=== PATIENT | male | born 1945 | race Caucasian/White ===

== ENCOUNTER 2016-08-12 01:18 | Emergency (ER) | payer OTHER, BC ==
[~2016-08-12] VITALS: Ht 170.2 cm; Wt 101.6 kg
[~2016-08-12 01:18] MED LIST: ALBU18002 INH; AMLO-110 PO; ATOR-22 PO; CALC-20 PO; CHOL1000 PO; CYCL0.052 OP; DOCU100C PO; IBUP-1050 PO; METO25TA56 PO; MULTCAP33 PO; PANT40TA PO; POLYSOL4 OP; PRD/1 PO; SILD100T PO; SYMIN160 INH; TRIATAB3 PO; USTE45IN INJ
[2016-08-12 01:25] VITALS: TEMP 36.6; Ht 170.2 cm; Wt 101.6 kg
[2016-08-12] MEDS ORDERED: SODIUM CHLORIDE 0.9% 500ML 500 ML IV STA (02:05)
[2016-08-12] MEDS ORDERED: MULT-190 PO (02:12)
[2016-08-12] MEDS ORDERED: CYCL0.052 OP (02:15)
[2016-08-12 02:24] LABS: BASO % 0.2 %; BASO ABS # 0.01 K/uL (0-0.2); COMPLETE YES; EOS % 1.6 %; IG% 0.2 %; LYMPH % 16.8 %; LYMPH ABS # 0.94 K/uL (1.2-3.4); MEAN CELL VOLUME 86.8 fL (80-100); MEAN CORPUSCULAR HEMOGLOBIN 28.5 pg (25-34); MEAN CORPUSCULAR HGB CONC 32.9 g/dl (32-36); MEAN PLATELET VOLUME 9.6 fL (7.4-10.4); MONO % 7.3 %; NEUT % 73.9 %; PLATELET COUNT 142 K/uL (130-400); RED BLOOD COUNT 4.84 M/uL (4.7-6.1)
[2016-08-12 02:42] LABS: ALT/SGPT 89 U/L (12-78); AST/SGOT 92 U/L (15-37); BLOOD UREA NITROGEN 17 mg/dl (7-18); BUN/CREATININE RATIO 21.3 (10-20); CARBON DIOXIDE 23 mmol/L (21-32); CHLORIDE 108 mmol/L (98-107); CREATININE 0.81 mg/dl (0.60-1.40); GLUCOSE 112 mg/dl (70-99); SODIUM 143 mmol/L (136-145)
[2016-08-12 02:47] LABS: ALKALINE PHOSPHATASE 99 U/L (45-117); CKMB/CK RATIO 1.8 (0-3.0)
--- NOTE | 2016-08-12 04:14 | EMERGENCY ROOM VISIT NOTE ---
ED Visit Note First contact with patient: 02:04 I have seen and examined this patient with Jo Ann Méndez and generally agree with the treatment plan as discussed.
[2016-08-12 04:18] VITALS: O2SAT 94
[2016-08-12 04:27] VITALS: BP 135/75; PULSE 57; O2SAT 94
--- NOTE | 2016-08-12 05:28 | EMERGENCY ROOM VISIT NOTE ---
History First contact with patient: 02:04 Chief Complaint: FALL Stated Complaint: ALCOHOL OVERDOSE/FALL History of Present Illness The patient is a 70 year old male who presents to the Emergency Room with complaints of fall. Patient does not remember falling. Patient states he got up out of bed to go the bathroom and next thing he remembers he was on the ground. Patient did have some alcoholic beverages last night. Patient denies headache, neck pain, chest pain, dyspnea, abdominal pain, back pain or any other medical complaints. No drug use. Review of Systems See HPI for pertinent positives & negatives. A total of 10 systems reviewed and were otherwise negative. Past Medical/Surgical History Medical Problems: (1) COPD (chronic obstructive pulmonary disease) (2) Dyslipidemia (3) HTN (hypertension) (4) Lupus Surgical Problems: (1) H/O bilateral hip replacements (2) History of carpal tunnel surgery of left wrist (3) History of repair of anterior cruciate ligament of left knee (4) History of repair of anterior cruciate ligament of right knee (5) SLAP (superior labrum from anterior to posterior) tear Social History Smoking Status: Never Smoker Alcohol Use: occasionally Drug Use: none Marital Status: Housing Status: lives with family Current/Historical Medications Scheduled Amlodipine (Norvasc), 5 MG PO QAM Atorvastatin (Lipitor), 1 TAB PO HS Budesonide/Formoterol Fumarate (Symbicort 160/4.5 Inhaler ), 2 PUFFS INH BID Calcium Carbonate-Vitamin D (Calcium 600 + D), 1 TAB PO QAM Cholecalciferol (Vitamin D3), 1 TAB PO QAM Cyclosporine (Ophth) (Restasis), 1 DROP OP BID Metoprolol Tartrate (Lopressor) (Lopressor), 25 MG PO BID Ocuvite Preservision (Ocuvite Preservision), 2 TAB PO DAILY Pantoprazole (Protonix), 40 MG PO BID Prednisone (Prednisone), 2 MG PO QAM Sildenafil Citrate (Viagra), 50 MG PO PRN Triamterene/Hctz (Triamterene/Hctz 37.5-25MG), 1 TAB PO QAM Ustekinumab (Stelara), 1 DOSE INJ [id number] Scheduled PRN Albuterol Sulfate (Proair Respiclick), 1-2 PUFFS INH Q4-6H PRN for SOB/Wheezing Polyethylene Glycol-Propylene (Systane), 1 DROPS OP QID PRN for PRN Allergies Coded Allergies: Penicillins (Verified Allergy, Severe, THROAT SWELLING, 08/12/16) Physical Exam Vital Signs Date Time Temp Pulse Resp B/P Pulse Ox O2 Delivery O2 Flow Rate FiO2 08/12/16 04:27 57 20 135/75 94 08/12/16 04:18 94 Room Air 08/12/16 03:07 59 20 127/73 93 Room Air 08/12/16 01:25 36.6 58 18 134/77 98 Room Air Pain Rating (0-10): 0 Physical Exam PHYSICAL EXAM: VITALS: Vitals are noted on the nurse's note and reviewed by myself. Vital signs stable. GENERAL: Pleasant male, in no acute distress, nondiaphoretic, well-developed well-nourished. SKIN: The skin was without obvious lacerations or abrasions. Capillary reflex less than 2 seconds. HEAD: Normocephalic atraumatic. EARS: External auditory canals clear, tympanic membranes pearly ortiz without erythema or effusion bilaterally. No hemotympanums. No patel sign. No mastoid tenderness. EYES: Pupils equal round and reactive to light and accommodation. Conjunctivae with injection, sclerae without icterus. Extraocular movements intact. NOSE: Patent, turbinates without inflammation or discharge. No sinus tenderness. No septal hematoma or bleeding. FACE: No facial bone tenderness. Full range of motion of the jaw without tenderness. MOUTH: Mucous membranes moist. Pharynx without erythema or exudate. Uvula midline. Airway patent. Tongue does not deviate. NECK: Supple without nuchal rigidity. Cervical spine is nontender. Full range of motion of the neck without tenderness. No JVD. HEART: Regular rate and rhythm LUNGS: Clear to auscultation bilaterally without wheezes, rales or rhonchi. No dullness to percussion. No retractions or accessory muscle use. No chest wall tenderness. ABDOMEN: Positive bowel sounds x 4. Normal tympanic percussion. Soft, nontender, without masses or organomegaly. No guarding or rebound tenderness. MUSCULOSKELETAL: No tenderness of the thoracic or lumbar spine. No tenderness with pelvic rocking. Full range of motion without tenderness to palpation in all extremities. Normal gait. Strength 5/5 throughout. Peripheral pulses 2+. NEURO: Patient was alert and oriented to person place and time. Normal Mini- Mental status exam. Normal sensation to light and sharp touch. No focal neurological deficits. Medical Decision & Procedures Laboratory Results 08/12/16 01:40 Red Blood Count 4.84, Mean Corpuscular Volume 86.8, Mean Corpuscular Hemoglobin 28.5, Mean Corpuscular Hemoglobin Concent 32.9, Mean Platelet Volume 9.6, Neutrophils (%) (Auto) 73.9, Lymphocytes (%) (Auto) 16.8, Monocytes (%) (Auto) 7.3, Eosinophils (%) (Auto) 1.6, Basophils (%) (Auto) 0.2, Neutrophils # (Auto) 4.14, Lymphocytes # (Auto) 0.94, Monocytes # (Auto) 0.41, Eosinophils # (Auto) 0.09, Basophils # (Auto) 0.01 08/12/16 01:40 Test 08/12/16 01:40 08/12/16 02:25 White Blood Count 5.60 K/uL (4.8-10.8) Red Blood Count 4.84 M/uL (4.7-6.1) Hemoglobin 13.8 g/dL (14.0-18.0) Hematocrit 42.0 % (42-52) Mean Corpuscular Volume 86.8 fL (80-100) Mean Corpuscular Hemoglobin 28.5 pg (25-34) Mean Corpuscular Hemoglobin Concent 32.9 g/dl (32-36) Platelet Count 142 K/uL (130-400) Mean Platelet Volume 9.6 fL (7.4-10.4) Neutrophils (%) (Auto) 73.9 % Lymphocytes (%) (Auto) 16.8 % Monocytes (%) (Auto) 7.3 % Eosinophils (%) (Auto) 1.6 % Basophils (%) (Auto) 0.2 % Neutrophils # (Auto) 4.14 K/uL (1.4-6.5) Lymphocytes # (Auto) 0.94 K/uL (1.2-3.4) Monocytes # (Auto) 0.41 K/uL (0.11-0.59) Eosinophils # (Auto) 0.09 K/uL (0-0.5) Basophils # (Auto) 0.01 K/uL (0-0.2) RDW Standard Deviation 50.3 fL (36.4-46.3) RDW Coefficient of Variation 15.7 % (11.5-14.5) Immature Granulocyte % (Auto) 0.2 % Immature Granulocyte # (Auto) 0.01 K/uL (0.00-0.02) Anion Gap 12.0 mmol/L (3-11) Est Creatinine Clear Calc Drug Dose 99.1 ml/min Estimated GFR () 105.8 Estimated GFR (Non- 91.3 BUN/Creatinine Ratio 21.3 (10-20) Calcium Level 9.0 mg/dl (8.5-10.1) Total Bilirubin 0.3 mg/dl (0.2-1) Direct Bilirubin 0.1 mg/dl (0-0.2) Aspartate Amino Transf (AST/SGOT) 92 U/L (15-37) Alanine Aminotransferase (ALT/SGPT) 89 U/L (12-78) Alkaline Phosphatase 99 U/L (45-117) Total Creatine Kinase 174 U/L (39-308) Creatine Kinase MB 3.2 ng/ml (0.5-3.6) Creatine Kinase MB Ratio 1.8 (0-3.0) Troponin I < 0.015 ng/ml (0-0.045) Total Protein 7.9 gm/dl (6.4-8.2) Albumin 3.5 gm/dl (3.4-5.0) Ethyl Alcohol mg/dL 272.0 mg/dl (0-3) Medications Administered Medications (Trade) Dose Ordered Sig/Dyan Route Start Time Stop Time Status Last Admin Dose Admin Sodium Chloride (Nss 500ml) 500 ml @ 999 mls/hr Q31M STAT IV 08/12/16 02:05 08/12/16 02:35 DC 08/12/16 03:10 999 MLS/HR ED Course Prior records/ancillary studies reviewed and summarized above. Nursing notes reviewed. Additional history obtained from family The patient's history was concerning for fall Differential diagnosis: Etiologies such as metabolic, infection, hypo/hyperglycemia, electrolyte abnormalities, cardiac sources, intracerebral event, toxicologic, neurologic, as well as others were entertained. Physical examination: As above. ER treatment provided: IV Lock IV fluids On reassessment the patient felt better. Diagnostics interpretation by me: ECG: Normal sinus, normal intervals, no acute ST-T wave changes, rate of 56. Impression sinus spray cardiac myself The labs revealed alcohol at 272. Negative troponin. Mildly elevated LFTs most likely from the alcohol Imaging studies: Head and cervical CTs are read by stat radiology and negative for fracture or bleed. Chest x-ray with no acute consolidation or pneumothorax per my interpretation Exam and history seem consistent with fall most likely from his alcohol intoxication. His alcohol is quite high. His was highly encouraged to quit drinking as this is unhealthy. Patient had unremarkable workup besides that. He no other complaints. He was tolerating fluids. He was advised to follow-up family medicine in a day or 2 or here in the ER sooner for headache, chest pain , dyspnea, worsening signs or symptoms or as needed. Patient did not have an acute abdomen on exam. He was well-appearing. He was discharged home in the care of his family.By the evaluation outlined above emergent etiologies such as infection, electrolyte abnormalities, cardiac sources, intracerebral event, neurologic, abnormalities blood glucose, metabolic, as well as others were deemed relatively unlikely. The pt informed about the findings as listed above. All questions were answered and pleased with the treatment. Return instructions were outlined and the patient was discharged in stable condition. Referral: The patient was referred back to primary care physician for follow-up in 2 to 3 days for a recheck of the current condition. Case reviewed with my attending. Medical Decision As above Impression Primary Impression: Alcohol intoxication Additional Impression: Fall Departure Information Dispostion Home / Self-Care Condition GOOD Forms HOME CARE DOCUMENTATION FORM, IMPORTANT VISIT INFORMATION Patient Instructions My [facility], ED Intoxication Alcohol Additional Instructions Keep well-hydrated. Tylenol every 6 hours as needed for pain (Maximum 3000 mg Tylenol in 24 hr period). Read head injury handout and return for any symptoms. Avoid alcohol and contact sports/activities for one week and follow up with family doctor prior to returning to these activities if still symptomatic. Ice and elevate head. Follow up with family doctor in 2-3 days. No driving for the next 24 hours. Recommend no alcohol for the next 48 hours and avoid binge drinking in the future. Return to ER sooner for chest pain, abdominal pain, worsening signs or symptoms or as needed. Problem Qualifiers
--- NOTE | 2016-08-12 07:05 | DIAGNOSTIC IMAGING REPORT ---
CT SCAN OF THE BRAIN WITHOUT IV CONTRAST CLINICAL HISTORY: Fall. Intoxication. COMPARISON STUDY: No priors. TECHNIQUE: Unenhanced axial CT scan of the brain is performed from the vertex to the skull base. FINDINGS: Brain parenchyma: There are age-related involutional changes noting mild subcortical and periventricular microangiopathic change. There is no hemorrhage, mass effect, or evidence of acute territorial ischemia by CT criteria. Ray-white matter is preserved. No extra-axial fluid collection is seen. Ventricles, sulci, cisterns: Prominent secondary to involutional change. Intracranial vasculature: There is atherosclerotic calcification of the cavernous carotid and vertebral arteries. Calvarium: There is no depressed calvarial fracture. Sinuses and mastoids: The visualized paranasal sinuses are clear. The mastoid air cells are well pneumatized. Orbits: The bony orbits are grossly intact. IMPRESSION: There is no hemorrhage, mass effect, or evidence of acute territorial ischemia by CT criteria. Electronically signed by: Wily Melendez M.D. 08/12/2016 7:03 AM Dictated Date/Time: 08/12/2016 7:01 AM
--- NOTE | 2016-08-12 09:27 | DIAGNOSTIC IMAGING REPORT ---
CT SCAN OF THE CERVICAL SPINE CLINICAL HISTORY: Fall. Intoxication. COMPARISON STUDY: No priors. TECHNIQUE: CT scan of the cervical spine is performed from the skull base to the upper thoracic spine. Images are reviewed in the axial, sagittal, and coronal planes. IV contrast was not administered for this examination. CT DOSE: 1137.59 mGy.cm FINDINGS: Skeletal structures: The skeletal structures are osteopenic. There is no evidence of fracture or subluxation involving the cervical spine. Vertebral body height is maintained. There is minimal retrolisthesis of C4-C5 and C5-C6. Alignment is otherwise maintained. There is straightening of cervical lordosis with reversal centered at C4. The odontoid process and lateral masses are intact. The atlantoaxial articulation is preserved noting productive degenerative change. The spinous processes appear intact. Anterior osteophytes are seen throughout. There is moderate to advanced multilevel cervical spondylosis. Uncovertebral and facet arthropathy contribute to neural foraminal narrowing at most levels. Intervertebral discs: There is moderate degenerative disc space narrowing seen at C4-C5 and C5-C6. The remaining disc spaces appear preserved. Central canal: Posterior disc osteophyte complexes at C3-C4, C4-C5, and C5-C6 likely contribute to acquired compromise of the central canal. Soft tissues: The prevertebral and paraspinous soft tissues are within normal limits. There is advanced after carotid calcification of the carotid bulbs. There is a 2.6 cm sebaceous cyst identified in the posterior left lower neck on image #412. Calvarium: The visualized calvarium at the skull base appears intact. Brain parenchyma: Partially visualized brain parenchyma the skull base is within normal limits. Sinuses and mastoids: The visualized paranasal sinuses are clear. The mastoid air cells are well pneumatized. Lung apices: Clear as visualized. IMPRESSION: 1. There is no evidence of fracture or subluxation involving the cervical spine. 2. Osteopenia and spondylotic change as above. Electronically signed by: Wily Melendez M.D. 08/12/2016 9:26 AM Dictated Date/Time: 08/12/2016 9:22 AM
--- NOTE | 2016-08-12 09:59 | DIAGNOSTIC IMAGING REPORT ---
SINGLE VIEW CHEST CLINICAL HISTORY: Atypical chest pain. Intoxication. FINDINGS: An AP, portable, upright chest radiograph is compared to study dated 09/11/2012 and correlated with chest CT dated 10/11/2012. The examination is degraded by portable technique, large body habitus, and apical and out of positioning. The heart is enlarged. The pulmonary vasculature is noncongested. Mild elevation of the right hemidiaphragm and chronic interstitial thickening is similar to previous. No airspace consolidation, large pleural effusion, or pneumothorax is seen. The bony thorax is grossly intact. IMPRESSION: Cardiomegaly with no active disease in the chest. Electronically signed by: Wily Melendez M.D. 08/12/2016 9:57 AM Dictated Date/Time: 08/12/2016 9:56 AM
[2016-09-04] MEDS ORDERED: ASPI81TA28 PO (14:38)
[2016-09-04] MEDS ORDERED: OMEG10002 PO (14:38)
== END 2016-08-12 04:29 | disposition home or self-care (01) ==
LOC: EDBD 01:18 → C.EDB 01:19
DX: F10.129 Alcohol abuse with intoxication, unspecified (principal); Y90.8 Blood alcohol level of 240 mg/100 ml or more; W19.XXXA Unspecified fall, initial encounter; I10 Essential (primary) hypertension; E78.5 Hyperlipidemia, unspecified; J44.9 Chronic obstructive pulmonary disease, unspecified; M32.9 Systemic lupus erythematosus, unspecified; Z96.642 Presence of left artificial hip joint; Z96.643 Presence of artificial hip joint, bilateral; Z87.828 Personal history of other (healed) physical injury and trauma; Z79.899 Other long term (current) drug therapy; Z88.0 Allergy status to penicillin

== ENCOUNTER → 2016-12-04 | Outpatient (CLI) | payer OTHER, BC ==
[~2016-12-04] MED LIST changes: +ASPI81TA28 PO; -DOCU100C PO; -IBUP-1050 PO; +MULT-190 PO; -MULTCAP33 PO; +OMEG10002 PO
== END | disposition home or self-care (01) ==
LOC: C.MAMM 15:07
PROVIDERS: ATTEND Internal Medicine
DX: Z79.52 Long term (current) use of systemic steroids (principal)

== ENCOUNTER → 2017-11-14 | Outpatient (CLI) | payer OTHER, BC ==
--- NOTE | 2017-11-14 14:50 | DIAGNOSTIC IMAGING REPORT ---
CHEST 2 VIEWS ROUTINE CLINICAL HISTORY: J45.909 [id number] dyspnea COMPARISON STUDY: 08/12/2016 FINDINGS: Mild stable cardia megaly. Diaphragms smooth. Trace pleural fluid right base. Mild increase in basilar interstitial markings compared to the prior study. IMPRESSION: Mild basilar bronchitis. Trace pleural fluid right base. The above report was generated using voice recognition software. It may contain grammatical, syntax or spelling errors. Electronically signed by: Wood Skaggs M.D. 11/14/2017 2:49 PM Dictated Date/Time: 11/14/2017 2:48 PM
== END | disposition home or self-care (01) ==
LOC: C.RAD1850 14:18
PROVIDERS: ATTEND Internal Medicine
DX: J45.909 Unspecified asthma, uncomplicated (principal); J40 Bronchitis, not specified as acute or chronic

== ENCOUNTER 2018-03-01 09:36 | Emergency (ER) | payer OTHER, BC ==
[~2018-03-01] VITALS: Ht 170.2 cm; Wt 95.8 kg
[~2018-03-01 09:36] MED LIST changes: -AMLO-110 PO; +AMLO5TAB3 PO; +APIX1TAB PO; -ASPI81TA28 PO; +CLOP1TAB54 PO; +METO-551 PO; -METO25TA56 PO; -MULT-190 PO; +MULTCAP33 PO
[2018-03-01 09:41] VITALS: Ht 170.2 cm; Wt 95.8 kg
[2018-03-01] MEDS ORDERED: OXYMETAZOLINE HCL 0.05% NA SPR 15 ML BTL ONE (09:46)
--- NOTE | 2018-03-01 09:57 | EMERGENCY ROOM VISIT NOTE ---
History Report prepared by Papo: Sandra Alvarado Under the Supervision of: Dr. Gabriel Billy M.D. First contact with patient: 09:50 Chief Complaint: NOSE BLEED (MINOR) Stated Complaint: NOSE BLEED History of Present Illness The patient is a 72 year old male who presents to the Emergency Room with complaints of a mild nosebleed beginning around 0815 this morning. EMR reviewed Pt is on Eliquis and Plavix. He was seen by Dr. Heredia ENT and had endoscopy cautery and posterior packing in the OR on . 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 He describes his bleeding as a "trickling." He denies any SOB. Patient used Afrin at home but bleed continue to trickle. Source of History: patient Onset: 0815 this morning Position: nose (right nare) Symptom Intensity: mild Quality: other (trickling) Associated Symptoms: No SOB Review of Systems See HPI for pertinent positives and negatives. A total of ten systems were reviewed and were otherwise negative. Past Medical & Surgical Medical Problems: (1) Asthma (2) Atrial flutter (3) COPD (chronic obstructive pulmonary disease) (4) Dyslipidemia (5) HTN (hypertension) (6) Lupus Surgical Problems: (1) H/O bilateral hip replacements (2) History of carpal tunnel surgery of left wrist (3) History of coronary artery stent placement (4) History of repair of anterior cruciate ligament of left knee (5) History of repair of anterior cruciate ligament of right knee (6) Hx of cardiac catheterization (7) S/P cholecystectomy (8) SLAP (superior labrum from anterior to posterior) tear Family History Cancer Gallbladder disease Heart disease Hypertension Social History Smoking Status: Never Smoker Alcohol Use: heavy Drug Use: none Marital Status: Housing Status: lives with family Current/Historical Medications Scheduled Amlodipine (Norvasc), 5 MG PO DAILY Apixaban (Eliquis), 5 MG PO BID Atorvastatin (Lipitor), 80 MG PO HS Budesonide/Formoterol Fumarate (Symbicort 160-4.5 Mcg/Act), 2 PUFFS INH BID Calcium Carbonate-Cholecalcife (Calcium 600+D 600-800 mg-Unit), 1 TAB PO DAILY Clopidogrel (Plavix), 75 MG PO DAILY Cyclosporine (Ophth) (Restasis), 1 DROP OP BID Metoprolol Tartrate (Lopressor) (Lopressor), 50 MG PO BID Multiple Vitamins W/ Minerals (Preservision Areds 2), 2 CAP PO QPM Pantoprazole (Protonix), 40 MG PO BID Polyethylene Glycol-Propylene (Systane), 1 DROPS OP UD Prednisone (Prednisone), 2 MG PO DAILY Triamterene/Hctz (Dyazide 37.5MG/25MG), 1 CAP PO DAILY Ustekinumab (Stelara), 45 MG INJ UD Scheduled PRN Albuterol Sulfate (Proair Respiclick), 2 PUFFS INH DAILY PRN for SOB/Wheezing Allergies Coded Allergies: Penicillins (Verified Allergy, Severe, THROAT SWELLING, 03/01/18) Physical Exam Vital Signs Date Time Temp Pulse Resp B/P (MAP) Pulse Ox O2 Delivery O2 Flow Rate FiO2 03/01/18 10:52 47 14 145/62 97 03/01/18 09:41 82 18 136/81 97 Room Air Physical Exam Physical Exam GENERAL: He is oriented to person, place, and time. He appears well-developed and well-nourished. He does not appear distressed. HENT: Exam performed. Head: Normocephalic and atraumatic. Right Ear: External ear normal. No mastoid tenderness. Left Ear: External ear normal. No mastoid tenderness. Nose: Epistaxis from the right nare Mouth/Throat: The oropharynx is clear and moist. No trismus in the jaw. No dental abscesses or uvula swelling. No oropharyngeal exudate or tonsillar abscesses. EYES: Conjunctivae and EOM are normal. Pupils are equal, round, and reactive to light. Right eye exhibits no discharge. Left eye exhibits no discharge. No scleral icterus. NECK: Normal range of motion. Neck supple. No JVD present. No spinous process tenderness present. No carotid bruit present. No rigidity. No tracheal deviation and normal range of motion present. No Brudzinski's sign and no Kernig 's sign noted. CV: Normal rate, regular rhythm, normal heart sounds and intact distal pulses. There is no peripheral edema. Palpable radial pulses bue. PULM/CHEST: Effort normal and breath sounds normal. No respiratory distress. No stridor. He has no wheezes. He has no rales. Chest Wall: He exhibits no tenderness. ABD: The abdomen is soft. Bowel sounds are normal. He has no distension. No mass is present. There is no tenderness. There is no rebound, no guarding, no Perez's sign and no tenderness at McBurney's point. Rovsig negative. MUSC/SKEL: Normal range of motion. There is no peripheral edema, tenderness or deformity. LYMPH: No cervical adenopathy. NEURO: He is alert and oriented to person, place, and time. He has normal strength. No cranial nerve deficit or sensory deficit. Coordination and gait normal. GCS eye subscore is 4. GCS verbal subscore is 5. GCS motor subscore is 6. Cerebellar tests wnl. SKIN: Skin is warm and dry. He is not diaphoretic. PSYCH: He has a normal mood and affect. Behavior is normal. Judgment and thought content normal. Medical Decision & Procedures ED Course 0950: EMR reviewed Pt is on Eliquis and Plavix. He was seen by Dr. Yan JIMÉNEZ and had endoscopy cautery and posterior packing in the OR on . 0951: The patient was evaluated in room A12. A complete history and physical exam was performed. Manual pressure was applied to his external nares. Will recheck on the patient. 1023: I checked on the patient at this time. His nosebleed has stopped. He will be observed in the ED to ensure his nosebleed does not begin again. If it does not, he is in agreement that he can be discharged home. 1039: Epistaxis resolved. DISCHARGE - Plan of care discussed with patient and questions answered. The patient was given both verbal and printed discharge instructions. The patient verbalized understanding and ability to comply. The patient is to seek outpatient follow up as noted in the discharge instructions. The patient verbalized understanding and ability to comply. The patient is discharged in stable condition. The patient was instructed to return for worsening symptoms. Medical Decision 0950: EMR reviewed Pt is on Eliquis and Plavix. He was seen by Dr. Yan JIMÉNEZ and had endoscopy cautery and posterior packing in the OR on . 0951: The patient was evaluated in room A12. A complete history and physical exam was performed. Manual pressure was applied to his external nares. Will recheck on the patient. 1023: I checked on the patient at this time. His nosebleed has stopped. He will be observed in the ED to ensure his nosebleed does not begin again. If it does not, he is in agreement that he can be discharged home. 1039: Epistaxis resolved. DISCHARGE - Plan of care discussed with patient and questions answered. The patient was given both verbal and printed discharge instructions. The patient verbalized understanding and ability to comply. The patient is to seek outpatient follow up as noted in the discharge instructions. The patient verbalized understanding and ability to comply. The patient is discharged in stable condition. The patient was instructed to return for worsening symptoms. Medication Reconcilliation Current Medication List: was personally reviewed by me Blood Pressure Screening Patient's blood pressure: Normal blood pressure Blood pressure disposition: Did not require urgent referral Impression Primary Impression: Epistaxis Scribe Attestation The scribe's documentation has been prepared under my direction and personally reviewed by me in its entirety. I confirm that the note above accurately reflects all work, treatment, procedures, and medical decision making performed by me. The chart was completed utilizing [employer] Speech voice recognition software. Grammatical errors, random word insertions, pronoun errors, and incomplete sentences are an occasional consequence of this system due to software limitations, ambient noise, and hardware issues. Any formal questions or concerns about the content, text, or information contained within the body of this dictation should be directly addressed to the physician for clarification. Departure Information Dispostion Home / Self-Care Referrals Walt Caro M.D. (PCP) Forms HOME CARE DOCUMENTATION FORM, IMPORTANT VISIT INFORMATION, WORK / SCHOOL INSTRUCTIONS Patient Instructions My [facility]
[2018-03-01] MEDS ORDERED: CYCL0.052 OP (10:23)
[2018-03-01] MEDS ORDERED: PANT40TA PO (10:23)
[2018-03-01] MEDS ORDERED: PRD/1 PO (10:23)
[2018-03-01] MEDS ORDERED: MULT60CA PO (10:23)
[2018-03-01] MEDS ORDERED: ALBU18002 INH (10:23)
[2018-03-01] MEDS ORDERED: SYMIN INH (10:23)
[2018-03-01] MEDS ORDERED: CLOP1TAB15 PO (10:23)
[2018-03-01] MEDS ORDERED: AMLO5TAB3 PO (10:23)
[2018-03-01] MEDS ORDERED: METO50TA16 PO (10:23)
[2018-03-01] MEDS ORDERED: APIX1TAB3 PO (10:23)
[2018-03-01] MEDS ORDERED: ATOR80TA PO (10:23)
[2018-03-01] MEDS ORDERED: POLYSOL4 OP (10:23)
[2018-03-01] MEDS ORDERED: CALC-459 PO (10:23)
[2018-03-01] MEDS ORDERED: TRIA37.5 PO (10:23)
[2018-03-01] MEDS ORDERED: USTE45IN2 INJ (10:23)
[2018-03-01 10:52] VITALS: BP 145/62; PULSE 47; O2SAT 97
== END 2018-03-01 10:53 | disposition home or self-care (01) ==
LOC: C.EDB 09:37 → C.EDA 10:53
DX: R04.0 Epistaxis (principal); Z79.01 Long term (current) use of anticoagulants; Z79.02 Long term (current) use of antithrombotics/antiplatelets; I10 Essential (primary) hypertension; I48.92 Unspecified atrial flutter; E78.5 Hyperlipidemia, unspecified; J44.9 Chronic obstructive pulmonary disease, unspecified; Z88.0 Allergy status to penicillin

== ENCOUNTER 2018-03-03 10:13 | Emergency (ER) | payer OTHER, BC ==
[~2018-03-03] VITALS: Ht 170.2 cm; Wt 95.1 kg
[~2018-03-03 10:13] MED LIST changes: -APIX1TAB PO; +APIX1TAB3 PO; -ATOR-22 PO; +ATOR80TA PO; -CALC-20 PO; +CALC-459 PO; -CHOL1000 PO; +CLOP1TAB15 PO; -CLOP1TAB54 PO; -METO-551 PO; +METO50TA16 PO; +MULT60CA PO; -MULTCAP33 PO; -OMEG10002 PO; -SILD100T PO; +SYMIN INH; -SYMIN160 INH; +TRIA37.5 PO; -TRIATAB3 PO; -USTE45IN INJ; +USTE45IN2 INJ
[2018-03-03 10:27] VITALS: Ht 170.2 cm; Wt 95.1 kg
[2018-03-03] MEDS ORDERED: OXYMETAZOLINE HCL 0.05% NA SPR 15 ML BTL ONE (10:45)
[2018-03-03 12:05] VITALS: BP 140/77; PULSE 50; O2SAT 94
[2018-03-03] MEDS ORDERED: SILVER NITR/POTASSIUM NITRATE APPLICATOR ONE (12:11)
--- NOTE | 2018-03-03 12:29 | EMERGENCY ROOM VISIT NOTE ---
History First contact with patient: 10:31 Chief Complaint: NOSE BLEED (MINOR) Stated Complaint: NOSE BLEED History of Present Illness The patient is a 72 year old male who presents to the Emergency Room with complaints of right-sided nosebleed. The patient's symptoms started overnight. It is intermittently bled since then. He has had several nosebleeds in the past month. He has seen Dr. Heredia at least twice. He is on Eliquis and Plavix. The patient denies any other bleeding issues. He denies any lightheadedness or dizziness. He denies any specific trauma that resulted in his nosebleed. Review of Systems As above otherwise negative for 10 systems Past Medical/Surgical History Medical Problems: (1) Asthma (2) Atrial flutter (3) COPD (chronic obstructive pulmonary disease) (4) Dyslipidemia (5) HTN (hypertension) (6) Lupus Surgical Problems: (1) H/O bilateral hip replacements (2) History of carpal tunnel surgery of left wrist (3) History of coronary artery stent placement (4) History of repair of anterior cruciate ligament of left knee (5) History of repair of anterior cruciate ligament of right knee (6) Hx of cardiac catheterization (7) S/P cholecystectomy (8) SLAP (superior labrum from anterior to posterior) tear Family History Cancer Gallbladder disease Heart disease Hypertension Social History Smoking Status: Former Smoker Alcohol Use: heavy Drug Use: none Marital Status: Housing Status: lives with family Current/Historical Medications Scheduled Amlodipine (Norvasc), 5 MG PO DAILY Apixaban (Eliquis), 5 MG PO BID Atorvastatin (Lipitor), 80 MG PO HS Budesonide/Formoterol Fumarate (Symbicort 160-4.5 Mcg/Act), 2 PUFFS INH BID Calcium Carbonate-Cholecalcife (Calcium 600+D 600-800 mg-Unit), 1 TAB PO DAILY Clopidogrel (Plavix), 75 MG PO DAILY Cyclosporine (Ophth) (Restasis), 1 DROP OP BID Metoprolol Tartrate (Lopressor) (Lopressor), 50 MG PO BID Multiple Vitamins W/ Minerals (Preservision Areds 2), 2 CAP PO QPM Pantoprazole (Protonix), 40 MG PO BID Polyethylene Glycol-Propylene (Systane), 1 DROPS OP UD Prednisone (Prednisone), 2 MG PO DAILY Triamterene/Hctz (Dyazide 37.5MG/25MG), 1 CAP PO DAILY Ustekinumab (Stelara), 45 MG INJ UD Scheduled PRN Albuterol Sulfate (Proair Respiclick), 2 PUFFS INH DAILY PRN for SOB/Wheezing Physical Exam Vital Signs Date Time Temp Pulse Resp B/P (MAP) Pulse Ox O2 Delivery O2 Flow Rate FiO2 03/03/18 12:05 50 20 140/77 94 Room Air 03/03/18 10:27 69 20 137/81 97 Room Air Physical Exam CONSTITUTIONAL/VITAL SIGNS: Reviewed / noted above. GENERAL: Non-toxic in appearance. INTEGUMENTARY: Warm, dry, and [place]. HEAD: Normocephalic. EYES: without scleral icterus or trauma. ENT/OROPHARYNX: clear and moist. There is no active bleeding at this time. There appears to have been bleeding from the right nares recently. There is no posterior oropharyngeal bleeding. LYMPHADENOPATHY/NECK: Is supple without lymphadenopathy or meningismus. RESPIRATORY: Lungs clear and equal. CARDIOVASCULAR: Regular rate and rhythm. GI/ABDOMEN: Soft and nontender. No organomegaly or pulsatile mass. No rebound or guarding. Normal bowel sounds. EXTREMITIES: Warm and well perfused. BACK: No CVA tenderness. NEUROLOGICAL: Intact without focal deficits. PSYCHIATRIC: normal affect. MUSCULOSKELETAL: Normally developed with good muscle tone. TRIAGE NURSING DOCUMENTATION REVIEWED. Medical Decision & Procedures ED Course The patient was evaluated. A Afrin-soaked cotton ball was placed in the nose. There appeared to be a small amount of bleeding from the middle of the septum. After this was in place for a time, the nose was reevaluated. There is no continued bleeding but a small area in the middle of the septum appeared to be bleeding and therefore this was cauterized with a small amount of silver nitrate. The patient is felt to be stable for discharge. He will call Dr. Heredia in the morning. Medical Decision There is no indication of anemia. He is on anticoagulations and antiplatelet medication. This is likely contributing to his symptoms. The patient presents with a nosebleed. It was mostly controlled by the time I saw the patient. Afrin-soaked pledget was placed in the nares. A small amount of silver nitrate cautery was used to cauterize the mid medial septum area. The patient is felt to be stable for discharge. Medication Reconcilliation Current Medication List: was personally reviewed by me Blood Pressure Screening Patient's blood pressure: Normal blood pressure Impression Primary Impression: Epistaxis Departure Information Referrals Pro,Walt Mccarthy M.D. (PCP) Patient Instructions My [facility] Additional Instructions Follow-up with Dr. Heredia. Call tomorrow for appointment.
== END 2018-03-03 12:37 | disposition home or self-care (01) ==
LOC: C.EDB 10:14 → C.EDC 12:37
DX: R04.0 Epistaxis (principal); J45.909 Unspecified asthma, uncomplicated; I48.91 Unspecified atrial fibrillation; J44.9 Chronic obstructive pulmonary disease, unspecified; E78.5 Hyperlipidemia, unspecified; I10 Essential (primary) hypertension; Z87.891 Personal history of nicotine dependence

== ENCOUNTER 2018-03-03 13:56 | Emergency (ER) | payer OTHER, BC ==
[~2018-03-03] VITALS: Ht 170.2 cm; Wt 95.3 kg
[2018-03-03 14:01] VITALS: TEMP 36.7; Ht 170.2 cm; Wt 95.3 kg
[2018-03-03] MEDS ORDERED: LIDOCAINE/EPINEPHRINE 1% 20 ML VIAL INFIL ONE (14:15)
--- NOTE | 2018-03-03 14:17 | EMERGENCY ROOM VISIT NOTE ---
History Report prepared by Papo: Sandra Alvarado Under the Supervision of: Dr. Eric Walsh M.D. First contact with patient: 14:05 Chief Complaint: NOSE BLEED (MINOR) Stated Complaint: NOSE BLEED History of Present Illness The patient is a 72 year old white male with a past medical history of Atrial flutter, COPD, Dyslipidemia, HTN who presents to the ED with a cc of a constant nose bleed beginning this morning. Negative weakness, dizziness, or lightheadedness. He notes he was at the ED this morning and after receiving some Afrin, the patient's right nare stopped bleeding. He was discharged and while reading the newspaper at home today, his right nare began bleeding again. He reports he tried applying pressure for about 20-25 minutes but the bleeding did not ac. Pt takes Plavix and Eliquis for a cardiac stent and Afib. Source of History: patient Onset: this morning Position: nose (right nare) Quality: other (nose bleed) Timing: constant Associated Symptoms: No weakness Note: Negative dizziness or lightheadedness Review of Systems See HPI for pertinent positives and negatives. A total of ten systems were reviewed and were otherwise negative. Past Medical & Surgical Medical Problems: (1) Asthma (2) Atrial flutter (3) COPD (chronic obstructive pulmonary disease) (4) Dyslipidemia (5) HTN (hypertension) (6) Lupus Surgical Problems: (1) H/O bilateral hip replacements (2) History of carpal tunnel surgery of left wrist (3) History of coronary artery stent placement (4) History of repair of anterior cruciate ligament of left knee (5) History of repair of anterior cruciate ligament of right knee (6) Hx of cardiac catheterization (7) S/P cholecystectomy (8) SLAP (superior labrum from anterior to posterior) tear Family History Cancer Gallbladder disease Heart disease Hypertension Social History Smoking Status: Former Smoker Alcohol Use: heavy Drug Use: none Marital Status: Housing Status: lives with family Current/Historical Medications Scheduled Amlodipine (Norvasc), 5 MG PO DAILY Apixaban (Eliquis), 5 MG PO BID Atorvastatin (Lipitor), 80 MG PO HS Budesonide/Formoterol Fumarate (Symbicort 160-4.5 Mcg/Act), 2 PUFFS INH BID Calcium Carbonate-Cholecalcife (Calcium 600+D 600-800 mg-Unit), 1 TAB PO DAILY Clopidogrel (Plavix), 75 MG PO DAILY Cyclosporine (Ophth) (Restasis), 1 DROP OP BID Metoprolol Tartrate (Lopressor) (Lopressor), 50 MG PO BID Multiple Vitamins W/ Minerals (Preservision Areds 2), 2 CAP PO QPM Pantoprazole (Protonix), 40 MG PO BID Polyethylene Glycol-Propylene (Systane), 1 DROPS OP UD Prednisone (Prednisone), 2 MG PO DAILY Triamterene/Hctz (Dyazide 37.5MG/25MG), 1 CAP PO DAILY Ustekinumab (Stelara), 45 MG INJ UD Scheduled PRN Albuterol Sulfate (Proair Respiclick), 2 PUFFS INH DAILY PRN for SOB/Wheezing Allergies Coded Allergies: Penicillins (Verified Allergy, Severe, THROAT SWELLING, 03/03/18) Physical Exam Vital Signs Date Time Temp Pulse Resp B/P (MAP) Pulse Ox O2 Delivery O2 Flow Rate FiO2 03/03/18 16:05 18 03/03/18 15:41 53 16 147/77 98 Room Air 03/03/18 14:01 36.7 46 18 140/83 98 Room Air Physical Exam GENERAL: Awake, alert, well-appearing, NAD HENT: Hemostatic from the bilateral nares. Evidence of prior catheterization of right nares. No septal hematoma. EYES: Normal conjunctiva. Sclera non-icteric. PERRL. No anisocoria. NECK: Supple. No nuchal rigidity. FROM. RESPIRATORY: CTAB, no rhonchi, wheezing, crackles CARDIAC: Bradycardic rhythm and R rate, no MRG ABDOMEN: Soft, NTND, BS+ MSK: No chest wall TTP, no LE edema NEURO: GCS 15, CN 2-12 intact, moves all 4s on command SKIN: No rash or jaundice noted. Medical Decision & Procedures Procedure Anterior Nasal Packing Indication: Nosebleed Verbal consent obtained. Risks and benefits were explained with the usual customary discussion. A 5.5-cm nasal balloon was placed in the R naris in a standard fashion that had been wetted w/ lidocaine w/ 1% epinephrine. The patient tolerated this well. Hemostasis was achieved. No complications. ED Course 1408: The patient was evaluated in room C6. A complete history and physical exam was performed. 1440: I performed an anterior nasal packing in the patient's right nares at this time. 1510: I reevaluated the patient at this time. He was having some scant bleeding. I adjusted his rapid rhino. 1540: I reevaluated the patient. Discussed results and discharge instructions: He verbalized understanding and agreement. The patient is ready for discharge. Medical Decision The patient is a 72 year old white male with a past medical history of Atrial flutter, COPD, Dyslipidemia, HTN who presents to the ED with a cc of a nose bleed beginning this morning. Negative dizziness or lightheadedness. Nursing notes reviewed. Ancillary studies and prior records reviewed. Differential Diagnosis Etiologies such as medication side effect, coagulopathy, septal hematoma, nasal polyp nasal, cancer, as well as others were entertained. Patient was seen and evaluated the bedside. Patient has had 3 nosebleeds within the last several days. The patient was recently seen this morning today Afrin placed patient went home and did have recurrence of nose bleeding. The patient did apply manual as well as pressure with a clamp. The patient does take Eliquis for history of a flutter and does take Plavix. Patient is otherwise asymptomatic and denies any lightheadedness or dizziness. Patient denies any recent trauma or falls. I did discuss obtaining blood work but he declined at this time. I believe this is reasonable given that the patient is asymptomatic. Bilateral nares were observed and the patient did have what appeared to be prior cauterization of the right naris. I did place a 5-1/2 cm balloon Rhino Rocket in the right nares without complication. He did have some scant bleeding and additional manual pressure was applied. The patient still had some scant bleeding from the right naris so I did deflate the balloon of the pyloric cuff in the rapid Rhino was slightly congested to be more anterior. Patient then did have a nasal clamp held in place manually. Upon reassessment 20 minutes later the patient achieved hemostasis. I did speak with high risk case manager in order to ensure the patient follow-up with Dr. Heredia in 2 days time. Patient was given strict follow-up, discharge, and return precautions. All questions were answered. Patient was deemed suitable for outpatient follow-up at this time. Patient agreed with the plan of care and was safely discharged home. Medication Reconcilliation Current Medication List: was personally reviewed by me Blood Pressure Screening Patient's blood pressure: Normal blood pressure Blood pressure disposition: Did not require urgent referral Impression Primary Impression: Epistaxis Scribe Attestation The scribe's documentation has been prepared under my direction and personally reviewed by me in its entirety. I confirm that the note above accurately reflects all work, treatment, procedures, and medical decision making performed by me. Departure Information Dispostion Home / Self-Care Referrals Walt Caro M.D. (PCP) Therese Heredia M.D. Forms HOME CARE DOCUMENTATION FORM, IMPORTANT VISIT INFORMATION, WORK / SCHOOL INSTRUCTIONS Patient Instructions ED Nosebleed, My [facility] Additional Instructions Please return to the emergency department if you have worsening or recurrent symptoms not amenable to at-home treatment. Please call for a follow-up appointment with her primary care physician. Please take your medications as prescribed. If you have other concerns and/or complaints please feel free to also call your primary care physician's office or return the ED for further evaluation, management, and treatment. Take your medications as prescribed. You have been examined and treated today on an emergency basis only. This is not a substitute for, or an effort to provide, complete comprehensive medical care. It is impossible to recognize and treat all injuries or illnesses in a single emergency department visit. It is therefore important that you follow up closely with [facility], your PCP, and/or your specialist(s). Call as soon as possible for an appointment. Thank you for your time and consideration. I look forward to speaking with you again soon. Please don't hesitate to call us if you have any questions.
[2018-03-03 15:41] VITALS: BP 147/77; PULSE 53; O2SAT 98
== END 2018-03-03 16:05 | disposition home or self-care (01) ==
LOC: C.EDB 13:56 → C.EDC 16:05
DX: R04.0 Epistaxis (principal); I48.92 Unspecified atrial flutter; J44.9 Chronic obstructive pulmonary disease, unspecified; E78.5 Hyperlipidemia, unspecified; I10 Essential (primary) hypertension; M32.9 Systemic lupus erythematosus, unspecified; Z96.643 Presence of artificial hip joint, bilateral; Z95.5 Presence of coronary angioplasty implant and graft; Z90.49 Acquired absence of other specified parts of digestive tract; Z87.891 Personal history of nicotine dependence; Z80.9 Family history of malignant neoplasm, unspecified; Z83.79 Family history of other diseases of the digestive system; Z82.49 Family history of ischemic heart disease and other diseases of the circulatory system; Z79.899 Other long term (current) drug therapy; Z79.01 Long term (current) use of anticoagulants; Z88.0 Allergy status to penicillin

== ENCOUNTER 2024-05-06 08:57 | Observation (INO) ==
[2024-05-06] MEDS: ONDANSETRON INJ 2 MG/ML 2 ML VIAL IV STA (09:35)
[2024-05-06] MEDS: SODIUM CHLORIDE 0.9% 500 ML IV ONE (09:36)
[2024-05-06] MEDS: FAMOTIDINE 20MG IV PUSH 20 MG/5 ML SYR IV STA (09:36)
--- NOTE | 2024-05-06 09:40 | Emergency Department Note ---
ED Provider Note History of Present Illness Chief Complaint: Nose Bleed (Major) Stated Complaint: NOSE BLEEDING Time Seen by Provider: 05/06/24 09:12 78-year-old male who returns to the emergency department with his with complaint of recurrent bleeding, nausea and vomiting this morning. The patient was any department yesterday for right epistaxis. It is noted that the patient has had 3 previous ED visits, as well as an ENT cauterization procedure for his nosebleed. I did see the patient yesterday in the emergency department, and placed a 7.5 cm rapid Rhino with approximately 12 mL of air in the balloon. The cuff was firm when the patient left the emergency department. The patient reports that he only had mild bleeding yesterday when he got home. Early this morning, the patient reports that he had to get up to the bathroom because he was nauseated. The patient did have vomiting, however did not have the bathroom laying on, therefore could not see if there was any blood in the vomitus. He now reports mild bleeding from the left nostril as well. Patient reports feeling weak as well. The reports that he has had a downtrending hemoglobin from a month ago, and is concerned that his blood level has dropped even more. The patient does have an appointment scheduled tomorrow at 10:[address] Grigsby. Patient denies any significant headache, chest pain or abdominal pain. It is noted that the patient is currently holding his Eliquis dosing as recommended on yesterday's visit. Home Medications Medication Instructions Recorded Confirmed Type cyclosporine 0.05 % eye drops 1 drops ophthalmic (eye) BID 06/24/18 05/06/24 History (Restasis MultiDose) propylene glycol 0.6 % eye drops 1 drp ophthalmic (eye) QAM PRN Dry 06/24/18 05/06/24 History (Systane Balance) Eye(S) ustekinumab 45 mg/0.5 mL 90 mg subcut UD 06/10/19 05/06/24 History subcutaneous solution (Stelara) vitamins A,C,J-hmxp-qxebxg 4,296 2 cap PO QAM 07/24/19 05/06/24 History mcg-226 mg-90 mg capsule (PreserVision AREDS) calcium 600 mg (as 1 tab PO HS 09/23/21 05/06/24 History carbonate)-vitamin D3 5 mcg (200 unit) tablet loratadine 10 mg tablet (Claritin) 10 mg PO DAILY 09/11/22 05/06/24 History multivitamin (Daily Multi-Vitamin 1 tab PO DAILY 01/18/23 05/06/24 History tablet) prednisone 1 mg tablet 2 mg (2 x 1 mg) PO QAM #180 tabs 07/04/23 05/06/24 Rx amlodipine 5 mg tablet 5 mg PO QAM #90 tabs 10/11/23 05/06/24 Rx pantoprazole 40 mg tablet,delayed 40 mg PO QAM #90 tabs 10/11/23 05/06/24 Rx release (Protonix) apixaban 5 mg tablet (Eliquis) 5 mg PO BID #180 tabs 11/17/23 05/06/24 Rx albuterol sulfate 90 mcg/actuation 2 puff inhalation UD PRN shortness 02/04/24 05/06/24 Rx aerosol inhaler of breath or wheezing #6.7 grams triamterene 37.5 See Rx Instructions .Route 02/22/24 05/06/24 Rx mg-hydrochlorothiazide 25 mg .COMPLEX #90 caps capsule fluticasone 500 mcg-salmeterol 50 1 inh inhalation BID #60 ea 03/17/24 05/06/24 Rx mcg/dose blistr powdr for inhalation (Wixela Inhub) gabapentin 100 mg capsule 100 mg PO HS #30 caps 04/07/24 05/06/24 Rx atorvastatin 80 mg tablet (Lipitor) 80 mg PO HS #90 tabs 04/09/24 05/06/24 Rx verapamil 80 mg tablet 80 mg PO BID #180 tabs 04/09/24 05/06/24 Rx neomycin-bacitracn Zn-polymyx 3.5 1 applic topical BID #15 grams 05/02/24 05/06/24 Rx mg-400 unit-5,000 unit/gram top oint (Triple Antibiotic) cephalexin 500 mg capsule 500 mg PO TID 7 days #21 caps 05/05/24 05/06/24 Rx fluorouracil 5 % topical cream 1 applic topical BID 05/06/24 05/06/24 History Allergies Allergy/AdvReac Type Severity Reaction Status Date / Time Penicillins Allergy Severe THROAT Verified 05/06/24 16:51 SWELLING Past Med/Surg History Problem List (Updated 05/08/24 @ 00:06 by Background [place]) Right-sided epistaxis (Acute) Right-sided epistaxis (Acute) Anemia (Acute) Epistaxis (Acute) Epistaxis (Acute) Vestibular migraine H/O tooth extraction COPD (chronic obstructive pulmonary disease) (Chronic) HTN (hypertension) (Chronic) Dyslipidemia (Chronic) Asthma (Chronic) Atrial flutter (Chronic) CAD (coronary artery disease) (Chronic) Lumbago (Chronic) Vitamin D deficiency (Chronic) Systemic lupus erythematosus (Chronic) Solitary pulmonary nodule (Chronic) Restrictive lung disease (Chronic) Psoriasis (Chronic) Osteopenia (Chronic) skilled nursing current use of systemic steroids (Chronic) Generalized osteoarthritis of multiple sites (Chronic) Fatty liver, alcoholic (Chronic) stopped alcohol use 01/2018 Aortic stenosis (Chronic) On anticoagulant therapy plavix and eliquis daily GERD (gastroesophageal reflux disease) Degenerative cervical disc Rotator cuff impingement syndrome Allergic rhinitis Elevated PSA Psoriatic arthritis Vision changes Encounter for pre-operative examination History of colon polyps Bilateral carpal tunnel syndrome Current use of proton pump inhibitor Neuropathy Carpal tunnel syndrome, left upper limb Sensory polyneuropathy Left wrist pain Medical History History of macular degeneration no injections, just OTC meds Peripheral arterial disease Paroxysmal atrial flutter follows with [facility], on Eliquis and clopidogrel CAD (coronary artery disease) s/p 1 TATUM to mid LAD 12/2017, "moderate residual OM1 disease, SEVERE distal RCA/PDA"; follows with [facility]-Dr. Silva Nausea and vomiting after administration of anesthetic agent Spinal stenosis Degenerative disc disease Chronic back pain Chronic hoarseness Systemic lupus erythematosus on chronic steroids, follows with rheumatology Chronic steroid use since age 14--d/t lupus Hearing deficit bilat. hearing aids "for TV only" Ocular migraine hx Hypertension Hyperlipidemia Tachycardia hx of Chronic obstructive pulmonary disease inhaler Asthma inhaler daily/prn Nephrolithiasis Tubular adenoma of colon Myocardial infarct 02/2018 during heart cath @ [facility] Dr. Silva Surgical History H/O removal of neck cyst Hx of decompression of ulnar nerve lt elbow History of carpal tunnel release rt. History of esophagogastroduodenoscopy (EGD) History of transcatheter aortic valve replacement (TAVR) (~04/2021) @ [facility] [place]--follows with Dr. Silva History of surgery on right wrist fx repair--no hardware History of elbow surgery right I&D History of total left hip replacement History of total right hip replacement History of colonoscopy with polypectomy History of wisdom tooth extraction History of tonsillectomy Hx of cholecystectomy History of repair of anterior cruciate ligament of right knee History of repair of anterior cruciate ligament of left knee x2 Hx of cardiac catheterization 02/14/21 @ [facility] (no stents--recommended for TAVR) 02/2018 with 1 stent placed SLAP (superior labrum from anterior to posterior) tear right shoulder Family History Father Skin cancer of face Cancer Other No family history of adverse response to anesthesia Right-sided epistaxis Denies family history of Colon cancer Ovarian cancer Prostate cancer Myocardial infarction Breast cancer Social History Smoking Status: Former smoker Tobacco Type: Cigarettes Second Hand Exposure: Yes; Do You Dip or Chew Tobacco: No; Hx Alcohol Use: No Hx Substance Use: No Preferred Language: Cameroonian Communication Ability: Effective Visual Impairment: No Limitations Hearing Ability: Use of Hearing Aid Mud Jack Operator Required: No Beliefs That Will Affect Care: None marital status: Current Living Situation: Spouse current occupational status: retired current occupation: retired teacher Feels Safe at Home: Yes Childhood Exposure to Second-Hand Smoke: Yes Dental Care, Regularly: Yes Physical Activity Frequency: 5-6 Times per Week Seatbelt Use: always Sunscreen Use: Yes Assistive Devices: None Physical Exam Vital Signs Vital Signs - 24 hr 05/06/24 09:09 05/06/24 11:00 05/06/24 12:44 Temperature 36.8 C 36.6 C Temperature Source Temporal Artery Scan Oral Pulse Rate 73 Pulse Rate [Finger] 63 86 Pulse Rhythm [Finger] Pulse Strength [Finger] Respiratory Rate 20 16 18 Respiratory Effort / Characteristics Non-Labored Spontaneous Non-Labored Spontaneous Non-Labored Spontaneous Respiratory Depth Normal Normal Normal Respiratory Pattern Regular Regular Blood Pressure 149/86 H Blood Pressure [Right Arm] 148/73 H 157/73 H Blood Pressure Mean 107 Blood Pressure Mean [Right Arm] 98 101 Blood Pressure Position [Right Arm] Semi-fowlers Pulse Oximetry 97 97 97 Oxygen Delivery Method Room Air Room Air Room Air Sepsis Recent Fever Within 48 Hours No Sepsis New/Unexplained Change in Mental Status No Sepsis Action Taken by Nursing No Action Required 05/06/24 13:59 05/06/24 15:49 05/06/24 16:47 Temperature 37.4 C Temperature Source Oral Pulse Rate Pulse Rate [Finger] 77 68 89 Pulse Rhythm [Finger] Regular Pulse Strength [Finger] Normal Respiratory Rate 16 16 18 Respiratory Effort / Characteristics Non-Labored Spontaneous Non-Labored Non-Labored Spontaneous Respiratory Depth Normal Normal Normal Respiratory Pattern Regular Regular Blood Pressure Blood Pressure [Right Arm] 143/68 H 156/71 H 176/87 H Blood Pressure Mean Blood Pressure Mean [Right Arm] 93 99 116 Blood Pressure Position [Right Arm] Semi-fowlers Sitting Pulse Oximetry 98 98 97 Oxygen Delivery Method Room Air Room Air Room Air Sepsis Recent Fever Within 48 Hours Sepsis New/Unexplained Change in Mental Status Sepsis Action Taken by Nursing CONSTITUTIONAL: Healthy and well nourished. Patient appears in mild to moderate distress, and appears weak. HEENT: Examination of the right nostril rapid Rhino does show a decrease in cuff pressure when compared to his discharge yesterday. Patient has minimal bleeding from the left nostril. Otoscope exam does not show any focal areas of bleeding. No posterior pharyngeal clots or significant postnasal bleeding noted. RESPIRATORY: Clear to auscultation bilaterally with no wheezing, crackles, rhonchi or stridor. CARDIOVASCULAR: Regular rate and rhythm with no murmurs, rubs or gallops. GASTROINTESTINAL: Bowel sounds present in all quadrants. Soft and nontender to palpation. MUSCULOSKELETAL: Full range of motion of all joints without discomfort. INTEGUMENTARY: No rash or other significant dermatologic conditions noted. HEMATOLOGIC: No ecchymosis or petechiae. PSYCHIATRIC: Positive affect. NEUROLOGIC: No focal neurologic deficits noted. Course Course Patient history and physical exam were performed. Nurses notes were reviewed. I did reinflate the cuff again with another 5 cc of air, and to patient discomfort. This did successfully stop the bleeding. I did recommend checking his H&H level at this point, the patient was in agreement. IV access was established, and labs were drawn. Patient was administered a normal saline 500 cc bolus, along with IV Zofran and Pepcid. Ctbad-di-upgz hemoglobin was performed and was normal, with final resulting CBC and CMP showing no concerning findings. At this point, I did reach out to Dr. Grigsby via [place] text. There was a delay in response, and he eventually arrived in the emergency department to evaluate the patient. Dr. Grigsby plans to take the patient to the OR for further management. As an add-on procedure, the patient was in the emergency department for several hours, again not having any recurrent bleeding with frequent rechecks. See Dr. Grigsby's dictation for further treatment and final disposition. Administered Medications Discontinued Medications Amlodipine Besylate (Amlodipine Besylate 5 Mg Tab) [facility] Stop: 06/06/24 08:59 Last Admin: 05/07/24 08:26 Dose: 5 mg Documented By: TMP Artificial Tears (Artificial Tears) 1 drops OP BID [facility]; Protocol Stop: 06/05/24 20:59 Last Admin: 05/07/24 08:27 Dose: Not Given Documented By: Admin: 05/06/24 21:05 Dose: Not Given Documented By: MAC Atorvastatin Calcium (Atorvastatin 40 Mg Tab) 80 mg PO [facility] Stop: 06/05/24 20:59 Last Admin: 05/06/24 21:08 Dose: 80 mg Documented By: SHARIF Calcium/Vitamin D (Calcium 600mg + Vit D 400 Iu Tab) 1 tab PO [facility] Stop: 06/05/24 20:59 Last Admin: 05/06/24 21:08 Dose: 1 tab Documented By: SHARIF Epinephrine HCl (Epinephrine Hcl Inj 10 Mg/10 Ml Vial) Confirm Administered Dose 1 mg .ROUTE .STK-MED ONE Stop: 05/06/24 15:28 Last Admin: 05/06/24 17:32 Dose: 1 mg Documented By: [id number] Fluticasone/Vilanterol (Fluticasone/Vilanterol 200/25mcg 14 Puffs/Inhaler) 1 puffs INH DAILY [facility]; Protocol Stop: 06/06/24 08:59 Last Admin: 05/07/24 08:27 Dose: 1 puffs Documented By: TMP Gabapentin (Gabapentin 100 Mg Cap) 100 mg PO HS [facility] Stop: 06/05/24 20:59 Last Admin: 05/06/24 21:07 Dose: 100 mg Documented By: MAC Gelatin (Gelatin Sponge Sz 100) Confirm Administered Dose 1 each .ROUTE .STK-MED ONE Stop: 05/06/24 15:28 Last Admin: 05/06/24 17:32 Dose: 1 each Documented By: [id number] Famotidine (Pepcid 20mg Iv Push) 20 mg in 5 mls @ 2.5 mls/min IV NOW STA Stop: 05/06/24 09:28 Last Admin: 05/06/24 09:36 Dose: 2.5 mls/min Documented By: TONJA Sodium Chloride (Nss) 500 mls @ 999 mls/hr IV .Q31M ONE Stop: 05/06/24 09:57 Last Infusion: 05/06/24 10:42 Dose: Infused Documented By: Admin: 05/06/24 09:36 Dose: 999 mls/hr Documented By: TONJA Loratadine (Loratadine 10 Mg Tab) 10 mg PO DAILY [facility] Stop: 06/06/24 08:59 Last Admin: 05/07/24 08:26 Dose: 10 mg Documented By: MICA Miscellaneous (Fluorouracil ~ Order Awaiting Action) 1 each N/A QS [facility] Stop: 06/06/24 00:00 Last Admin: 05/07/24 07:36 Dose: Not Given Documented By: Admin: 05/07/24 01:40 Dose: Not Given Documented By: SHARIF Multivitamins (Multivitamin Tab) 1 tab PO DAILY [facility] Stop: 06/06/24 08:59 Last Admin: 05/07/24 08:26 Dose: 1 tab Documented By: MICA Mupirocin (Mupirocin 2% Oint 22 Gm Tube) Confirm Administered Dose 66 appln .ROUTE .STK-MED ONE Stop: 05/06/24 15:28 Last Admin: 05/06/24 17:48 Dose: Not Given Documented By: BELen Neomycin/Polymyxin/Bacitracin (Neomycin/Polymyx/Bacitr Oint 15 Gm Tube) 1 appln TOP BID [facility] Stop: 06/05/24 20:59 Last Admin: 05/07/24 08:27 Dose: 1 appln Documented By: Admin: 05/06/24 21:09 Dose: Not Given Documented By: SHARIF Ondansetron HCl (Ondansetron Inj 2 Mg/Ml 2 Ml Vial) 4 mg IV NOW STA Stop: 05/06/24 09:28 Last Admin: 05/06/24 09:35 Dose: 4 mg Documented By: TONJA Pantoprazole Sodium (Pantoprazole 40 Mg Tab) 40 mg PO QAM [facility] Stop: 06/06/24 08:59 Last Admin: 05/07/24 08:26 Dose: 40 mg Documented By: TMP Prednisone (Prednisone 1 Mg Tab) 2 mg PO QAM [facility] Stop: 06/06/24 08:59 Last Admin: 05/07/24 08:25 Dose: 2 mg Documented By: TMP Triamterene/Hydrochlorothiazide (Triamterene/Hctz 37.5/25mg Tab) 1 tab PO DAILY [facility] Stop: 06/06/24 08:59 Last Admin: 05/07/24 08:25 Dose: 1 tab Documented By: TMP Verapamil HCl (Verapamil Hcl 40 Mg Tab) 80 mg PO BID [facility] Stop: 06/05/24 20:59 Last Admin: 05/07/24 08:25 Dose: 80 mg Documented By: Admin: 05/06/24 21:09 Dose: 80 mg Documented By: SHARIF Medical Decision Making Medical Records Attestation: I reviewed the patient's medical records. Home Medications was personally reviewed by me Laboratory Data Attestation: I reviewed the patient's lab results. 05/07/24 05:26 05/07/24 05:26 Lab Results 05/06/24 05/06/24 Range/Units 09:28 09:32 WBC 9.92 (4.8-10.8) K/ul RBC 4.42 L (4.70-6.10) M/uL Hgb 11.2 L (14.0-18.0) g/dl POC Hgb 12.2 L (14.0-18.0) g/dl Hct 36.0 L (42.0-52.0) % POC Hct 36 L (42-52) % MCV 81.4 (80.0-100.0) fL MCH 25.3 (25.0-34.0) pg MCHC 31.1 L (32.0-36.0) g/dL RDW Std Deviation 44.8 (36.4-46.3) fL RDW Coeff of Bette 15.1 H (11.5-14.5) % Plt Count 188 (130-400) K/uL MPV 9.7 (9.4-12.4) fL Immature Gran % (Auto) 0.3 % Neut % (Auto) 81.4 % Lymph % (Auto) 10.5 % Sharkey % (Auto) 6.9 % Eos % (Auto) 0.6 % Baso % (Auto) 0.3 % Neut # (Auto) 8.08 H (1.40-6.50) K/uL Lymph # (Auto) 1.04 L (1.20-3.40) K/uL Sharkey # (Auto) 0.68 H (0.11-0.59) K/uL Eos # (Auto) 0.06 (0.00-0.50) K/uL Baso # (Auto) 0.03 (0.00-0.20) K/uL Immature Gran # (Auto) 0.03 (0.01-0.20) K/uL POC Sodium 136 (135-144) mmol/L Sodium 135 L (136-145) mmol/L POC Potassium 3.6 (3.3-5.0) mmol/L Potassium 3.7 (3.5-5.1) mmol/L POC Chloride 97 L (101-112) mmol/L Chloride 99 (98-107) mmol/L Carbon Dioxide 30 (21-32) mmol/L POC Total CO2 27 (24-31) mmol/L Anion Gap 6 (3-11) POC Anion Gap 16.0 (16-25) mmol/L POC BUN 11 (7-18) mg/dl BUN 12 (6-23) mg/dl Creatinine 0.66 (0.6-1.4) mg/dl POC Creatinine 0.7 (0.6-1.3) mg/dl Est Cr Clr Drug Dosing 103.4 ml/min eGFR 97.21 BUN/Creatinine Ratio 18.2 (10-20) Glucose 122 H (70-99(Fasting)) mg/dl POC Glucose (other) 122 H (70-99) mg/dl Calcium 9.4 (8.6-10.3) mg/dl POC Ioniz Calcium Ronaldo 1.20 (1.12-1.32) mmol/l Total Bilirubin 0.8 (0.2-1.0) mg/dl AST 35 (13-39) U/L ALT 17 (7-52) U/L Alkaline Phosphatase 79 (34-104) U/L Total Protein 7.0 (6.0-8.3) gm/dl Albumin 4.3 (3.4-5.0) gm/dl Globulin 2.7 (2.5-4.0) gm/dl Albumin/Globulin Ratio 1.6 (0.9-2) MDM Narrative See ED Course section for further details of today's visit. The patient returns to the emergency department yet again for recurrent epistaxis. The patient has now had 6 interventions for his current epistaxis, including ENT cauterization 4 days ago. I did see the patient yesterday on his ED visit, and inserted a 7.5 cm rapid Rhino rocket with notable inflation with good hemostasis. Unfortunately, he returns today, and it appears that the cuff is not as tense as what it was yesterday. An additional amount of air was injected into the balloon with good hemostasis. The case was further discussed with Dr. Grigsby, who saw the patient this past Sunday for cauterization. Dr. Grigsby did come to the emergency department for further evaluation, and plans to take the patient to the OR for further management. There was a delay until the patient was transferred to the OR, however did not have any further bleeding or other concerns while in the emergency department. Impression Right-sided epistaxis Discharge Plan Visit Data Chief Complaint: Nose Bleed (Major) Stated Complaint: NOSE BLEEDING ED Provider: Luke Florez ED Midlevel Provider: Jeremiah Nguyen Discharge Problem: Right-sided epistaxis Patient Disposition: Home - Self-Care Discharge Instructions Interventions: ED Discharge Assessment Last Done: 05/06/24 16:36 Addendum May 08, 2024 15:47 HPI: The patient is a 78-year-old gentleman with a past medical history of atrial fibrillation on Eliquis, CAD on Plavix who presents to the emergency department for evaluation of nausea and vomiting in the setting of having ongoing recurrent epistaxis. The patient has had recurrent nose bleeding over the past week where he was seen in the emergency department last week and ENT and had cauterization with silver nitrate performed. The patient had discontinued his Eliquis but resumed that after his cauterization and bleeding recurred and then was seen in this emergency department twice yesterday and had a rapid Rhino placed. The patient has been holding his Eliquis since yesterday. The patient reports when he woke up this morning and went to the bathroom and was nauseated he had vomited and then began to have new bleeding from the left nostril. A/P: Right nare rapid Rhino appears to have lost some air and so additional air placed in per JERROD Patrick 7.5cm rapid Rhino. Lab work was obtained. WBC within normal limits. H/H similar to prior. Platelets within normal limits. Chemistry without metabolic acidosis. LFTs are unremarkable. The patient was assessed by ENT Dr. Grigsby and was admitted to the OR for further management. I was consulted by the Advanced Practice Provider and was substantively involved in the patient's visit.This includes aspects of the HPI, MDM, diagnostic interpretations, and disposition/plan. I discussed the case with the JERROD and agree with the findings and plan as documented in JERROD Patrick's note.
[2024-05-06 09:55] LABS: iSTAT Creatinine 0.7 mg/dl (0.6-1.3); iSTAT Hemoglobin 12.2 g/dl (14.0-18.0); iSTAT Ionized Calcium 1.2 mmol/l (1.12-1.32); iSTAT Potassium 3.6 mmol/L (3.3-5.0)
[2024-05-06 09:58] LABS: Basophils # (auto) 0.03 K/uL (0.00-0.20); Basophils % (auto) 0.3 %; Eosinophils # (auto) 0.06 K/uL (0.00-0.50); Eosinophils % (auto) 0.6 %; Hemoglobin 11.2 g/dl (14.0-18.0); Immature Granulocytes # (auto) 0.03 K/uL (0.01-0.20); Immature Granulocytes % (auto) 0.3 %; Lymphocytes # (auto) 1.04 K/uL (1.20-3.40); Lymphocytes % (auto) 10.5 %; Mean Corpuscular Hemoglobin 25.3 pg (25.0-34.0); Mean Corpuscular Hgb Conc 31.1 g/dL (32.0-36.0); Mean Corpuscular Volume 81.4 fL (80.0-100.0); Mean Platelet Volume 9.7 fL (9.4-12.4); Monocytes # (auto) 0.68 K/uL (0.11-0.59); Monocytes % (auto) 6.9 %; Neutrophils # (auto) 8.08 K/uL (1.40-6.50); Neutrophils % (auto) 81.4 %; Platelet Count 188 K/uL (130-400); RDW Coefficient of Variation 15.1 % (11.5-14.5); RDW Standard Deviation 44.8 fL (36.4-46.3); Red Blood Count 4.42 M/uL (4.70-6.10); White Blood Count 9.92 K/ul (4.8-10.8)
[2024-05-06 10:14] LABS: Albumin Globulin Ratio 1.6 (0.9-2); Albumin Level 4.3 gm/dl (3.4-5.0); BUN Creatinine Ratio 18.2 (10-20); Bilirubin,Total 0.8 mg/dl (0.2-1.0); Calcium 9.4 mg/dl (8.6-10.3); Creatinine Clr Calc Pharmacy 103.4 ml/min; Globulin 2.7 gm/dl (2.5-4.0); Potassium 3.7 mmol/L (3.5-5.1)
--- NOTE | 2024-05-06 12:37 | ENT Consultation ---
Date of Consultation May 06, 2024 Assessment & Plan (1) Right-sided epistaxis: Plan Patient has had recurrent epistaxis. I did cauterize her nose once in the office. He persistent having problems bleeding. Plan: I have outlined options to him. I have suggested that he go to the OR and under general anesthesia I can to cauterize the area better and if necessary either cauterized or clip the sphenopalatine artery to prevent further bleeding. History of Present Illness Reason for Consultation: Epistaxis Patient is a 78-year-old gentleman who presents with a history of recurrent epistaxis. He said his nose treated a number of times in the past. I saw him on Sunday i.e. 4 days ago and I cauterized his nose in the office on the right side of the time. He did well until Sunday and then started bleeding again. He has been admitted to the ER and has a packing in his nose. Allergies Allergy/AdvReac Type Severity Reaction Status Date / Time Penicillins Allergy Severe THROAT Verified 05/06/24 09:36 SWELLING Home Medications Medication Instructions Recorded Confirmed Type cyclosporine 0.05 % eye drops 1 drops ophthalmic (eye) BID 06/24/18 05/06/24 History (Restasis MultiDose) propylene glycol 0.6 % eye drops 1 drp ophthalmic (eye) QAM PRN Dry 06/24/18 05/06/24 History (Systane Balance) Eye(S) ustekinumab 45 mg/0.5 mL 90 mg subcut UD 06/10/19 05/06/24 History subcutaneous solution (Stelara) vitamins A,C,H-qude-enollz 4,296 2 cap PO QAM 07/24/19 05/06/24 History mcg-226 mg-90 mg capsule (PreserVision AREDS) calcium 600 mg (as 1 tab PO HS 09/23/21 05/06/24 History carbonate)-vitamin D3 5 mcg (200 unit) tablet loratadine 10 mg tablet (Claritin) 10 mg PO DAILY 09/11/22 05/06/24 History multivitamin (Daily Multi-Vitamin 1 tab PO DAILY 01/18/23 05/06/24 History tablet) prednisone 1 mg tablet 2 mg (2 x 1 mg) PO QAM #180 tabs 07/04/23 05/06/24 Rx amlodipine 5 mg tablet 5 mg PO QAM #90 tabs 10/11/23 05/06/24 Rx pantoprazole 40 mg tablet,delayed 40 mg PO QAM #90 tabs 10/11/23 05/06/24 Rx release (Protonix) apixaban 5 mg tablet (Eliquis) 5 mg PO BID #180 tabs 11/17/23 05/06/24 Rx albuterol sulfate 90 mcg/actuation 2 puff inhalation UD PRN shortness 02/04/24 05/06/24 Rx aerosol inhaler of breath or wheezing #6.7 grams triamterene 37.5 See Rx Instructions .Route 02/22/24 05/06/24 Rx mg-hydrochlorothiazide 25 mg .COMPLEX #90 caps capsule fluticasone 500 mcg-salmeterol 50 1 inh inhalation BID #60 ea 03/17/24 05/06/24 Rx mcg/dose blistr powdr for inhalation (Wixela Inhub) gabapentin 100 mg capsule 100 mg PO HS #30 caps 04/07/24 05/06/24 Rx atorvastatin 80 mg tablet (Lipitor) 80 mg PO HS #90 tabs 04/09/24 05/06/24 Rx verapamil 80 mg tablet 80 mg PO BID #180 tabs 04/09/24 05/06/24 Rx neomycin-bacitracn Zn-polymyx 3.5 1 applic topical BID #15 grams 05/02/24 05/06/24 Rx mg-400 unit-5,000 unit/gram top oint (Triple Antibiotic) cephalexin 500 mg capsule 500 mg PO TID 7 days #21 caps 05/05/24 05/06/24 Rx fluorouracil 5 % topical cream 1 applic topical BID 05/06/24 05/06/24 History Patient History Medical History History of macular degeneration no injections, just OTC meds Peripheral arterial disease Paroxysmal atrial flutter follows with [facility], on Eliquis and clopidogrel CAD (coronary artery disease) s/p 1 TATUM to mid LAD 12/2017, "moderate residual OM1 disease, SEVERE distal RCA/PDA"; follows with [facility]-Dr. Silva Nausea and vomiting after administration of anesthetic agent Spinal stenosis Degenerative disc disease Chronic back pain Chronic hoarseness Systemic lupus erythematosus on chronic steroids, follows with rheumatology Chronic steroid use since age 14--d/t lupus Hearing deficit bilat. hearing aids "for TV only" Ocular migraine hx Hypertension Hyperlipidemia Tachycardia hx of Chronic obstructive pulmonary disease inhaler Asthma inhaler daily/prn Nephrolithiasis Tubular adenoma of colon Myocardial infarct 02/2018 during heart cath @ [facility] Dr. Silva Surgical History H/O removal of neck cyst Hx of decompression of ulnar nerve lt elbow History of carpal tunnel release rt. History of esophagogastroduodenoscopy (EGD) History of transcatheter aortic valve replacement (TAVR) (~04/2021) @ [facility] [place]follows with Dr. Silva History of surgery on right wrist fx repair--no hardware History of elbow surgery right I&D History of total left hip replacement History of total right hip replacement History of colonoscopy with polypectomy History of wisdom tooth extraction History of tonsillectomy Hx of cholecystectomy History of repair of anterior cruciate ligament of right knee History of repair of anterior cruciate ligament of left knee x2 Hx of cardiac catheterization 02/14/21 @ [facility] (no stents--recommended for TAVR) 02/2018 with 1 stent placed SLAP (superior labrum from anterior to posterior) tear right shoulder Family History (Updated 05/06/24 @ 12:35 by Tab Grigsby MD) Father Skin cancer of face Cancer Other No family history of adverse response to anesthesia Right-sided epistaxis Denies family history of Colon cancer Ovarian cancer Prostate cancer Myocardial infarction Breast cancer Social History Smoking Status: Never smoker Tobacco Type: Cigarettes Second Hand Exposure: Yes; Do You Dip or Chew Tobacco: No; Hx Alcohol Use: No (quit 2017) Hx Substance Use: Yes Last Used Substance Other:: "not since college" Preferred Language: Hungarian Communication Ability: Effective Visual Impairment: No Limitations Hearing Ability: Use of Hearing Aid Certified Medical Technician Required: No Beliefs That Will Affect Care: None marital status: Current Living Situation: Spouse current occupational status: retired current occupation: retired teacher Feels Safe at Home: Yes Childhood Exposure to Second-Hand Smoke: Yes Dental Care, Regularly: Yes Physical Activity Frequency: 5-6 Times per Week Seatbelt Use: always Sunscreen Use: Yes Assistive Devices: Glasses and Hearing Aid - Bilateral Physical Exam Physical Exam: On examination shows the patient is alert and oriented in no distress. He has a packing in his nose on the right side. There is no bleeding at the present time. Results & Data Vital Signs (Past 12 Hours) Vital Signs Temp Pulse Pulse Resp BP BP Pulse Ox 05/06/24 11:00 63 16 148/73 H 97 05/06/24 09:09 36.8 C 73 20 149/86 H 97 O2 Del Method 05/06/24 11:00 Room Air 05/06/24 09:09 Room Air PG Care Time/CCT Total # of Minutes Spent Total Time Spent with Patient: Total time spent is greater than 50% in coordination of care (as documented) at patient's floor/unit and/or counseling patient: Coding [place] [address] IN/OBS CONSULT LVL 2,35M Patient Type Established History Problem Focused Exam Problem Focused Medical Decision Making Low Complexity Diagnoses Right-sided epistaxis R04.0
--- NOTE | 2024-05-06 13:19 | Anesthesiology Consultation ---
Date of Service May 06, 2024 Assessment & Plan (1) Encounter for pre-operative examination: Chart Review Chart Review: Acceptable Risk for Surgery and Patient NOT seen in Pre Admission Testing Consults Requested none History Surgery Operation Date: 05/06/24 07:00 Proposed Procedures p Right Nasal Cautery - Tab Grigsby MD Height/Weight Height: 5 ft 9 in Weight: 85.9 kg Allergies Allergy/AdvReac Type Severity Reaction Status Date / Time Penicillins Allergy Severe THROAT Verified 05/06/24 09:36 SWELLING Medications Home Medications Medication Instructions Recorded Confirmed Last Taken cyclosporine 0.05 % eye drops 1 drops ophthalmic (eye) BID 06/24/18 05/06/24 03/22/22 22:30 (Restasis MultiDose) propylene glycol 0.6 % eye drops 1 drp ophthalmic (eye) QAM PRN Dry 06/24/18 05/06/24 03/22/22 14:00 (Systane Balance) Eye(S) ustekinumab 45 mg/0.5 mL 90 mg subcut UD 06/10/19 05/06/24 03/18/22 10:00 subcutaneous solution (Stelara) vitamins A,C,J-ehpj-kkbpwg 4,296 2 cap PO QAM 07/24/19 05/06/24 03/22/22 07:15 mcg-226 mg-90 mg capsule (PreserVision AREDS) calcium 600 mg (as 1 tab PO HS 09/23/21 05/06/24 03/22/22 22:30 carbonate)-vitamin D3 5 mcg (200 unit) tablet loratadine 10 mg tablet (Claritin) 10 mg PO DAILY 09/11/22 05/06/24 Unknown multivitamin (Daily Multi-Vitamin 1 tab PO DAILY 01/18/23 05/06/24 Unknown tablet) prednisone 1 mg tablet 2 mg (2 x 1 mg) PO QAM #180 tabs 07/04/23 05/06/24 Unknown amlodipine 5 mg tablet 5 mg PO QAM #90 tabs 10/11/23 05/06/24 Unknown pantoprazole 40 mg tablet,delayed 40 mg PO QAM #90 tabs 10/11/23 05/06/24 Unknown release (Protonix) apixaban 5 mg tablet (Eliquis) 5 mg PO BID #180 tabs 11/17/23 05/06/24 Unknown albuterol sulfate 90 mcg/actuation 2 puff inhalation UD PRN shortness 02/04/24 05/06/24 Unknown aerosol inhaler of breath or wheezing #6.7 grams triamterene 37.5 See Rx Instructions .Route 02/22/24 05/06/24 Unknown mg-hydrochlorothiazide 25 mg .COMPLEX #90 caps capsule fluticasone 500 mcg-salmeterol 50 1 inh inhalation BID #60 ea 03/17/24 05/06/24 Unknown mcg/dose blistr powdr for inhalation (Wixela Inhub) gabapentin 100 mg capsule 100 mg PO HS #30 caps 04/07/24 05/06/24 Unknown atorvastatin 80 mg tablet (Lipitor) 80 mg PO HS #90 tabs 04/09/24 05/06/24 Unknown verapamil 80 mg tablet 80 mg PO BID #180 tabs 04/09/24 05/06/24 Unknown neomycin-bacitracn Zn-polymyx 3.5 1 applic topical BID #15 grams 05/02/24 05/06/24 Unknown mg-400 unit-5,000 unit/gram top oint (Triple Antibiotic) cephalexin 500 mg capsule 500 mg PO TID 7 days #21 caps 05/05/24 05/06/24 Unknown fluorouracil 5 % topical cream 1 applic topical BID 05/06/24 05/06/24 Unknown Past Medical History Medical History History of macular degeneration no injections, just OTC meds Peripheral arterial disease Paroxysmal atrial flutter follows with [facility], on Eliquis and clopidogrel CAD (coronary artery disease) s/p 1 TATUM to mid LAD 12/2017, "moderate residual OM1 disease, SEVERE distal RCA/PDA"; follows with [facility]-Dr. Silva Nausea and vomiting after administration of anesthetic agent Spinal stenosis Degenerative disc disease Chronic back pain Chronic hoarseness Systemic lupus erythematosus on chronic steroids, follows with rheumatology Chronic steroid use since age 14--d/t lupus Hearing deficit bilat. hearing aids "for TV only" Ocular migraine hx Hypertension Hyperlipidemia Tachycardia hx of Chronic obstructive pulmonary disease inhaler Asthma inhaler daily/prn Nephrolithiasis Tubular adenoma of colon Myocardial infarct 02/2018 during heart cath @ [facility] Dr. Silva Cardiology note 04/09/24: Assessment and Plan Assessment and Plan (1) CAD (coronary artery disease): (2) Paroxysmal atrial flutter: (3) Peripheral arterial disease: (4) Hypertension: (5) Hyperlipidemia: (6) History of transcatheter aortic valve replacement (TAVR): Orders: Orders CA echo transthoracic complete Today R06.02 - Shortness of breath, Z95.2 - Presence of prosthetic heart valve NM sabrina perf spect lexiscan Today I25.10 - Atherosclerotic heart disease of [place] coronary artery without angina pectoris, R06.02 - Shortness of breath NM sabrina perf SPECT rest & str Today I25.10 - Atherosclerotic heart disease of [place] coronary artery without angina pectoris, R06.02 - Shortness of breath Plan ASSESSMENT/PLAN: 1. Coronary artery disease post PCI TATUM proximal mid LAD 12/2017: Has moderate residual OM1 disease, severe distal RCA/PDA. Given exertional dyspnea, will plan to perform a nuclear stress test to further evaluate for ischemia. Continue current medical therapy, including Eliquis, atorvastatin, and CCB. 2. Paroxysmal atrial flutter: Initial episode 12/2017, self converted. Anticoagulation complicated by recurrent epistaxis, now on Eliquis alone. 3. Severe post TAVR 04/2021: Mild paravalvular leak with stable findings on most recent echo in September 2023. Repeat echo ordered given exertional shortness of breath. 4. Bradycardia: Will plan to reduce verapamil dose to 80 mg BID. 5. Exertional shortness of breath: Etiology unclear. Recent CXR was unremarkable. Will arrange a repeat echocardiogram and also plan an ischemic evaluation with a nuclear stress test. Given bradycardia, will also reduce his verapamil dose. Past Family History Family History Father Skin cancer of face Cancer Other No family history of adverse response to anesthesia Right-sided epistaxis Denies family history of Colon cancer Ovarian cancer Prostate cancer Myocardial infarction Breast cancer Past Surgical History Surgical History H/O removal of neck cyst Hx of decompression of ulnar nerve lt elbow History of carpal tunnel release rt. History of esophagogastroduodenoscopy (EGD) History of transcatheter aortic valve replacement (TAVR) (~04/2021) [place] [facility] [place] Dr. Silva History of surgery on right wrist fx repair--no hardware History of elbow surgery right I&D History of total left hip replacement History of total right hip replacement History of colonoscopy with polypectomy History of wisdom tooth extraction History of tonsillectomy Hx of cholecystectomy History of repair of anterior cruciate ligament of right knee History of repair of anterior cruciate ligament of left knee x2 Hx of cardiac catheterization 02/14/21 @ [facility] (no stents--recommended for TAVR) 02/2018 with 1 stent placed SLAP (superior labrum from anterior to posterior) tear right shoulder Social History Smoking Status: Never smoker Do You Dip or Chew Tobacco: No Hx Alcohol Use: No (quit 2017) Hx Substance Use: Yes substance use type: former substance user and marijuana Last Used Substance Other:: "not since college" Physical Exam Vital Signs Last Vital Signs Temp 36.6 C 05/06/24 12:44 Pulse 86 05/06/24 12:44 Resp 18 05/06/24 12:44 BP 157/73 H 05/06/24 12:44 Pulse Ox 97 05/06/24 12:44 O2 Del Method Room Air 05/06/24 12:44 Testing Laboratory Results 05/06/24 09:28 05/06/24 09:28 05/06/24 09:32 POC Glucose (other) 122 H Electrocardiogram Date: 04/07/24 HR 57. Unusual P axis, possible ectopic atrial bradycardia. Echocardiogram Date: 04/09/24 Normal LV size. Moderate concentric LVH. LVEF 55-60%. No RWMA. Borderline dilated RV with normal function. Well-seated transcatheter aortic valve. Normal transvalvular gradients. Moderate paravalvular aortic regurgitation. Mild MR. Normal estimate PA and RA pressures.
[2024-05-06] MEDS ORDERED: ROCURONIUM BROMIDE 10 MG/ML 5 ML VIAL IV ONE (15:10)
[2024-05-06] MEDS ORDERED: ONDANSETRON INJ 2 MG/ML 2 ML VIAL ONE (15:10)
[2024-05-06] MEDS ORDERED: LIDOCAINE 2% 2 ML VIAL/AMP(20MG/ML) INFIL ONE (15:10)
[2024-05-06] MEDS ORDERED: fentaNYL citrate PF 100 MCG/2 ML VIAL ONE (15:10)
[2024-05-06] MEDS ORDERED: PROPOFOL IV EMULSION 10 MG/ML 20 ML VIAL IV ONE (15:10)
[2024-05-06] MEDS ORDERED: HYDROCORTISONE SOD SUCCINATE 100 MG/2 ML VIAL ONE (15:16)
[2024-05-06] MEDS ORDERED: SUCCINYLCHOLINE CHLORIDE 20 MG/ML 10 ML VIAL IV ONE (16:24)
[2024-05-06] MEDS ORDERED: fentaNYL citrate PF 100 MCG/2 ML VIAL IV PRN (16:52)
[2024-05-06] MEDS ORDERED: ONDANSETRON INJ 2 MG/ML 2 ML VIAL IV PRN (16:52)
[2024-05-06] MEDS ORDERED: ATROPINE SULFATE 0.1 MG/ML 10ML SYR IV PRN (16:52)
[2024-05-06] MEDS ORDERED: ePHEDrine sulfate 50 MG/ML AMP IV PRN (16:52)
[2024-05-06] MEDS ORDERED: DEXAMETHASONE SOD INJ 4 MG/ML VIAL ONE (17:15)
[2024-05-06] MEDS ORDERED: PHENYLEPHRINE 100MCG/ML 10ML SYR IV ONE (17:22)
[2024-05-06] MEDS: EPINEPHrine HCL INJ 10 MG/10 ML VIAL ONE (17:32)
[2024-05-06] MEDS: GELATIN SPONGE SZ 100 ONE (17:32)
[2024-05-06] MEDS ORDERED: diphenhydrAMINE 50 MG/ML VIAL ONE (17:40)
[2024-05-06] MEDS ORDERED: NEOSTIGMINE METHYLSULFATE 1 MG/ML 10ML VIAL ONE (17:44)
[2024-05-06] MEDS ORDERED: GLYCOPYRROLATE 0.2 MG/ML VIAL ONE (17:44)
[2024-05-06] MEDS: MUPIROCIN 2% OINT 22 GM TUBE ONE (17:48)
--- NOTE | 2024-05-06 18:18 | Post Operative Brief Note ---
PG Immediate Post Op with CF Date of Surgery May 06, 2024 Pre & Post Diagnosis Operation Date: 05/06/24 07:00 Pre-Op Diagnosis: 1. Right-sided epistaxis Post-Op Diagnosis: 1. Right-sided epistaxis I identified the patient and participated in the time-out.: Yes Procedure Operation Date: 05/06/24 07:00 Actual Procedures p Right Nasal Cautery(Right) - Tab Grigsby MD Surgeon Tab Grigsby MD Field Staff none Estimated Blood Loss 5 Findings Consistent with Post-Op Diagnosis mucosa right side friable Specimens Specimen Description: no specimen per surgeon
--- NOTE | 2024-05-06 18:20 | Operative Report ---
PG Post Operative Report Pre & Post Diagnosis Operation Date: 05/06/24 07:00 Pre-Op Diagnosis: 1. Right-sided epistaxis Post-Op Diagnosis: 1. Right-sided epistaxis I identified the patient and participated in the time-out.: Yes Procedure Operation Date: 05/06/24 07:00 Actual Procedures p Right Nasal Cautery(Right) - Tab Grigsby MD Surgeon Tab Grigsby MD Hospitality Coordinator none Estimated Blood Loss 5 Findings Consistent with Post-Op Diagnosis Specimens none Description of Procedure Right endoscopic nasal cautery Under general anesthesia with the patient intubated Pledgets of adrenalin 1: 1000 Using endoscopy I examined the nasal mucosa. There were friable areas which I cauterized with the suction cautery from the mid point of the septum on the right to the areas posteriorlyover to the posterior lateral nasal wall around the medial insertion of the middle turbinate. Tolerated well Minimal blood loss. I put a gelfoam gauze pledget in the ride side of the nose I attest to the content of the Intraoperative Record and any orders documented therein. Any exceptions are noted below.
[2024-05-06] MEDS ORDERED: ACETAMINOPHEN 325 MG TAB PO PRN (18:23)
--- NOTE | 2024-05-06 18:29 | Anesthesiology Progress Note ---
Date of Service May 06, 2024 Anesthesia Post Procedure Vital Signs Vital Signs: Temp Pulse Pulse Pulse Resp BP BP 05/06/24 18:20 70 17 154/76 H 05/06/24 18:10 69 18 162/76 H 05/06/24 18:02 36.1 C L 69 22 155/74 H 05/06/24 16:47 37.4 C 89 18 176/87 H 05/06/24 15:49 68 16 156/71 H 05/06/24 13:59 77 16 143/68 H 05/06/24 12:44 36.6 C 86 18 157/73 H 05/06/24 11:00 63 16 148/73 H 05/06/24 09:09 36.8 C 73 20 149/86 H Pulse Ox O2 Del Method O2 Flow Rate 05/06/24 18:20 99 Oxymask 2 05/06/24 18:10 100 Oxymask 5 05/06/24 18:02 100 Oxymask 5 05/06/24 16:47 97 Room Air 05/06/24 15:49 98 Room Air 05/06/24 13:59 98 Room Air 05/06/24 12:44 97 Room Air 05/06/24 11:00 97 Room Air 05/06/24 09:09 97 Room Air Transfer of Care Handoff Completed per policy Notes Mental Status: alert / awake / arousable Patient Amnestic to Procedure: Yes Nausea / Vomiting: adequately controlled Pain: adequately controlled Airway Patency, RR, SpO2: stable & adequate BP & HR: stable & adequate Hydration State: stable & adequate Anesthetic Complications: no major complications apparent and Pt Satisfied with anesthetic care
--- NOTE | 2024-05-06 18:50 | History & Physical Report ---
Date of Service May 06, 2024 History of Present Illness Primary Care Provider: Walt Caro MD Zach is a 78-year-old male with a past medical history of CAD, TAVR, COPD who presented with recurrent epistaxis Epistaxis ENT consulted, following. Hemoglobin 11.2, last 10.2 S/p right nasal cautery with ENT 05/06/2024 Eliquis held Trend hemoglobin CAD paroxysmal a flutter on Eliquis, TAVR, hypertension History of PCI with TATUM to proximal-mid LAD 2017 History of TAVR 2020 for severe Paroxysmal A-fib on Eliquis currently held due to epistaxis Last ECHO EF 60-65%, TAVR valve well-seated Amlodipine, hydrochlorothiazide, triamterene, verapamil continued Atorvastatin continued Renal function is at baseline COPD/asthma overlap Continue Advair twice daily Albuterol as needed SLE Follows with rheumatology/Dr. Patino Continue chronic prednisone 2 mg daily History of polyneuropathy Continue rapid [place], no acute change in patient Allergies Allergy/AdvReac Type Severity Reaction Status Date / Time Penicillins Allergy Severe THROAT Verified 05/06/24 16:51 SWELLING Home Medications Medication Instructions Recorded Confirmed Type cyclosporine 0.05 % eye drops 1 drops ophthalmic (eye) BID 06/24/18 05/06/24 History (Restasis MultiDose) propylene glycol 0.6 % eye drops 1 drp ophthalmic (eye) QAM PRN Dry 06/24/18 05/06/24 History (Systane Balance) Eye(S) ustekinumab 45 mg/0.5 mL 90 mg subcut UD 06/10/19 05/06/24 History subcutaneous solution (Stelara) vitamins A,C,M-fbwz-tldror 4,296 2 cap PO QAM 07/24/19 05/06/24 History mcg-226 mg-90 mg capsule (PreserVision AREDS) calcium 600 mg (as 1 tab PO HS 09/23/21 05/06/24 History carbonate)-vitamin D3 5 mcg (200 unit) tablet loratadine 10 mg tablet (Claritin) 10 mg PO DAILY 09/11/22 05/06/24 History multivitamin (Daily Multi-Vitamin 1 tab PO DAILY 01/18/23 05/06/24 History tablet) prednisone 1 mg tablet 2 mg (2 x 1 mg) PO QAM #180 tabs 07/04/23 05/06/24 Rx amlodipine 5 mg tablet 5 mg PO QAM #90 tabs 10/11/23 05/06/24 Rx pantoprazole 40 mg tablet,delayed 40 mg PO QAM #90 tabs 10/11/23 05/06/24 Rx release (Protonix) apixaban 5 mg tablet (Eliquis) 5 mg PO BID #180 tabs 11/17/23 05/06/24 Rx albuterol sulfate 90 mcg/actuation 2 puff inhalation UD PRN shortness 02/04/24 05/06/24 Rx aerosol inhaler of breath or wheezing #6.7 grams triamterene 37.5 See Rx Instructions .Route 02/22/24 05/06/24 Rx mg-hydrochlorothiazide 25 mg .COMPLEX #90 caps capsule fluticasone 500 mcg-salmeterol 50 1 inh inhalation BID #60 ea 03/17/24 05/06/24 Rx mcg/dose blistr powdr for inhalation (Wixela Inhub) gabapentin 100 mg capsule 100 mg PO HS #30 caps 04/07/24 05/06/24 Rx atorvastatin 80 mg tablet (Lipitor) 80 mg PO HS #90 tabs 04/09/24 05/06/24 Rx verapamil 80 mg tablet 80 mg PO BID #180 tabs 04/09/24 05/06/24 Rx neomycin-bacitracn Zn-polymyx 3.5 1 applic topical BID #15 grams 05/02/24 05/06/24 Rx mg-400 unit-5,000 unit/gram top oint (Triple Antibiotic) cephalexin 500 mg capsule 500 mg PO TID 7 days #21 caps 05/05/24 05/06/24 Rx fluorouracil 5 % topical cream 1 applic topical BID 05/06/24 05/06/24 History Past Med/Surg History Problem List Right-sided epistaxis (Acute) Right-sided epistaxis (Acute) Anemia (Acute) Epistaxis (Acute) Epistaxis (Acute) Vestibular migraine H/O tooth extraction COPD (chronic obstructive pulmonary disease) (Chronic) HTN (hypertension) (Chronic) Dyslipidemia (Chronic) Asthma (Chronic) Atrial flutter (Chronic) CAD (coronary artery disease) (Chronic) Lumbago (Chronic) Vitamin D deficiency (Chronic) Systemic lupus erythematosus (Chronic) Solitary pulmonary nodule (Chronic) Restrictive lung disease (Chronic) Psoriasis (Chronic) Osteopenia (Chronic) 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) Generalized osteoarthritis of multiple sites (Chronic) Fatty liver, alcoholic (Chronic) stopped alcohol use 01/2018 Aortic stenosis (Chronic) On anticoagulant therapy plavix and eliquis daily GERD (gastroesophageal reflux disease) Degenerative cervical disc Rotator cuff impingement syndrome Allergic rhinitis Elevated PSA Psoriatic arthritis Vision changes Encounter for pre-operative examination History of colon polyps Bilateral carpal tunnel syndrome Current use of proton pump inhibitor Neuropathy Carpal tunnel syndrome, left upper limb Sensory polyneuropathy Left wrist pain Medical History History of macular degeneration no injections, just OTC meds Peripheral arterial disease Paroxysmal atrial flutter follows with [facility], on Eliquis and clopidogrel CAD (coronary artery disease) s/p 1 TATUM to mid LAD 12/2017, "moderate residual OM1 disease, SEVERE distal RCA/PDA"; follows with [facility]-Dr. Silva Nausea and vomiting after administration of anesthetic agent Spinal stenosis Degenerative disc disease Chronic back pain Chronic hoarseness Systemic lupus erythematosus on chronic steroids, follows with rheumatology Chronic steroid use since age 14--d/t lupus Hearing deficit bilat. hearing aids "for TV only" Ocular migraine hx Hypertension Hyperlipidemia Tachycardia hx of Chronic obstructive pulmonary disease inhaler Asthma inhaler daily/prn Nephrolithiasis Tubular adenoma of colon Myocardial infarct 02/2018 during heart cath @ [facility] Dr. Silva Surgical History H/O removal of neck cyst Hx of decompression of ulnar nerve lt elbow History of carpal tunnel release rt. History of esophagogastroduodenoscopy (EGD) [place] of transcatheter [place]) [place]04[place]2021[place] [facility] [place]. Silva History of surgery on right wrist fx repair--no hardware History of elbow surgery right I&D History of total left hip replacement History of total right hip replacement History of colonoscopy with polypectomy History of wisdom tooth extraction History of tonsillectomy Hx of cholecystectomy History of repair of anterior cruciate ligament of right knee History of repair of anterior cruciate ligament of left knee x2 Hx of cardiac catheterization 02/14/21 @ [facility] (no stents--recommended for TAVR) 02/2018 with 1 stent placed SLAP (superior labrum from anterior to posterior) tear right shoulder Family History Father Skin cancer of face Cancer Other No family history of adverse response to anesthesia Right-sided epistaxis Denies family history of Colon cancer Ovarian cancer Prostate cancer Myocardial infarction Breast cancer Social History Smoking Status: Never smoker Tobacco Type: Cigarettes Second Hand Exposure: Yes; Do You Dip or Chew Tobacco: No; Hx Alcohol Use: No (quit 2018) Hx Substance Use: Yes Last Used Substance Other:: "not since college" Preferred Language: [place] Communication Ability: Effective Visual Impairment: No Limitations Hearing Ability: Use of Hearing Aid Directory Assistance Operator Required: No Beliefs That Will Affect Care: None marital status: Current Living Situation: Spouse current occupational status: retired current occupation: retired teacher Feels Safe at Home: Yes Childhood Exposure to Second-Hand Smoke: Yes Dental Care, Regularly: Yes Physical Activity Frequency: 5-6 Times per Week Seatbelt Use: always Sunscreen Use: Yes Assistive Devices: Glasses and Hearing Aid - Bilateral Results & Data Results & Data Vital Signs (Past 12 Hours) Vital Signs Temp Pulse Pulse Pulse Resp BP BP 05/06/24 18:30 69 15 158/76 H 05/06/24 18:20 70 17 154/76 H 05/06/24 18:10 69 18 162/76 H 05/06/24 18:02 36.1 C L 69 22 155/74 H 05/06/24 16:47 37.4 C 89 18 176/87 H 05/06/24 15:49 68 16 156/71 H 05/06/24 13:59 77 16 143/68 H 05/06/24 12:44 36.6 C 86 18 157/73 H 05/06/24 11:00 63 16 148/73 H 05/06/24 09:09 36.8 C 73 20 149/86 H Pulse Ox O2 Del Method O2 Flow Rate 05/06/24 18:30 94 Room Air 05/06/24 18:20 99 Oxymask 2 05/06/24 18:10 100 Oxymask 5 05/06/24 18:02 100 Oxymask 5 05/06/24 16:47 97 Room Air 05/06/24 15:49 98 Room Air 05/06/24 13:59 98 Room Air 05/06/24 12:44 97 Room Air 05/06/24 11:00 97 Room Air 05/06/24 09:09 97 Room Air Code Status & VTE Plan VTE Prophylaxis Plan VTE Prophylaxis will be ordered: No Reason for no VTE drug order: Treatment not indicated PG Care Time/CCT Total # of Minutes Spent Total Time Spent with Patient: Total time spent is greater than 50% in coordination of care (as documented) at patient's floor/unit and/or counseling patient: Coding
--- NOTE | 2024-05-06 18:57 | Hospitalist Consultation ---
Date of Consultation May 06, 2024 Assessment & Plan (1) Right-sided epistaxis: Epistaxis ENT consulted, following. Hemoglobin 11.2, last 10.2 S/p right nasal cautery with ENT 05/06/2024 Eliquis held. If no bleeding x 24 hours can resume 05/07. Patient is not in A-fib on admit, slighlty irregular pulse due to PACs Trend hemoglobin (2) CAD (coronary artery disease): CAD paroxysmal a flutter on Eliquis, TAVR, hypertension History of PCI with TATUM to proximal-mid LAD 2017 History of TAVR 2020 for severe Paroxysmal A-fib on Eliquis currently held due to epistaxis Last ECHO EF 60-65%, TAVR valve well-seated Amlodipine, hydrochlorothiazide, triamterene, verapamil continued Atorvastatin continued Renal function is at baseline - Some PACs and hx of bradycardia. Will monitor on M/T overnight. (3) COPD (chronic obstructive pulmonary disease): COPD/asthma overlap Continue Advair twice daily Albuterol as needed No wheezing (4) Systemic lupus erythematosus: SLE Follows with rheumatology/Dr. Patnio Continue chronic prednisone 2 mg daily (5) Neuropathy: History of polyneuropathy Continue gabapentin, no acute change in patient (6) Psoriatic arthritis: Psoriasis May resume Stelara as outpatient, next dose is due next week Plan DVT PPx: Resume Eliquis 05/07 if no recurrent epistaxis and hgb stable. +SCDs CODE: Full Dispo: M/T Diet: HH History of Present Illness Attending Physician: Tab Grigsby MD History of Present Illness Zach is a 78-year-old male with a past medical history of CAD, TAVR, COPD who presented with recurrent epistaxis. We are consulted for medical management postoperatively. Presented for recurrent epistaxis. Reports he is on Eliquis for Afib. No recent chest pain or ches tpressure. Denies chest pain/pressure at bedside Denies lightheadedness/dizziness while in pacu Denies recent fever, chills, sweats, nausea, vomiting, cough, dyspnea. Denies abdominal pian Slightly groggy in PACU, but denies acute concerns Did not take AM medications today Hx Lupus on prednisone 2mg daily well controlled Psoriasis adequately controlled. Next stelera injection due next week. Denies current joint pain Denies tobacco/ETOH use PCN allergy --> throat swelling FULL CODE Allergies Allergy/AdvReac Type Severity Reaction Status Date / Time Penicillins Allergy Severe THROAT Verified 05/06/24 16:51 SWELLING Home Medications Medication Instructions Recorded Confirmed Type cyclosporine 0.05 % eye drops 1 drops ophthalmic (eye) BID 06/24/18 05/06/24 History (Restasis MultiDose) propylene glycol 0.6 % eye drops 1 drp ophthalmic (eye) QAM PRN Dry 06/24/18 05/06/24 History (Systane Balance) Eye(S) ustekinumab 45 mg/0.5 mL 90 mg subcut UD 06/10/19 05/06/24 History subcutaneous solution (Stelara) vitamins A,C,E-ixrd-kpdiir 4,296 2 cap PO QAM 07/24/19 05/06/24 History mcg-226 mg-90 mg capsule (PreserVision AREDS) calcium 600 mg (as 1 tab PO HS 09/23/21 05/06/24 History carbonate)-vitamin D3 5 mcg (200 unit) tablet loratadine 10 mg tablet (Claritin) 10 mg PO DAILY 09/11/22 05/06/24 History multivitamin (Daily Multi-Vitamin 1 tab PO DAILY 01/18/23 05/06/24 History tablet) prednisone 1 mg tablet 2 mg (2 x 1 mg) PO QAM #180 tabs 07/04/23 05/06/24 Rx amlodipine 5 mg tablet 5 mg PO QAM #90 tabs 10/11/23 05/06/24 Rx pantoprazole 40 mg tablet,delayed 40 mg PO QAM #90 tabs 10/11/23 05/06/24 Rx release (Protonix) apixaban 5 mg tablet (Eliquis) 5 mg PO BID #180 tabs 11/17/23 05/06/24 Rx albuterol sulfate 90 mcg/actuation 2 puff inhalation UD PRN shortness 02/04/24 05/06/24 Rx aerosol inhaler of breath or wheezing #6.7 grams triamterene 37.5 See Rx Instructions .Route 02/22/24 05/06/24 Rx mg-hydrochlorothiazide 25 mg .COMPLEX #90 caps capsule fluticasone 500 mcg-salmeterol 50 1 inh inhalation BID #60 ea 03/17/24 05/06/24 Rx mcg/dose blistr powdr for inhalation (Wixela Inhub) gabapentin 100 mg capsule 100 mg PO HS #30 caps 04/07/24 05/06/24 Rx atorvastatin 80 mg tablet (Lipitor) 80 mg PO HS #90 tabs 04/09/24 05/06/24 Rx verapamil 80 mg tablet 80 mg PO BID #180 tabs 04/09/24 05/06/24 Rx neomycin-bacitracn Zn-polymyx 3.5 1 applic topical BID #15 grams 05/02/24 05/06/24 Rx mg-400 unit-5,000 unit/gram top oint (Triple Antibiotic) cephalexin 500 mg capsule 500 mg PO TID 7 days #21 caps 05/05/24 05/06/24 Rx fluorouracil 5 % topical cream 1 applic topical BID 05/06/24 05/06/24 History Patient History Medical History History of macular degeneration no injections, just OTC meds Peripheral arterial disease Paroxysmal atrial flutter follows with [facility], on Eliquis and clopidogrel CAD (coronary artery disease) s/p 1 TATUM to mid LAD 12/2017, "moderate residual OM1 disease, SEVERE distal RCA/PDA"; follows with [facility]-Dr. Silva Nausea and vomiting after administration of anesthetic agent Spinal stenosis Degenerative disc disease Chronic back pain Chronic hoarseness Systemic lupus erythematosus on chronic steroids, follows with rheumatology Chronic steroid use since age 14--d/t lupus Hearing deficit bilat. hearing aids "for TV only" Ocular migraine hx Hypertension Hyperlipidemia Tachycardia hx of Chronic obstructive pulmonary disease inhaler Asthma inhaler daily/prn Nephrolithiasis Tubular adenoma of colon Myocardial infarct 02/2018 during heart cath @ [facility] Dr. Silva Surgical History H/O removal of neck cyst Hx of decompression of ulnar nerve lt elbow History of carpal tunnel release rt. History of esophagogastroduodenoscopy (EGD) History of transcatheter aortic valve replacement (TAVR) (~04/2021) [place] [facility] [place] Dr. Silva History of surgery on right wrist fx repair--no hardware History of elbow surgery right I&D History of total left hip replacement History of total right hip replacement History of colonoscopy with polypectomy History of wisdom tooth extraction History of tonsillectomy Hx of cholecystectomy History of repair of anterior cruciate ligament of right knee History of repair of anterior cruciate ligament of left knee x2 Hx of cardiac catheterization 02/14/21 @ [facility] (no stents--recommended for TAVR) 02/2018 with 1 stent placed SLAP (superior labrum from anterior to posterior) tear right shoulder Family History Father Skin cancer of face Cancer Other No family history of adverse response to anesthesia Right-sided epistaxis Denies family history of Colon cancer Ovarian cancer Prostate cancer Myocardial infarction Breast cancer Social History Smoking Status: Never smoker Tobacco Type: Cigarettes Second Hand Exposure: Yes; Do You Dip or Chew Tobacco: No; Hx Alcohol Use: No (quit 2017) Hx Substance Use: Yes Last Used Substance Other:: "not since college" Preferred Language: [place]i Communication Ability: Effective Visual Impairment: No Limitations Hearing Ability: Use of Hearing Aid Global Account Executive Required: No Beliefs That Will Affect Care: None marital status: Current Living Situation: Spouse current occupational status: retired current occupation: retired teacher Feels Safe at Home: Yes Childhood Exposure to Second-Hand Smoke: Yes Dental Care, Regularly: Yes Physical Activity Frequency: 5-6 Times per Week Seatbelt Use: always Sunscreen Use: Yes Assistive Devices: Glasses and Hearing Aid - Bilateral Physical Exam Physical Exam: General: A&Ox3. NAD. Cooperative. HEENT: Nasal dressing in place, no active bleeding. Vision/hearing grossly intact Pulm: CTAB A&P. -wheezes, -rales, -rhonchi. Symmetrical chest rise. No increased work of breathing. No respiratory distress. Cardiac: RRR, +soft sm. Radial pulses intact and symmetrical. Abdominal: Nontender, nondistended, soft. BS present. Results & Data Results & Data Vital Signs (Past 12 Hours) Vital Signs Temp Pulse Pulse Pulse Resp BP BP 05/06/24 18:45 75 13 147/75 H 05/06/24 18:30 69 15 158/76 H 05/06/24 18:20 70 17 154/76 H 05/06/24 18:10 69 18 162/76 H 05/06/24 18:02 36.1 C L 69 22 155/74 H 05/06/24 16:47 37.4 C 89 18 176/87 H 05/06/24 15:49 68 16 156/71 H 05/06/24 13:59 77 16 143/68 H 05/06/24 12:44 36.6 C 86 18 157/73 H 05/06/24 11:00 63 16 148/73 H 05/06/24 09:09 36.8 C 73 20 149/86 H Pulse Ox O2 Del Method O2 Flow Rate 05/06/24 18:45 94 Room Air 05/06/24 18:30 94 Room Air 05/06/24 18:20 99 Oxymask 2 05/06/24 18:10 100 Oxymask 5 05/06/24 18:02 100 Oxymask 5 05/06/24 16:47 97 Room Air 05/06/24 15:49 98 Room Air 05/06/24 13:59 98 Room Air 05/06/24 12:44 97 Room Air 05/06/24 11:00 97 Room Air 05/06/24 09:09 97 Room Air PG Care Time/CCT Total # of Minutes Spent Total Time Spent with Patient: Total time spent is greater than 50% in coordination of care (as documented) at patient's floor/unit and/or counseling patient: Coding Level of Care Code 26296 IN/OBS CONSULT LVL 4,60M Diagnoses Right-sided epistaxis R04.0 CAD (coronary artery disease) I25.10 COPD (chronic obstructive pulmonary disease) J44.9 Systemic lupus erythematosus, unspecified SLE type, unspecified organ involvement status M32.9 Systemic lupus erythematosus type: unspecified Systemic lupus erythematosus organ involvement: unspecified Neuropathy G62.9 Psoriatic arthritis L40.50 (4) Systemic lupus erythematosus Systemic lupus erythematosus type: unspecified Systemic lupus erythematosus organ involvement: unspecified Qualified Code(s): M32.9 - Systemic lupus erythematosus, unspecified
[2024-05-06] MEDS ORDERED: PROPYLENE GLYCOL 0.6% OP PRN (19:48)
[2024-05-06] MEDS ORDERED: ALBUTEROL HFA 8 GM INHALER INH PRN (19:48)
[2024-05-06] MEDS: ARTIFICIAL TEARS OP SCH (21:05)
[2024-05-06] MEDS: GABAPENTIN 100 MG CAP PO SCH (21:07)
[2024-05-06] MEDS: CALCIUM 600MG + VIT D 400 IU TAB PO SCH (21:08)
[2024-05-06] MEDS: ATORVASTATIN 40 MG TAB PO SCH (21:08)
[2024-05-06] MEDS: NEOMYCIN/POLYMYX/BACITR OINT 15 GM TUBE TOP SCH (21:09)
[2024-05-06] MEDS: VERAPAMIL HCL 40 MG TAB PO SCH (21:09)
[2024-05-07 05:54] LABS: Hematocrit (blood only) 32.1 % (42.0-52.0); Hemoglobin 10.3 g/dl (14.0-18.0); Mean Corpuscular Hemoglobin 25.5 pg (25.0-34.0); Mean Corpuscular Hgb Conc 32.1 g/dL (32.0-36.0); Mean Corpuscular Volume 79.5 fL (80.0-100.0); Mean Platelet Volume 10.5 fL (9.4-12.4); Platelet Count 157 K/uL (130-400); RDW Coefficient of Variation 14.7 % (11.5-14.5); RDW Standard Deviation 42.7 fL (36.4-46.3); Red Blood Count 4.04 M/uL (4.70-6.10); White Blood Count 6.29 K/ul (4.8-10.8)
[2024-05-07 06:01] LABS: BUN Creatinine Ratio 19.7 (10-20); Calcium 9.2 mg/dl (8.6-10.3); Creatinine Clr Calc Pharmacy 95.9 ml/min
[2024-05-07 06:22] LABS: Basophils # (auto) 0.01 K/uL (0.00-0.20); Basophils % (auto) 0.2 %; Immature Granulocytes # (auto) 0.02 K/uL (0.01-0.20); Immature Granulocytes % (auto) 0.3 %; Lymphocytes # (auto) 0.33 K/uL (1.20-3.40); Lymphocytes % (auto) 5.2 %; Monocytes # (auto) 0.21 K/uL (0.11-0.59); Monocytes % (auto) 3.3 %; Neutrophils # (auto) 5.72 K/uL (1.40-6.50); Polychromasia 1+
[2024-05-07] MEDS: predniSONE 1 MG TAB PO SCH (08:25)
[2024-05-07] MEDS: TRIAMTERENE/HCTZ 37.5/25MG TAB PO SCH (08:25)
[2024-05-07] MEDS: MULTIVITAMIN TAB PO SCH (08:26)
[2024-05-07] MEDS: LORATADINE 10 MG TAB PO SCH (08:26)
[2024-05-07] MEDS: PANTOprazole 40 MG TAB PO SCH (08:26)
[2024-05-07] MEDS: amLODIPine BESYLATE 5 MG TAB PO SCH (08:26)
[2024-05-07] MEDS: FLUTICASONE/VILANTEROL 200/25MCG 14 PUFFS/INHALER INH SCH (08:27)
[2024-05-07 11:42] VITALS: RESP 16; TEMP 97.5; O2SAT 97
[2024-05-07 13:02] VITALS: BP 133/73; PULSE 80
== END 2024-05-07 14:06 | disposition home or self-care (01) ==
LOC: ED 08:57 → 2N 16:28 → OR 16:28

== ENCOUNTER 2025-06-28 10:54 | Inpatient (IN) ==
[2025-06-28 11:36] LABS: Hematocrit (blood only) 44.0 % (42.0-52.0); Hemoglobin 13.5 g/dL (14.0-18.0); Immature Granulocytes # (auto) 0.04 K/uL (0.01-0.20); Immature Granulocytes % (auto) 0.3 %; Mean Corpuscular Hemoglobin 23.9 pg (25.0-34.0); Mean Corpuscular Volume 77.9 fL (80.0-100.0); Platelet Count 201 K/uL (130-400); RDW Standard Deviation 55.0 fL (36.4-46.3); Red Blood Count 5.65 M/uL (4.70-6.10); White Blood Count 12.59 K/ul (4.8-10.8)
--- NOTE | 2025-06-28 11:45 | XRay Report ---
XR chest 1V portable HISTORY: 79 years-old Male Chest pain, nonspecific COMPARISON: 10/30/2024 TECHNIQUE: AP view of the chest FINDINGS: Cardiac silhouette is enlarged. Aortic valvular prosthesis. No pneumothorax or large pleural effusion . Chronic blunting of the lateral right costophrenic angle. Pulmonary vascular congestion with right infrahilar and right basilar consolidation which is new from prior. Bones appear grossly intact. Chol ecystectomy. IMPRESSION: 1. Cardiomegaly with pulmonary vascular congestion. 2. Asymmetric right basilar opacities may represent atelectasis versus pneumonia. 3. Chronic right hemidiaphragmatic elevation. ACT 112: Negative or not required by law. The above report was generated using voice recognition software. It may contain grammatical, syntax o r spelling errors. Electronically signed by: Murray Almaguer M.D. 06/28/2025 11:43 AM
[2025-06-28] MEDS: OPTIRAY 320 125ml IV ONE (11:49)
[2025-06-28 11:54] LABS: Alanine Aminotransferase 14.0 U/L (7-52); Albumin Globulin Ratio 1.1 (0.9-2); Albumin Level 4.1 gm/dl (3.4-5.0); Alkaline Phosphatase 100.0 U/L (34-104); Anion Gap 7.0 (3-11); Bilirubin,Total 0.9 mg/dl (0.2-1.0); Blood Urea Nitrogen 17.0 mg/dl (6-23); Calcium 9.8 mg/dl (8.6-10.3); Carbon Dioxide 28.0 mmol/L (21-32); Chloride 101.0 mmol/L (98-107); Creatinine Clr Calc Pharmacy 77.1 ml/min; Globulin 3.8 gm/dl (2.5-4.0); Glucose 120.0 mg/dl (70-99(Fasting)); Potassium 3.7 mmol/L (3.5-5.1); Sodium 136.0 mmol/L (136-145); Total Protein 7.9 gm/dl (6.0-8.3)
[2025-06-28 11:56] LABS: Anisocytosis Present; Polychromasia 1+
[2025-06-28 12:13] LABS: Influenza A virus by PCR Negative (Neg); Influenza B virus by PCR Negative (Neg); SARS CoV2 RNA(COVID-19) Ceph NEGATIVE (Negative)
[2025-06-28 12:29] LABS: INR 1.1 (0.9-1.1); Partial Thromboplastin Time 27 Seconds (21-31); Prothrombin Time 11.9 Seconds (9.0-12.0)
--- NOTE | 2025-06-28 12:56 | CT Scan Report ---
CT angio chest PE protocol CT DOSE: 856.23 mGy.cm HISTORY: 79 years-old Male with ro pe. Acute shortness of breath with cough TECHNIQUE: Multiple CTA images of the chest were obtained after the intravenous administration of 119 ml Optiray. Coronal and sagittal MIPS were obtained from the axial data set and were submitted for review. All measurements were obtained according to NASCET criteria. A dose lowering technique was u tilized adhering to the principles of ALARA. COMPARISON: Chest radiograph of same day FINDINGS: CTA: Moderate cardiomegaly without pericardial effusion. Extensive coronary artery calcifications. Left at rial exclude colitis. Aortic valvular prosthesis. Atherosclerosis of the thoracic aorta without aneur ysm or dissection. Dilation of the pulmonary arteries suggestive of pulmonary arterial hypertension. No pulmonary emboli are identified. CT CHEST: Unremarkable thyroid. Subcarinal lymph nodes measure up to 1.2 cm. Right hilar lymph nodes also measu re up to 1.2 cm. Dense consolidation of the right lower lobe, most pronounced in the medial basal seg ment. There are additional patchy nodular consolidative and groundglass opacities noted bilaterally w ith relative sparing of the right upper lobe. Central airways are patent. No pneumothorax. Scattered hemangiomata noted throughout the spine. Degenerative changes of the spine without acute fracture or subluxation identified. No acute upper abdominal abnormality. Tiny hiatal hernia. No acute fracture. Degenerative changes of the spine. IMPRESSION: 1. No pulmonary emboli identified. 2. Multifocal pneumonia, most pronounced in the right lung base. Follow-up imaging after treatment co urse recommended in order to document resolution. 3. Small right parapneumonic effusion. 4. Mild mediastinal and hilar lymphadenopathy, likely reactive. ACT 112: Negative or not required by law. The above report was generated using voice recognition software. It may contain grammatical, syntax o r spelling errors. Electronically signed by: Murray Almaguer M.D. 06/28/2025 12:53 PM
--- NOTE | 2025-06-28 14:23 | History & Physical Report ---
Date of Service June 28, 2025 Assessment & Plan (1) Paroxysmal atrial fibrillation: (2) Pneumonia: (3) Hypoxia: Plan: 79 male history of CAD status post stents A-fib status post watchman's severe status post TAVR hypertension hyperlipidemia SLE on low-dose steroids restrictive lung disease alcohol abuse quit in 2017 PAD VALENCIA Who presents with shortness of breath And cough. No chest pain nausea vomiting abdominal pain or other symptoms. Found to be hypoxic And tachycardic in the ED. Initial Chest x-ray raises concern for questionable CHF exacerbation, Chronically elevated right diaphragm and questionable right lower lobe pneumonia. Subsequent CTA dem onstrates multifocal pneumonia and a small right effusion, no PE. White count elevated. Also found to be in A-fib RVR unresponsive to Cardizem bolus therefore placed on a drip. EKG nonspecific changes. Initial troponin negative. No recent hospitalizations or abx. A-fib RVR History A-fib status post watchman's. Currently not on anticoagulation secondary to history epistaxis. Telemetry K greater than 4 mag greater than 2 Cardizem drip TFTs Trend TNIs. Check BNP. Strict I/Os TTE Cardiology consultation Multifocal pneumonia Supportive care Pulmonary toilet as needed Empirical IV Levaquin (penicillin allergy) Send sputum culture if expectorates Respiratory PCR MRSA screen Acute hypoxic respiratory failure Wean O2 History CAD/PAD Resume home cardiac medications upon verification including plavix (states no longer on ASA) statin. Does not seem to be on a beta-lawrence? VALENCIA Resume iron supplement Hypertension Continue home medications Hyperlipidemia Continue statin History SLE Continue prednisone DVT prophylaxis Full code Disposition admission anticipate at least 48 hours hospitalization for IV antibiotics History of Present Illness Chief Complaint: dyspnea Primary Care Provider: Walt Caro MD 79 male history of CAD status post stents A-fib status post watchman's severe status post TAVR hypertension hyperlipidemia SLE on low-dose steroids restrictive lung disease alcohol abuse quit in 2018 PAD VALENCIA Who presents with shortness of breath And cough. No chest pain nausea vomiting abdominal pain or other symptoms. Found to be hypoxic And tachycardic in the ED. Initial Chest x-ray raises concern for questionable CHF exacerbation, Chronically elevated right diaphragm and questionable right lower lobe pneumonia. Subsequent CTA demonstrates multifocal pneumonia and a small right effusion, no PE. White count elevated. Also found to be in A-fib RVR unresponsive to Cardizem bolus therefore placed on a drip. EKG nonspecific changes. Initial troponin negative. No recent hospitalizations or abx. and daughter who is an RN at bedside. ED physicians documentation pending at time of this writing Awaiting completion of home med rec. Discussed with RN at bedside Allergies Allergy/AdvReac Type Severity Reaction Status Date / Time Penicillins Allergy Severe THROAT Verified 06/05/25 13:33 SWELLING Home Medications Medication Instructions Recorded Confirmed Type vitamins A,C,X-pkcq-yfverl 4,296 2 cap PO QAM 07/24/19 06/23/25 History mcg-226 mg-90 mg capsule (PreserVision AREDS) calcium 600 mg (as 1 tab PO HS 09/23/21 06/23/25 History carbonate)-vitamin D3 5 mcg (200 unit) tablet loratadine 10 mg tablet (Claritin) 10 mg PO QAM 09/11/22 06/23/25 History multivitamin (Daily Multi-Vitamin 1 tab PO QAM 01/18/23 06/23/25 History tablet) albuterol sulfate 90 mcg/actuation 2 puff inhalation UD PRN shortness 02/04/24 06/23/25 Rx aerosol inhaler of breath or wheezing #6.7 grams sodium chloride, sodium See Rx Instructions .Route 06/11/24 06/23/25 Rx bicarb-nasal rinse squeeze bottle .COMPLEX #50 ea with packet (Neilmed Sinus Rinse Complete with packet) fluticasone 500 mcg-salmeterol 50 1 inh inhalation BID #60 ea 08/11/24 06/23/25 Rx mcg/dose blistr powdr for inhalation (Wixela Inhub) amlodipine 5 mg tablet 5 mg PO QAM #90 tabs 09/02/24 06/23/25 Rx peg 400-propylene glycol 0.4 %-0.3 1 drp ophthalmic (eye) DAILY PRN 10/30/24 06/23/25 History % eye drops (Systane (propylene dry eyes glycol)) triamcinolone acetonide 0.1 % 1 applic topical BID PRN Rash #30 11/26/24 06/23/25 Rx topical cream grams cyclosporine 0.05 % eye drops 1 drp ophthalmic (eye) Q12H 02/02/25 06/23/25 History (Restasis MultiDose) atorvastatin 80 mg tablet (Lipitor) 80 mg PO HS #90 tabs 02/25/25 06/23/25 Rx ferrous sulfate 325 mg (65 mg 325 mg PO Q3D 03/31/25 06/23/25 History iron) tablet gabapentin 100 mg capsule 100 mg PO HS #30 caps 04/02/25 06/23/25 Rx clopidogrel 75 mg tablet 75 mg PO QAM 04/28/25 06/23/25 History triamterene 37.5 1 cap PO QAM 04/28/25 06/23/25 History mg-hydrochlorothiazide 25 mg capsule ustekinumab-auub 45 mg/0.5 mL 40 mg subcut UD psoriasis 04/28/25 06/23/25 History subcutaneous solution (Wezlana) pramipexole 0.5 mg tablet 0.5 mg PO QPM #30 tabs 05/05/25 06/23/25 Rx aspirin 81 mg tablet 81 mg PO DAILY #30 tabs 05/28/25 06/23/25 Rx prednisone 1 mg tablet 2 mg (2 x 1 mg) PO QAM #180 tabs 06/08/25 06/23/25 Rx pantoprazole 40 mg tablet,delayed 40 mg PO UD #90 tabs 06/10/25 06/23/25 Rx release (Protonix) verapamil 80 mg tablet 80 mg PO BID #180 tabs 06/16/25 06/23/25 Rx Past Med/Surg History Problem List (Updated 06/28/25 @ 14:30 by Chacha Zaidi MD) Hypoxia Pneumonia Paroxysmal atrial fibrillation Restless leg syndrome Reducible umbilical hernia Left-sided epistaxis Chronic rhinitis Right-sided epistaxis (Acute) Anemia (Acute) Vestibular migraine H/O tooth extraction Left wrist pain Sensory polyneuropathy Carpal tunnel syndrome, left upper limb Neuropathy Current use of proton pump inhibitor Bilateral carpal tunnel syndrome History of colon polyps Vision changes Psoriatic arthritis Elevated PSA Allergic rhinitis Rotator cuff impingement syndrome Degenerative cervical disc GERD (gastroesophageal reflux disease) On anticoagulant therapy plavix and eliquis daily Aortic stenosis (Chronic) Fatty liver, alcoholic (Chronic) stopped alcohol use 01/2018 Generalized osteoarthritis of multiple sites (Chronic) alf current use of systemic steroids (Chronic) Osteopenia (Chronic) Psoriasis (Chronic) Restrictive lung disease (Chronic) Solitary pulmonary nodule (Chronic) Systemic lupus erythematosus (Chronic) Vitamin D deficiency (Chronic) Lumbago (Chronic) CAD (coronary artery disease) (Chronic) Atrial flutter (Chronic) Asthma (Chronic) Dyslipidemia (Chronic) HTN (hypertension) (Chronic) COPD (chronic obstructive pulmonary disease) (Chronic) Medical History Anemia Aortic stenosis Asthma inhaler daily/prn CAD (coronary artery disease) s/p 1 TATUM to mid LAD 12/2017, "moderate residual OM1 disease, SEVERE distal RCA/PDA"; follows with [facility]-Dr. Silva 3 stents 12/2024 - Dr Silva Chronic back pain Chronic hoarseness Chronic obstructive pulmonary disease inhaler Chronic rhinitis Chronic steroid use since age 14--d/t lupus Degenerative disc disease Fatty liver stopped alcohol use 01/2018 GERD (gastroesophageal reflux disease) "always feels like I am hungy" and started iron supplement --- reason for upcoming procedure. Hearing deficit bilat. hearing aids "for TV only" History of macular degeneration no injections, just OTC meds Hx of colonic polyps Hx of myocardial infarction (02/2018) 02/2018 during heart cath @ [facility] Dr. Silva Hyperlipidemia Hypertension Nausea and vomiting after administration of anesthetic agent Nephrolithiasis Neuropathy Ocular migraine hx On anticoagulant therapy Osteopenia Paroxysmal atrial flutter follows with [facility], on clopidogrel + watchmen device Peripheral arterial disease Presence of Watchman left atrial appendage closure device (06/2024) Psoriasis Restless leg syndrome Spinal stenosis Systemic lupus erythematosus on chronic steroids, follows with rheumatology Tachycardia hx of Tubular adenoma of colon Surgical History H/O removal of neck cyst History of arthroscopy of right shoulder SLAP repair History of carpal tunnel release right/left History of colonoscopy with polypectomy (2020) History of elbow surgery right I&D History of esophagogastroduodenoscopy (EGD) History of heart artery stent (12/26/24) x3 cardiac stents placed, Dr. Silva at [facility] History of nasal cauterization History of repair of anterior cruciate ligament of left knee x2 History of repair of anterior cruciate ligament of right knee History of surgery on right wrist fx repair--no hardware History of tonsillectomy History of total left hip replacement History of total right hip replacement History of transcatheter aortic valve replacement (TAVR) (~04/2021) @ [facility]--follows with Dr. Silva History of wisdom tooth extraction Hx of cardiac catheterization 02/14/21 @ [facility] (no stents--recommended for TAVR) 02/2018 with 1 stent placed Hx of cataract surgery Hx of cholecystectomy Hx of decompression of ulnar nerve lt elbow Family History Father Skin cancer of face Cancer Mother Heart disease Other No family history of adverse response to anesthesia Right-sided epistaxis Denies family history of Colon cancer Ovarian cancer Prostate cancer Myocardial infarction Breast cancer Social History Smoking Status: Former smoker Tobacco Type: Cigarettes Age Started Using Tobacco: 22; Age Quit Using Tobacco: 28; packs per day: 0.5; Second Hand Exposure: Yes (hx); Do You Dip or Chew Tobacco: No; Hx Alcohol Use: Yes (none since ~2016) Hx Substance Use: No Preferred Language: Lithuanian Communication Ability: Effective Visual Impairment: No Limitations Hearing Ability: Use of Hearing Aid Food Order Delivery Runner Required: No Beliefs That Will Affect Care: None marital status: Current Living Situation: Spouse current occupational status: retired current occupation: Retired How many Children do You have: 2 Feels Safe at Home: Yes Childhood Exposure to Second-Hand Smoke: Yes Diet: regular during the past year weight has: remained stable Dental Care, Regularly: Yes Physical Activity Frequency: 5-6 Times per Week Seatbelt Use: always Sunscreen Use: Yes Assistive Devices: Glasses and Hearing Aid - Bilateral Review of Systems Review of Systems: Negative except as in HPI Physical Exam Physical Exam: Awake alert NAD Supple S1-S2 positive tachycardic Air entry bilaterally Soft nontender Palpable pulses Results & Data Results & Data Vital Signs (Past 12 Hours) Vital Signs Temp Pulse Resp BP Pulse Ox O2 Del Method 06/28/25 13:31 118/96 06/28/25 13:30 118 H 36 H 94 06/28/25 13:16 123/90 06/28/25 13:15 134 H 22 90 06/28/25 13:08 135/86 06/28/25 13:06 129 H 22 98 06/28/25 13:00 146 H 22 98 06/28/25 13:00 146/58 H 06/28/25 12:42 120 H 29 H 97 06/28/25 12:31 161/96 H 06/28/25 12:30 97 06/28/25 12:21 94 06/28/25 12:17 134/78 06/28/25 12:15 120 H 26 H 88 L 06/28/25 12:12 115 H 32 H 97 06/28/25 12:00 132/84 06/28/25 12:00 132/84 06/28/25 12:00 131 H 22 99 06/28/25 11:55 123/80 06/28/25 11:55 123/80 06/28/25 11:42 106 H 23 90 06/28/25 11:35 141/95 H 06/28/25 11:33 133 H 30 H 92 06/28/25 11:30 140/99 06/28/25 11:30 140/99 06/28/25 11:30 140/99 06/28/25 11:30 140/99 06/28/25 11:30 136 H 36 H 90 06/28/25 11:27 140 H 21 93 06/28/25 11:27 93 Room Air 06/28/25 11:26 142 H 06/28/25 11:25 141/98 H 06/28/25 11:03 36.4 C L 117 H 18 162/96 H 92 Room Air PG Care Time/CCT Total # of Minutes Spent Total Time Spent with Patient: Total time spent is greater than 50% in coordination of care (as documented) at patient's floor/unit and/or counseling patient: Coding Level of Care Code 49659 INT INP/OBS CARE 2/55MIN Diagnoses Paroxysmal atrial fibrillation I48.0 Pneumonia J18.9 Hypoxia R09.02
[2025-06-28] MEDS ORDERED: POLYETHYLENE (MIRALAX) 17 GM PACK PO PRN (15:53)
[2025-06-28] MEDS ORDERED: MAGNESIUM HYDROXIDE SUSP 30 ML UDC PO PRN (15:53)
[2025-06-28] MEDS ORDERED: ALBUTEROL HFA 8 GM INHALER INH PRN (15:53)
[2025-06-28] MEDS ORDERED: ACETAMINOPHEN 325 MG TAB PO PRN (15:53)
[2025-06-28] MEDS ORDERED: ARTIFICIAL TEARS OP PRN (16:14)
[2025-06-28 16:15] LABS: Magnesium 2.0 mg/dl (1.7-2.4)
[2025-06-28 16:30] LABS: Thyroid Stimulating Hormone 1.062 uIu/ml (0.300-4.500)
[2025-06-28] MEDS: FERROUS SULFATE 325 MG TAB PO SCH (17:08)
[2025-06-28] MEDS: FLUTICASONE/VILANTEROL 200/25MCG 14 PUFFS/INHALER INH SCH (17:09)
[2025-06-28] MEDS: STAT IV Infusion **Titration per Protocol STA (17:12)
--- NOTE | 2025-06-28 17:39 | Emergency Department Note ---
History of Present Illness General Chief Complaint: Shortness of Breath/Dyspnea Stated Complaint: SHALLOW BREATHING/CHEST PAIN Time Seen by Provider: 06/28/25 11:16 History of Present Illness Provider Complaint: shortness of breath and cough Onset (ago): week(s) (1) Consistency/Duration: + progressively worsening Relieved By: + nothing Exacerbated By: + exertion and + coughing Context: + recent illness Known history of: COPD Associated symptoms: + chest pain, + sputum production and + chest congestion; no wheezing, no orthopnea, no palpitations or no hemoptysis Home Medications Medication Instructions Recorded Confirmed Type vitamins A,C,J-gilj-jtexop 4,296 2 cap PO QAM 07/24/19 06/28/25 History mcg-226 mg-90 mg capsule (PreserVision AREDS) calcium 600 mg (as 1 tab PO HS 09/23/21 06/28/25 History carbonate)-vitamin D3 5 mcg (200 unit) tablet loratadine 10 mg tablet (Claritin) 10 mg PO QAM 09/11/22 06/28/25 History multivitamin (Daily Multi-Vitamin 1 tab PO QAM 01/18/23 06/28/25 History tablet) albuterol sulfate 90 mcg/actuation 2 puff inhalation UD PRN shortness 02/04/24 06/28/25 Rx aerosol inhaler of breath or wheezing #6.7 grams sodium chloride, sodium See Rx Instructions .Route 06/11/24 06/28/25 Rx bicarb-nasal rinse squeeze bottle .COMPLEX #50 ea with packet (Neilmed Sinus Rinse Complete with packet) fluticasone 500 mcg-salmeterol 50 1 inh inhalation BID #60 ea 08/11/24 06/28/25 Rx mcg/dose blistr powdr for inhalation (Wixela Inhub) amlodipine 5 mg tablet 5 mg PO QAM #90 tabs 09/02/24 06/28/25 Rx peg 400-propylene glycol 0.4 %-0.3 1 drp ophthalmic (eye) DAILY PRN 10/30/24 06/28/25 History % eye drops (Systane (propylene dry eyes glycol)) triamcinolone acetonide 0.1 % 1 applic topical BID PRN Rash #30 11/26/24 06/28/25 Rx topical cream grams cyclosporine 0.05 % eye drops 1 drp ophthalmic (eye) Q12H 02/02/25 06/28/25 History (Restasis MultiDose) atorvastatin 80 mg tablet (Lipitor) 80 mg PO HS #90 tabs 02/25/25 06/28/25 Rx ferrous sulfate 325 mg (65 mg 325 mg PO Q3D 03/31/25 06/28/25 History iron) tablet gabapentin 100 mg capsule 100 mg PO HS #30 caps 04/02/25 06/28/25 Rx clopidogrel 75 mg tablet 75 mg PO QAM 04/28/25 06/28/25 History triamterene 37.5 1 cap PO QAM 04/28/25 06/28/25 History mg-hydrochlorothiazide 25 mg capsule ustekinumab-auub 45 mg/0.5 mL 40 mg subcut .[id number] psoriasis 04/28/25 06/28/25 History subcutaneous solution (Wezlana) pramipexole 0.5 mg tablet 0.5 mg PO QPM #30 tabs 05/05/25 06/28/25 Rx aspirin 81 mg tablet 81 mg PO DAILY #30 tabs 05/28/25 06/28/25 Rx prednisone 1 mg tablet 2 mg (2 x 1 mg) PO QAM #180 tabs 06/08/25 06/28/25 Rx pantoprazole 40 mg tablet,delayed 40 mg PO UD #90 tabs 06/10/25 06/28/25 Rx release (Protonix) empagliflozin 10 mg tablet 10 mg PO QAM 06/28/25 06/28/25 History (Jardiance) verapamil 80 mg tablet 80 mg PO TID 06/28/25 06/28/25 History Allergies Allergy/AdvReac Type Severity Reaction Status Date / Time Penicillins Allergy Severe THROAT Verified 06/28/25 15:26 SWELLING Past Med/Surg History Problem List (Updated 06/28/25 @ 17:38 by Gabriel Billy MD) Atrial fibrillation with rapid ventricular response (Acute) Hypoxia (Acute) Pneumonia (Acute) Paroxysmal atrial fibrillation Restless leg syndrome Reducible umbilical hernia Left-sided epistaxis Chronic rhinitis Right-sided epistaxis (Acute) Anemia (Acute) Vestibular migraine H/O tooth extraction Left wrist pain Sensory polyneuropathy Carpal tunnel syndrome, left upper limb Neuropathy Current use of proton pump inhibitor Bilateral carpal tunnel syndrome History of colon polyps Vision changes Psoriatic arthritis Elevated PSA Allergic rhinitis Rotator cuff impingement syndrome Degenerative cervical disc GERD (gastroesophageal reflux disease) On anticoagulant therapy plavix and eliquis daily Aortic stenosis (Chronic) Fatty liver, alcoholic (Chronic) stopped alcohol use 01/2018 Generalized osteoarthritis of multiple sites (Chronic) nursing home current use of systemic steroids (Chronic) Osteopenia (Chronic) Psoriasis (Chronic) Restrictive lung disease (Chronic) Solitary pulmonary nodule (Chronic) Systemic lupus erythematosus (Chronic) Vitamin D deficiency (Chronic) Lumbago (Chronic) CAD (coronary artery disease) (Chronic) Atrial flutter (Chronic) Asthma (Chronic) Dyslipidemia (Chronic) HTN (hypertension) (Chronic) COPD (chronic obstructive pulmonary disease) (Chronic) Medical History Hx of myocardial infarction (02/2018) 02/2018 during heart cath @ [facility] Dr. Silva Fatty liver stopped alcohol use 01/2018 Aortic stenosis On anticoagulant therapy GERD (gastroesophageal reflux disease) "always feels like I am hungy" and started iron supplement --- reason for upcoming procedure. 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 Silva 3 stents 12/2024 - Dr Silva Nausea and vomiting after administration of anesthetic agent Spinal stenosis Degenerative disc disease Chronic back pain Chronic hoarseness Systemic lupus erythematosus on chronic steroids, follows with rheumatology Chronic steroid use since age 14--d/t lupus Hearing deficit bilat. hearing aids "for TV only" Ocular migraine hx Hypertension Hyperlipidemia Tachycardia hx of Chronic obstructive pulmonary disease inhaler Asthma inhaler daily/prn Nephrolithiasis Tubular adenoma of colon Surgical History History of nasal cauterization History of heart artery stent (12/26/24) x3 cardiac stents placed, Dr. Silva at [facility] History of arthroscopy of right shoulder SLAP repair Hx of cataract surgery H/O removal of neck cyst Hx of decompression of ulnar nerve lt elbow History of carpal tunnel release right/left History of esophagogastroduodenoscopy (EGD) History of transcatheter aortic valve replacement (TAVR) (~04/2021[place] [facility] [place] Silva History of surgery on right wrist fx repair--no hardware History of elbow surgery right I&D History of total left hip replacement History of total right hip replacement History of colonoscopy with polypectomy (2020) History of wisdom tooth extraction History of tonsillectomy Hx of cholecystectomy History of repair of anterior cruciate ligament of right knee History of repair of anterior cruciate ligament of left knee x2 Hx of cardiac catheterization 02/14/21 @ [facility] (no stents--recommended for TAVR) 02/2018 with 1 stent placed Family History Father Skin cancer of face Cancer Mother Heart disease Other No family history of adverse response to anesthesia Right-sided epistaxis Denies family history of Colon cancer Ovarian cancer Prostate cancer Myocardial infarction Breast cancer Social History Smoking Status: Former smoker Tobacco Type: Cigarettes Age Started Using Tobacco: 22; Age Quit Using Tobacco: 28; packs per day: 0.5; Second Hand Exposure: Yes (hx); Do You Dip or Chew Tobacco: No; Hx Alcohol Use: Yes (none since ~2016) Hx Substance Use: No Preferred Language: Italian Communication Ability: Effective Visual Impairment: No Limitations Hearing Ability: Use of Hearing Aid Review Manager Required: No Beliefs That Will Affect Care: None marital status: Current Living Situation: Spouse current occupational status: retired current occupation: Retired How many Children do You have: 2 Feels Safe at Home: Yes Childhood Exposure to Second-Hand Smoke: Yes Diet: regular during the past year weight has: remained stable Dental Care, Regularly: Yes Physical Activity Frequency: 5-6 Times per Week Seatbelt Use: always Sunscreen Use: Yes Assistive Devices: Glasses and Hearing Aid - Bilateral Physical Exam 2 Vital Signs: Vital Signs - 24 hr 06/28/25 11:03 06/28/25 11:25 06/28/25 11:26 Temperature 36.4 C L Temperature Source Oral Pulse Rate 117 H 142 H Pulse Rate from Sp O2 Sensor Respiratory Rate 18 Respiratory Effort / Characteristics Non-Labored Sponta neous Respiratory Depth Normal Blood Pressure 162/96 H 141/98 H Blood Pressure Christina n 118 117 Blood Pressure Pos ition Sitting Pulse Oximetry 92 Oxygen Delivery Me thod Room Air Sepsis Recent Feve r Within 48 Hours No Sepsis New/Unexpla ined Change in Men hiral Status No Sepsis Action Take n by Nursing No Action Required 06/28/25 11:27 06/28/25 11:27 06/28/25 11:30 Temperature Temperature Source Pulse Rate 140 H 136 H Pulse Rate from Sp O2 Sensor 138 H 125 H Respiratory Rate 21 36 H Respiratory Effort / Characteristics Respiratory Depth Blood Pressure Blood Pressure Christina n Blood Pressure Pos ition Pulse Oximetry 93 93 90 Oxygen Delivery Me thod Room Air Sepsis Recent Feve r Within 48 Hours Sepsis New/Unexpla ined Change in Men hiral Status Sepsis Action Take n by Nursing 06/28/25 11:30 06/28/25 11:30 06/28/25 11:30 Temperature Temperature Source Pulse Rate Pulse Rate from Sp O2 Sensor Respiratory Rate Respiratory Effort / Characteristics Respiratory Depth Blood Pressure 140/99 140/99 140/99 Blood Pressure Christina n 123 123 123 Blood Pressure Pos ition Pulse Oximetry Oxygen Delivery Me thod Sepsis Recent Feve r Within 48 Hours Sepsis New/Unexpla ined Change in Men hiral Status Sepsis Action Take n by Nursing 06/28/25 11:30 06/28/25 11:33 06/28/25 11:35 Temperature Temperature Source Pulse Rate 133 H Pulse Rate from Sp O2 Sensor 126 H Respiratory Rate 30 H Respiratory Effort / Characteristics Respiratory Depth Blood Pressure 140/99 141/95 H Blood Pressure Christina n 123 112 Blood Pressure Pos ition Pulse Oximetry 92 Oxygen Delivery Me thod Sepsis Recent Feve r Within 48 Hours Sepsis New/Unexpla ined Change in Men hiral Status Sepsis Action Take n by Nursing 06/28/25 11:42 06/28/25 11:55 06/28/25 11:55 Temperature Temperature Source Pulse Rate 106 H Pulse Rate from Sp O2 Sensor 110 H Respiratory Rate 23 Respiratory Effort / Characteristics Respiratory Depth Blood Pressure 123/80 123/80 Blood Pressure Christina n 110 110 Blood Pressure Pos ition Pulse Oximetry 90 Oxygen Delivery Me thod Sepsis Recent Feve r Within 48 Hours Sepsis New/Unexpla ined Change in Men hiral Status Sepsis Action Take n by Nursing 06/28/25 12:00 06/28/25 12:00 06/28/25 12:00 Temperature Temperature Source Pulse Rate 131 H Pulse Rate from Sp O2 Sensor Respiratory Rate 22 Respiratory Effort / Characteristics Respiratory Depth Blood Pressure 132/84 132/84 Blood Pressure Christina n 103 103 Blood Pressure Pos ition Pulse Oximetry 99 Oxygen Delivery Me thod Sepsis Recent Feve r Within 48 Hours Sepsis New/Unexpla ined Change in Men hiral Status Sepsis Action Take n by Nursing 06/28/25 12:12 06/28/25 12:15 06/28/25 12:17 Temperature Temperature Source Pulse Rate 115 H 120 H Pulse Rate from Sp O2 Sensor 135 H 127 H Respiratory Rate 32 H 26 H Respiratory Effort / Characteristics Respiratory Depth Blood Pressure 134/78 Blood Pressure Christina n 83 Blood Pressure Pos ition Pulse Oximetry 97 88 L Oxygen Delivery Me thod Sepsis Recent Feve r Within 48 Hours Sepsis New/Unexpla ined Change in Men hiral Status Sepsis Action Take n by Nursing 06/28/25 12:21 06/28/25 12:30 06/28/25 12:31 Temperature Temperature Source Pulse Rate Pulse Rate from Sp O2 Sensor Respiratory Rate Respiratory Effort / Characteristics Respiratory Depth Blood Pressure 161/96 H Blood Pressure Chirstina n 115 Blood Pressure Pos ition Pulse Oximetry 94 97 Oxygen Delivery Me thod Sepsis Recent Feve r Within 48 Hours Sepsis New/Unexpla ined Change in Men hiral Status Sepsis Action Take n by Nursing 06/28/25 12:42 06/28/25 13:00 06/28/25 13:00 Temperature Temperature Source Pulse Rate 120 H 146 H Pulse Rate from Sp O2 Sensor 121 H 122 H Respiratory Rate 29 H 22 Respiratory Effort / Characteristics Respiratory Depth Blood Pressure 146/58 H Blood Pressure Christina n 106 Blood Pressure Pos ition Pulse Oximetry 97 98 Oxygen Delivery Me thod Sepsis Recent Feve r Within 48 Hours Sepsis New/Unexpla ined Change in Men hiral Status Sepsis Action Take n by Nursing 06/28/25 13:06 06/28/25 13:08 06/28/25 13:15 Temperature Temperature Source Pulse Rate 129 H 134 H Pulse Rate from Sp O2 Sensor 118 H Respiratory Rate 22 22 Respiratory Effort / Characteristics Respiratory Depth Blood Pressure 135/86 Blood Pressure Christina n 91 Blood Pressure Pos ition Pulse Oximetry 98 90 Oxygen Delivery Me thod Sepsis Recent Feve r Within 48 Hours Sepsis New/Unexpla ined Change in Men hiral Status Sepsis Action Take n by Nursing 06/28/25 13:16 06/28/25 13:30 06/28/25 13:31 Temperature Temperature Source Pulse Rate 118 H Pulse Rate from Sp O2 Sensor 106 H Respiratory Rate 36 H Respiratory Effort / Characteristics Respiratory Depth Blood Pressure 123/90 118/96 Blood Pressure Christina n 100 103 Blood Pressure Pos ition Pulse Oximetry 94 Oxygen Delivery Me thod Sepsis Recent Feve r Within 48 Hours Sepsis New/Unexpla ined Change in Men hiral Status Sepsis Action Take n by Nursing 06/28/25 13:45 06/28/25 13:46 06/28/25 14:00 Temperature Temperature Source Pulse Rate 123 H Pulse Rate from Sp O2 Sensor 111 H Respiratory Rate 28 H Respiratory Effort / Characteristics Respiratory Depth Blood Pressure 127/70 122/74 Blood Pressure Christina n 89 84 Blood Pressure Pos ition Pulse Oximetry 92 Oxygen Delivery Me thod Sepsis Recent Feve r Within 48 Hours Sepsis New/Unexpla ined Change in Men hiral Status Sepsis Action Take n by Nursing 06/28/25 14:00 06/28/25 14:12 06/28/25 14:15 Temperature Temperature Source Pulse Rate 127 H 124 H Pulse Rate from Sp O2 Sensor 104 H 103 H Respiratory Rate 23 22 Respiratory Effort / Characteristics Respiratory Depth Blood Pressure 117/69 Blood Pressure Christina n 102 Blood Pressure Pos ition Pulse Oximetry 94 94 Oxygen Delivery Me thod Sepsis Recent Feve r Within 48 Hours Sepsis New/Unexpla ined Change in Men hiral Status Sepsis Action Take n by Nursing 06/28/25 14:15 06/28/25 14:30 06/28/25 14:30 Temperature Temperature Source Pulse Rate 138 H 122 H Pulse Rate from Sp O2 Sensor 94 H 119 H Respiratory Rate 26 H 23 Respiratory Effort / Characteristics Respiratory Depth Blood Pressure 123/76 Blood Pressure Christina n 92 Blood Pressure Pos ition Pulse Oximetry 93 98 Oxygen Delivery Me thod Sepsis Recent Feve r Within 48 Hours Sepsis New/Unexpla ined Change in Men hiral Status Sepsis Action Take n by Nursing Physical Exam: Physical Exam GENERAL: oriented to person, place, and time. appears well-developed and well- nourished. HENT: Exam performed. - Head: Normocephalic and atraumatic. EYES: Conjunctivae and EOM are normal. Right eye exhibits no discharge. Left eye exhibits no discharge. No scleral icterus. NECK: Normal range of motion. Neck supple. No JVD present. CV: Tachycardic rate, irregular rhythm, normal heart sounds and intact distal pulses. There is no peripheral edema. Palpable radial pulses bue. PULM/CHEST: Diminished breath sounds on the right. Rhonchi bilaterally. ABD: The abdomen is soft. There is no tenderness. NEURO: Motor and sensation grossly intact. SKIN: Skin is warm and dry. He is not diaphoretic. PSYCH: normal mood and affect. Behavior is normal. Judgment and thought content normal. Course Course 1116: The patient was evaluated in room B5. A complete history and physical exam was performed Cardiac monitoring: An order was placed for continuous cardiac monitoring. The monitor shows a rate of 130-150 with atrial fibrilation rhythm interpreted by me Patient was found to be in A-fib RVR. Cardizem 15 mg IV push ordered for the patient which improved the patient's ventricular rate. Patient states he has a history of intermittent atrial fibrillation but is not had any episodes since getting a Watchman procedure done. Patient reports he is not on any blood thinners because he got really bad nosebleeds while he was on Eliquis. 1210: Nursing informing that the patient's oxygen saturation is decreasing. Patient placed on supplemental oxygen which improved the patient's oxygen saturation. Patient's ventricular rate again ranging from 110-150. Patient will be started on Cardizem drip. 1335: Vital signs stable on Cardizem drip. White blood cell count 12.59 hemoglobin 13.5 coagulation studies unremarkable. Imaging shows multifocal pneumonia most pronounced in the right lung base. Patient will be treated with antibiotics and admitted to the hospitalist team. Administered Medications Ferrous Sulfate (Ferrous Sulfate 325 Mg Tab) 325 mg PO Q72H [facility] Stop: 07/28/25 16:59 Last Admin: 06/28/25 17:08 Dose: 325 mg Documented By: DAVID Fluticasone/Vilanterol (Fluticasone/Vilanterol 200/25mcg 14 Puffs/Inhaler) 1 puffs INH DAILY [facility] Stop: 07/28/25 16:14 Last Admin: 06/28/25 17:09 Dose: 1 puffs Documented By: DAVID Diltiazem HCl 125 mg/ Dextrose 125 mls @ 7.5 mls/hr IV .[id number] [facility]; Protocol Stop: 07/28/25 12:14 Last Titration: 06/28/25 13:08 Dose: 7.5 mg/hr, 7.5 mls/hr Documented By: CARITO Co-signed By: higinio Admin: 06/28/25 12:22 Dose: 5 mg/hr, 5 mls/hr Documented By: higinio Co-signed By: CARITO Discontinued Medications Diltiazem HCl (Diltiazem Hcl 5 Mg/Ml 5 Ml Vial) 15 mg IV NOW STA Stop: 06/28/25 11:27 Last Admin: 06/28/25 11:31 Dose: 15 mg Documented By: higinio Co-signed By: CARITO Levofloxacin/Dextrose (Levaquin/D5w) 500 mg in 100 mls @ 100 mls/hr IV NOW STA Stop: 06/28/25 14:22 Last Infusion: 06/28/25 14:54 Dose: Infused Documented By: higinio Admin: 06/28/25 13:45 Dose: 100 mls/hr Documented By: higinio Ioversol (Optiray 320 125ml) 119 ml IV ONCE ONE Stop: 06/28/25 11:49 Last Admin: 06/28/25 11:49 Dose: 119 ml Documented By: CALOS Miscellaneous (Stat Iv Infusion Titration Per Protocol) 1 each N/A NOW STA Stop: 06/28/25 12:09 Last Admin: 06/28/25 17:12 Dose: Not Given Documented By: DAVID Medical Decision Making Laboratory Data Attestation: I reviewed the patient's lab results. 06/28/25 11:17 06/28/25 11:17 Lab Results 06/28/25 06/28/25 Range/Units 11:17 11:41 WBC 12.59 H (4.8-10.8) K/ul RBC 5.65 (4.70-6.10) M/uL Hgb 13.5 L (14.0-18.0) g/dL POC Hgb 13.6 L (14.0-18.0) g/dl Hct 44.0 (42.0-52.0) % POC Hct 40 L (42-52) % MCV 77.9 L (80.0-100.0) fL MCH 23.9 L (25.0-34.0) pg MCHC 30.7 L (32.0-36.0) g/dL RDW Std Deviation 55.0 H (36.4-46.3) fL RDW Coeff of Bette 20.1 H (11.5-14.5) % Plt Count 201 (130-400) K/uL MPV 9.9 (9.4-12.4) fL Immature Gran % (Auto) 0.3 % Neut % (Auto) 87.9 % Lymph % (Auto) 5.5 % Mineral % (Auto) 5.5 % Eos % (Auto) 0.6 % Baso % (Auto) 0.2 % Neut # (Auto) 11.07 H (1.40-6.50) K/uL Lymph # (Auto) 0.69 L (1.20-3.40) K/uL Mineral # (Auto) 0.69 H (0.11-0.59) K/uL Eos # (Auto) 0.08 (0.00-0.50) K/uL Baso # (Auto) 0.02 (0.00-0.20) K/uL Immature Gran # (Auto) 0.04 (0.01-0.20) K/uL Polychromasia 1+ Anisocytosis Present PT 11.9 (9.0-12.0) Seconds INR 1.1 (0.9-1.1) APTT 27 (21-31) Seconds PTT Ratio 1.0 POC Sodium 138 (135-144) mmol/L Sodium 136 (136-145) mmol/L POC Potassium 3.7 (3.3-5.0) mmol/L Potassium 3.7 (3.5-5.1) mmol/L POC Chloride 100 L (101-112) mmol/L Chloride 101 (98-107) mmol/L Carbon Dioxide 28 (21-32) mmol/L POC Total CO2 26 (24-31) mmol/L Anion Gap 7 (3-11) POC Anion Gap 17.0 (16-25) mmol/L POC BUN 18 (7-18) mg/dl BUN 17 (6-23) mg/dl Creatinine 0.87 (0.6-1.4) mg/dl POC Creatinine 1.0 (0.6-1.3) mg/dl Est Cr Clr Drug Dosing 77.1 ml/min eGFR 88.87 BUN/Creatinine Ratio 19.5 (10-20) Glucose 120 H (70-99(Fasting)) mg/dl POC Glucose (other) 105 H (70-99) mg/dl Calcium 9.8 (8.6-10.3) mg/dl POC Ioniz Calcium Ronaldo 1.15 (1.12-1.32) mmol/l Magnesium 2.0 (1.7-2.4) mg/dl Total Bilirubin 0.9 (0.2-1.0) mg/dl AST 23 (13-39) U/L ALT 14 (7-52) U/L Alkaline Phosphatase 100 (34-104) U/L Troponin I High Sens 13.1 (0-20) pg/ml B-Natriuretic Peptide 191 H (0-100) pg/ml Total Protein 7.9 (6.0-8.3) gm/dl Albumin 4.1 (3.4-5.0) gm/dl Globulin 3.8 (2.5-4.0) gm/dl Albumin/Globulin Ratio 1.1 (0.9-2) TSH 1.062 (0.300-4.500) uIu/ml SARS-CoV-2 (PCR) NEGATIVE (Negative) Influenza Type A (PCR) Negative (Neg) Influenza Type B (PCR) Negative (Neg) RSV (RT-PCR) Negative (Neg) Imaging Data Attestation: I personally reviewed and interpreted this imaging study as follows: My Impression: Chest x-ray: Possible right-sided infiltrate Radiologist's Impression: Chest X-Ray 06/28/25 11:07 XR chest 1V portable HISTORY: 79 years-old Male Chest pain, nonspecific COMPARISON: 10/30/2024 TECHNIQUE: AP view of the chest FINDINGS: Cardiac silhouette is enlarged. Aortic valvular prosthesis. No pneumothorax or large pleural effusion. Chronic blunting of the lateral right costophrenic angle. Pulmonary vascular congestion with right infrahilar and right basilar consolidation which is new from prior. Bones appear grossly intact. Cholecystectomy. IMPRESSION: 1. Cardiomegaly with pulmonary vascular congestion. 2. Asymmetric right basilar opacities may represent atelectasis versus pneumonia. 3. Chronic right hemidiaphragmatic elevation. ACT 112: Negative or not required by law. The above report was generated using voice recognition software. It may contain grammatical, syntax or spelling errors. Electronically signed by: Murray Almaguer M.D. 06/28/2025 11:43 AM Chest CTA 06/28/25 11:27 CT angio chest PE protocol CT DOSE: 856.23 mGy.cm HISTORY: 79 years-old Male with ro pe. Acute shortness of breath with cough TECHNIQUE: Multiple CTA images of the chest were obtained after the intravenous administration of 119 ml Optiray. Coronal and sagittal MIPS were obtained from the axial data set and were submitted for review. All measurements were obtained according to NASCET criteria. A dose lowering technique was utilized adhering to the principles of ALARA. COMPARISON: Chest radiograph of same day FINDINGS: CTA: Moderate cardiomegaly without pericardial effusion. Extensive coronary artery calcifications. Left atrial exclude colitis. Aortic valvular prosthesis. Atherosclerosis of the thoracic aorta without aneurysm or dissection. Dilation of the pulmonary arteries suggestive of pulmonary arterial hypertension. No pulmonary emboli are identified. CT CHEST: Unremarkable thyroid. Subcarinal lymph nodes measure up to 1.2 cm. Right hilar lymph nodes also measure up to 1.2 cm. Dense consolidation of the right lower lobe, most pronounced in the medial basal segment. There are additional patchy nodular consolidative and groundglass opacities noted bilaterally with relative sparing of the right upper lobe. Central airways are patent. No pneumothorax. Scattered hemangiomata noted throughout the spine. Degenerative changes of the spine without acute fracture or subluxation identified. No acute upper abdominal abnormality. Tiny hiatal hernia. No acute fracture. Degenerative changes of the spine. IMPRESSION: 1. No pulmonary emboli identified. 2. Multifocal pneumonia, most pronounced in the right lung base. Follow-up imaging after treatment course recommended in order to document resolution. 3. Small right parapneumonic effusion. 4. Mild mediastinal and hilar lymphadenopathy, likely reactive. ACT 112: Negative or not required by law. The above report was generated using voice recognition software. It may contain grammatical, syntax or spelling errors. Electronically signed by: Murray Almaguer M.D. 06/28/2025 12:53 PM ECG Data Attestation: I personally reviewed and interpreted this ECG as follows: Interpretation: EKG #1 at 1115: Atrial fibrillation with a rate of 127. QRS and QTc intervals are within normal limits. No ST elevation or ST depression. EKG #2 at 1134 status post Cardizem 15 mg IV push: Atrial fibrillation with a rate of 118. QRS and QTc intervals are within normal limits. No ST elevation or ST depression MDM Narrative 1116: The patient was evaluated in room B5. A complete history and physical exam was performed Cardiac monitoring: An order was placed for continuous cardiac monitoring. The monitor shows a rate of 130-150 with atrial fibrilation rhythm interpreted by me Patient was found to be in A-fib RVR. Cardizem 15 mg IV push ordered for the patient which improved the patient's ventricular rate. Patient states he has a history of intermittent atrial fibrillation but is not had any episodes since getting a Watchman procedure done. Patient reports he is not on any blood thinners because he got really bad nosebleeds while he was on Eliquis. 1210: Nursing informing that the patient's oxygen saturation is decreasing. Patient placed on supplemental oxygen which improved the patient's oxygen saturation. Patient's ventricular rate again ranging from 110-150. Patient will be started on Cardizem drip. 1335: Vital signs stable on Cardizem drip. White blood cell count 12.59 hemoglobin 13.5 coagulation studies unremarkable. Imaging shows multifocal pneumonia most pronounced in the right lung base. Patient will be treated with antibiotics and admitted to the hospitalist team. Impression & Plan Hypoxia, Pneumonia, Atrial fibrillation with rapid ventricular response Critical Care Time Critical Care Time: Yes Total Critical Care Time: 53 I have personally spent greater than 53 minutes of critical care time in the direct management of this patient. This includes bedside care, interpretation of diagnostic studies, and testing, discussion with consultants, patient, and family members, and other required patient management activities. This 53 minutes is in excess of all separately billable procedures. Discharge Plan Visit Data Chief Complaint: Shortness of Breath/Dyspnea Stated Complaint: SHALLOW BREATHING/CHEST PAIN ED Provider: Gabriel Billy Discharge Problem: Hypoxia, Pneumonia, Atrial fibrillation with rapid ventricular response Patient Disposition: Admitted As Inpatient Condition: Serious Discharge Instructions Interventions: ED Discharge Assessment Last Done: 06/28/25 15:53 Discharge Problem: Pneumonia Qualifiers: Pneumonia type: due to unspecified organism Laterality: right Lung location: u nspecified part of lung Qualified Code(s): J18.9 - Pneumonia, unspecified organism
[2025-06-28] MEDS: ATORVASTATIN 40 MG TAB PO SCH (20:59)
[2025-06-28] MEDS: PRAMIPEXOLE DIHYDROCHLO 0.5 MG TAB PO SCH (21:00)
[2025-06-28] MEDS: GABAPENTIN 100 MG CAP PO SCH (21:00)
[2025-06-28] MEDS: HEPARIN SOD 5,000 UNIT/0.5 ML VIAL SQ SCH (21:03)
[2025-06-28] MEDS: CALCIUM 600MG + VIT D 400 IU TAB PO SCH (21:58)
[2025-06-28] MEDS: SODIUM CHLORIDE 0.65% NA SOLN 45 ML (OCEAN) PRN (22:58)
[2025-06-29] MEDS: CEROVITE ADV FORMULA TAB PO SCH (08:28)
[2025-06-29] MEDS: CLOPIDOGREL BISULFATE 75 MG TAB PO SCH (08:29)
[2025-06-29] MEDS: MULTIVITAMIN TAB PO SCH (08:30)
[2025-06-29] MEDS: LORATADINE 10 MG TAB PO SCH (08:30)
[2025-06-29] MEDS: TRIAMTERENE/HCTZ 37.5/25MG TAB PO SCH (08:30)
--- NOTE | 2025-06-29 08:35 | Electrocardiogram Report ---
Test Reason : Blood Pressure : */* mmHG Vent. Rate : 118 BPM Atrial Rate : * BPM P-R Int : * ms QRS Dur : 92 ms QT Int : 272 ms P-R-T Axes : * -44 134 degrees QTcB Int : 381 ms Atrial fibrillation with rapid ventricular response Left axis deviation Nonspecific ST and T wave abnormality Abnormal ECG When compared with ECG of 23-Jun-2025 15:29, (unconfirmed) QRS axis Shifted left Confirmed by Julia Dong ([id number]) on 06/29/2025 8:35:08 AM Referred By: REFERRED SELF Confirmed By: Julia Dong
[2025-06-29] MEDS ORDERED: EMPAGLIFLOZIN 10 MG TAB PO SCH (09:00)
--- NOTE | 2025-06-29 09:45 | Cardiology Consultation ---
Date of Consultation June 29, 2025 Assessment & Plan (1) Atrial fibrillation with rapid ventricular response: (2) CAD (coronary artery disease): (3) HTN (hypertension): (4) Elevated brain natriuretic peptide (BNP) level: Plan 1. Atrial fibrillation with RVR - Watchman present due to consistent episodes of epistaxis. Initially presented as aflutter which self terminated in 12/2017. Most recent court monitor from 03/2025 reveals persistent afib with suboptimal rate control. He was recently cardioverted 05/2025 which the patient states only last several days. During his most recent office visit, a consult for an afib ablation was placed for Karen. - On verapamil 80mg TID at home. He is unable to tolerate long acting doses due to bradycardia. He is currently on IV Cardizem drip, this can be continued for the time being though likely will not be successful on its own. - Will add Metoprol succ 50mg daily. Surely some of his elevated rate is infection driven and should subside as the antibiotics take effect - continue telemetry monitoring 2. CAD s/p PCI TATUM prox mid LAD (12/2017) DESx3 to RCA, PDA (12/2024) - slight elevation in HS troponin likely 2/2 underlying afib rvr. - continue aspirin, Plavix, high intensity statin therapy. Beta lawrence will be initiated 3. Elevated BNP - This is a slight elevated of 191. There is parapneumonic effusion present to the right lung base. - I would expect this to resolve as the infection resolves. - He otherwise appears to be euvolemic. 4. 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 HTN - BP has been well controlled. Continue current regimen Supervising Physician Co-Signing Physician Notes Chart reviewed and patient discussed with Deloris Parikh. Agree with her documentation. He appears to have tachybradycardia syndrome with paroxysmal atrial fibrillation with rapid heart rate and historically sinus bradycardia limiting use of AV pacheco blocking medications. This may place us in a difficult position, I would recommend controlling his rate with medications (currently IV diltiazem and p.o. metoprolol succinate started this morning), if he has symptomatic bradycardia our options will be to implant a pacemaker (which is often not unreasonable) or consider ablation. We will need to discontinue the diltiazem at some point and I am going to do that this afternoon. I am going to reinstitute his outpatient verapamil dose and we can see what happens with his heart rate overnight. History of Present Illness Reason for Consultation: afib rvr Attending Physician: Liam Momin MD History of Present Illness Zach is a 79 year old male with a past medical history of persistent AF post watchman due to epistaxis, multivessel CAD post multivessel stenting and severe post TAVR, lupus, inflammatory/restrictive lung disease, GERD, hyperlipidemia, hypertension who was admitted on 06/28/25 with complaints of dyspnea on exertion and chest discomfort. He noticed the stated symptoms beginning on 06/24/25. His dyspnea with exertion progressed to the point that he was becoming winded with basic ADLs which is still an apparent issue as he stated he became short of breath while ambulating to the rest room this morning. The chest discomfort he describes as a, "tightness," which is localized to the substernal region. It is a dull, consistent pain that worsens when he takes in a deep breath. There is no radiati on of said discomfort. He does not endorse any diaphoreses, nausea or vomiting. He does have a consistent, harsh cough. In the ER, his EKG revealed A-fib with an elevated rate of 118bpm. There was no obvious ischemic concern. It appears he was give 15mg of IV push Cardizem in attempts to break his elevated heart rate though this was not successful. A Cardizem drip was initiated which he remains on at this time at 7.5mg/hr. His initial HS troponin was 13.1 followed by 35.8. Slightly elevated of BNP at 191. A CTA of the chest was performed revealing multifocal pneumonia with pronouncement at the right lung base with an associated right parapneumonic effusion. He is receiving levofloxacin for his underlying infection. His telemetry review since admission shows consistent afib with rates mainly the 120s. At times, his rate will increase into the 160s. Per review, he wore a court monitor in March 2025. Consistent afib was present with an average rate of 111bpm. It appears he has been on verapamil TID as he was unable to tolerate a long acting dose due to bradycardia when not in afib. He had a PRAKASH completed on 11/8/25. LVH. EF 65 to 60%. Well seated TAVR and Watchman device. Allergies Allergy/AdvReac Type Severity Reaction Status Date / Time Penicillins Allergy Severe THROAT Verified 06/28/25 15:26 SWELLING Home Medications Medication Instructions Recorded Confirmed Type vitamins A,C,F-zbsf-gkbtjh 4,296 2 cap PO QAM 07/24/19 06/28/25 History mcg-226 mg-90 mg capsule (PreserVision AREDS) calcium 600 mg (as 1 tab PO HS 09/23/21 06/28/25 History carbonate)-vitamin D3 5 mcg (200 unit) tablet loratadine 10 mg tablet (Claritin) 10 mg PO QAM 09/11/22 06/28/25 History multivitamin (Daily Multi-Vitamin 1 tab PO QAM 01/18/23 06/28/25 History tablet) albuterol sulfate 90 mcg/actuation 2 puff inhalation UD PRN shortness 02/04/24 06/28/25 Rx aerosol inhaler of breath or wheezing #6.7 grams sodium chloride, sodium See Rx Instructions .Route 06/11/24 06/28/25 Rx bicarb-nasal rinse squeeze bottle .COMPLEX #50 ea with packet (Neilmed Sinus Rinse Complete with packet) fluticasone 500 mcg-salmeterol 50 1 inh inhalation BID #60 ea 08/11/24 06/28/25 Rx mcg/dose blistr powdr for inhalation (Wixela Inhub) amlodipine 5 mg tablet 5 mg PO QAM #90 tabs 09/02/24 06/28/25 Rx peg 400-propylene glycol 0.4 %-0.3 1 drp ophthalmic (eye) DAILY PRN 10/30/24 06/28/25 History % eye drops (Systane (propylene dry eyes glycol)) triamcinolone acetonide 0.1 % 1 applic topical BID PRN Rash #30 11/26/24 06/28/25 Rx topical cream grams cyclosporine 0.05 % eye drops 1 drp ophthalmic (eye) Q12H 02/02/25 06/28/25 History (Restasis MultiDose) atorvastatin 80 mg tablet (Lipitor) 80 mg PO HS #90 tabs 02/25/25 06/28/25 Rx ferrous sulfate 325 mg (65 mg 325 mg PO Q3D 03/31/25 06/28/25 History iron) tablet gabapentin 100 mg capsule 100 mg PO HS #30 caps 04/02/25 06/28/25 Rx clopidogrel 75 mg tablet 75 mg PO QAM 04/28/25 06/28/25 History triamterene 37.5 1 cap PO QAM 04/28/25 06/28/25 History mg-hydrochlorothiazide 25 mg capsule ustekinumab-auub 45 mg/0.5 mL 40 mg subcut .[id number] psoriasis 04/28/25 06/28/25 History subcutaneous solution (Wezlana) pramipexole 0.5 mg tablet 0.5 mg PO QPM #30 tabs 05/05/25 06/28/25 Rx aspirin 81 mg tablet 81 mg PO DAILY #30 tabs 05/28/25 06/28/25 Rx prednisone 1 mg tablet 2 mg (2 x 1 mg) PO QAM #180 tabs 06/08/25 06/28/25 Rx pantoprazole 40 mg tablet,delayed 40 mg PO UD #90 tabs 06/10/25 06/28/25 Rx release (Protonix) empagliflozin 10 mg tablet 10 mg PO QAM 06/28/25 06/28/25 History (Jardiance) verapamil 80 mg tablet 80 mg PO TID 06/28/25 06/28/25 History Patient History Medical History Hx of myocardial infarction (02/2018) 02/2018 during heart cath @ [facility] Dr. Silva Fatty liver stopped alcohol use 01/2018 Aortic stenosis On anticoagulant therapy GERD (gastroesophageal reflux disease) "always feels like I am hungy" and started iron supplement --- reason for upcoming procedure. 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 Silva 3 stents 12/2024 - Dr Silva Nausea and vomiting after administration of anesthetic agent Spinal stenosis Degenerative disc disease Chronic back pain Chronic hoarseness Systemic lupus erythematosus on chronic steroids, follows with rheumatology Chronic steroid use since age 14--d/t lupus Hearing deficit bilat. hearing aids "for TV only" Ocular migraine hx Hypertension Hyperlipidemia Tachycardia hx of Chronic obstructive pulmonary disease inhaler Asthma inhaler daily/prn Nephrolithiasis Tubular adenoma of colon Surgical History History of nasal cauterization History of heart artery stent (12/26/24) x3 cardiac stents placed, Dr. Silva at [facility] History of arthroscopy of right shoulder SLAP repair Hx of cataract surgery H/O removal of neck cyst Hx of decompression of ulnar nerve lt elbow History of carpal tunnel release right/left History of esophagogastroduodenoscopy (EGD) History of transcatheter aortic valve replacement (TAVR) (~04/2021) [place] [facility] [place] Dr. Silva History of surgery on right wrist fx repair--no hardware History of elbow surgery right I&D History of total left hip replacement History of total right hip replacement History of colonoscopy with polypectomy (2020) History of wisdom tooth extraction History of tonsillectomy Hx of cholecystectomy History of repair of anterior cruciate ligament of right knee History of repair of anterior cruciate ligament of left knee x2 Hx of cardiac catheterization 02/14/21 @ [facility] (no stents--recommended for TAVR) 02/2018 with 1 stent placed Family History Father Skin cancer of face Cancer Mother Heart disease Other No family history of adverse response to anesthesia Right-sided epistaxis Denies family history of Colon cancer Ovarian cancer Prostate cancer Myocardial infarction Breast cancer Social History Smoking Status: Former smoker Tobacco Type: Cigarettes Age Started Using Tobacco: 22; Age Quit Using Tobacco: 28; packs per day: 0.5; Second Hand Exposure: Yes (hx); Do You Dip or Chew Tobacco: No; Hx Alcohol Use: No (none since ~2016) Hx Substance Use: No Preferred Language: Turkmen Communication Ability: Effective Visual Impairment: No Limitations Hearing Ability: Use of Hearing Aid Systems Specialist Required: No Beliefs That Will Affect Care: None marital status: Current Living Situation: Spouse current occupational status: retired current occupation: Retired How many Children do You have: 2 Feels Safe at Home: Yes Childhood Exposure to Second-Hand Smoke: Yes Diet: regular during the past year weight has: remained stable Dental Care, Regularly: Yes Physical Activity Frequency: 5-6 Times per Week Seatbelt Use: always Sunscreen Use: Yes Assistive Devices: None Review of Systems Review of Systems: per hpi Physical Exam Physical Exam: Physical Exam: AOx3. Mood affect appear normal. All questions appropriately. HEENT: Sclerae are anicteric. Pupils are equal and reactive to light and accommodation. Extraocular movements were intact. Neuro: Cranial nerves intact Lungs: Scattered rhonchi throughout, more pronounced to the right lung mayo. There are no rales wheezes or rhonchi. Normal respiratory effort without use of accessory muscles. Cardiac: IRIR with elevated rate. 2/6 systolic ejection murmur to right sternal border noted. Extremities: Patient has bilateral radial pulses that are equal in intensity. There is no evidence cyanosis or clubbing. There was no evidence of significant peripheral edema bilaterally. Skin: There are no rashes noted on examination today. Results & Data Vital Signs (Past 12 Hours) Vital Signs Temp Pulse Pulse Resp BP Pulse Ox O2 Del Method 06/29/25 08:15 36.3 C L 120 H 21 127/81 94 Room Air 06/29/25 04:58 36.9 C 113 H 18 109/68 92 Room Air 06/29/25 02:44 98 H 06/28/25 23:39 123 H 06/28/25 23:10 37.1 C 110 H 18 114/70 92 Room Air 06/28/25 23:01 Room Air PG Care Time/CCT Total # of Minutes Spent Total Time Spent with Patient: Total time spent is greater than 50% in coordination of care (as documented) at patient's floor/unit and/or counseling patient: Coding [place] [address] INT INP/OBS CARE 3/75MIN Patient Type Established Diagnoses Atrial fibrillation with rapid ventricular response I48.91 CAD (coronary artery disease) I25.10 Coronary Disease-Associated Artery/Lesion type: enterprise artery [place] vs. transplanted heart: enterprise heart HTN (hypertension) I10 Elevated brain natriuretic peptide (BNP) level R79.89 (2) CAD (coronary artery disease) Coronary Disease-Associated Artery/Lesion type: enterprise artery [place] vs. transplanted heart: enterprise heart
--- NOTE | 2025-06-29 09:51 | Hospitalist Progress Note ---
Date of Service June 29, 2025 Assessment & Plan (1) Paroxysmal atrial fibrillation: (2) Pneumonia: (3) Hypoxia: Plan: 79 male history of CAD status post stents A-fib status post watchman's severe status post TAVR hypertension hyperlipidemia SLE on low-dose steroids restrictive lung disease alcohol abuse quit in 2018 PAD VALENCIA Who presents with shortness of breath And cough. No chest pain nausea vomiting abdominal pain or other symptoms. Found to be hypoxic And tachycardic in the ED. Initial Chest x-ray raises concern for questionable CHF exacerbation, Chronically elevated right diaphragm and questionable right lower lobe pneumonia. Subsequent CTA dem onstrates multifocal pneumonia and a small right effusion, no PE. White count elevated. Also found to be in A-fib RVR unresponsive to Cardizem bolus therefore placed on a drip. EKG nonspecific changes. Initial troponin negative. No recent hospitalizations or abx. #Acute hypoxic respiratory failure #Multifocal Pneumonia #Restrictive lung disease -continue PCU, started on Levaquin, this should be appropriate therapy, will send a sputum culture, MRSA swab negative -Clinically stable, slow improvement supportive cares, -Respiratory therapy consult, nebs as needed although prefer to limit to avoid triggering A-fib with RVR -Currently immunosuppressed, sputum culture sent, levaquin seems appropriate thus far, trend CRP and procalcitonin #A-fib RVR - History A-fib status post watchman's. Currently not on anticoagulation secondary to history epistaxis. - Telemetry - K greater than 4 mag greater than 2 - Cardizem drip, currently with persistently labile rates, slowly improving, current drip setting 7.5 - Cardiology consult placed at the time of admission #CAD #PAD - Troponin trend unremarkable - BNP modestly elevated, no clinical signs of volume overload - TTE - Could consider gentle diuresis after the acute phase of infectious illness for cardiopulmonary optimization. - Resume home cardiac medications upon verification including plavix (states no longer on ASA) statin. Does not seem to be on a beta-lawrence? #Iron deficiency Anemia - IRON low, Resume iron supplement #Hypertension -Continue home medications -within goal range #Hyperlipidemia - Continue statin #History SLE -Continue prednisone DVT prophylaxis Full code Disposition admission anticipate at least 48 hours hospitalization for IV antibiotics Admission and Anticipated Discharge Date Admission Date: June 28, 2025 Subjective Doing okay this morning. Still has a moderately productive cough. Breathing has stabilized but has noted no significant improvement overall. States he does use inhalers at home but only once per day as a controller. Rare rescue medication use. Otherwise no new or different symptoms no new concerns or events per patient or nursing staff. He is able to eat breakfast this morning. No other concerns with bowel or bladder function. Only limited activity since admission. Physical Exam Physical Exam: GEN: A&O, NAD, Resting in bed HEENT: NCAT, MMM, no erythema NECK: No bruid of JVD RESP: Crackles posteriorly R>L, good air movement overall with minimal trapping CV: Irregular, tachycardic EXTR: No edema SKIN: No rash or pallor NEURO: A&Ox3, appropriate, no focal deficits Results & Data Results & Data Vital Signs (Past 12 Hours) Vital Signs Temp Pulse Pulse Resp BP Pulse Ox O2 Del Method 06/29/25 08:15 36.3 C L 120 H 21 127/81 94 Room Air 06/29/25 04:58 36.9 C 113 H 18 109/68 92 Room Air 06/29/25 02:44 98 H 06/28/25 23:39 123 H 06/28/25 23:10 37.1 C 110 H 18 114/70 92 Room Air 06/28/25 23:01 Room Air PG Care Time/CCT Total # of Minutes Spent Total Time Spent with Patient: Total time spent is greater than 50% in coordination of care (as documented) at patient's floor/unit and/or counseling patient: Coding Level of Care Code 39799 SUB INP/OBS CARE 2/35MIN Diagnoses Paroxysmal atrial fibrillation I48.0 Pneumonia J18.9 Laterality: right Lung location: unspecified part of lung Pneumonia type: due to unspecified organism Hypoxia R09.02 (2) Pneumonia Laterality: right Lung location: unspecified part of lung Pneumonia type: due to unspecified organism Qualified Code(s): J18.9 - Pneumonia, unspecified organism
[2025-06-29 11:00] LABS: Hematocrit (blood only) 43.3 % (42.0-52.0); Hemoglobin 13.2 g/dL (14.0-18.0); Immature Granulocytes # (auto) 0.04 K/uL (0.01-0.20); Immature Granulocytes % (auto) 0.4 %; Mean Corpuscular Hemoglobin 23.6 pg (25.0-34.0); Mean Corpuscular Volume 77.3 fL (80.0-100.0); Platelet Count 191 K/uL (130-400); RDW Standard Deviation 54.0 fL (36.4-46.3); Red Blood Count 5.60 M/uL (4.70-6.10); White Blood Count 9.38 K/ul (4.8-10.8)
[2025-06-29 11:18] LABS: Alanine Aminotransferase 15.0 U/L (7-52); Albumin Globulin Ratio 1.2 (0.9-2); Albumin Level 4.0 gm/dl (3.4-5.0); Alkaline Phosphatase 98.0 U/L (34-104); Anion Gap 9.0 (3-11); Bilirubin,Total 0.8 mg/dl (0.2-1.0); Blood Urea Nitrogen 16.0 mg/dl (6-23); Calcium 9.2 mg/dl (8.6-10.3); Carbon Dioxide 26.0 mmol/L (21-32); Chloride 99.0 mmol/L (98-107); Creatinine Clr Calc Pharmacy 81.3 ml/min; Globulin 3.3 gm/dl (2.5-4.0); Glucose 90.0 mg/dl (70-99(Fasting)); Potassium 3.2 mmol/L (3.5-5.1); Sodium 134.0 mmol/L (136-145); Total Protein 7.3 gm/dl (6.0-8.3)
[2025-06-29] MEDS: METOPROLOL SUCC 50MG EXT REL TAB PO SCH (11:57)
--- NOTE | 2025-06-29 16:23 | XCELERA ---
[id number] \\[id number]
[2025-06-29] MEDS: VERAPAMIL HCL 40 MG TAB PO SCH (20:07)
[2025-06-30 08:20] LABS: Hematocrit (blood only) 37.1 % (42.0-52.0); Hemoglobin 11.7 g/dL (14.0-18.0); Immature Granulocytes # (auto) 0.02 K/uL (0.01-0.20); Immature Granulocytes % (auto) 0.3 %; Mean Corpuscular Hemoglobin 23.8 pg (25.0-34.0); Mean Corpuscular Volume 75.6 fL (80.0-100.0); Platelet Count 175 K/uL (130-400); RDW Standard Deviation 51.8 fL (36.4-46.3); Red Blood Count 4.91 M/uL (4.70-6.10); White Blood Count 6.81 K/ul (4.8-10.8)
[2025-06-30 08:38] LABS: Anion Gap 7.0 (3-11); Blood Urea Nitrogen 17.0 mg/dl (6-23); Calcium 8.6 mg/dl (8.6-10.3); Carbon Dioxide 26.0 mmol/L (21-32); Chloride 100.0 mmol/L (98-107); Creatinine Clr Calc Pharmacy 87.5 ml/min; Glucose 88.0 mg/dl (70-99(Fasting)); Potassium 3.4 mmol/L (3.5-5.1); Sodium 133.0 mmol/L (136-145)
--- NOTE | 2025-06-30 11:28 | Cardiology Progress Note ---
Date of Service June 30, 2025 Assessment & Plan (1) Atrial fibrillation with rapid ventricular response: (2) CAD (coronary artery disease): (3) HTN (hypertension): (4) Elevated brain natriuretic peptide (BNP) level: Plan 1. Atrial fibrillation with RVR - Watchman present due to consistent episodes of epistaxis. Initially presented as aflutter which self terminated in 12/2017. Most recent industrial sweeper cleaner from 03/2025 reveals persistent afib with suboptimal rate control. He was recently cardioverted 05/2025 which the patient states only last several days. During his most recent office visit, a consult for an afib ablation was placed for Karen. The patient has not heard from [facility] yet. - His cardizem gtt was discontinued. - Metoprolol succ 50mg daily was started yesterday. Increase to 100mg a day if his BP can tolerate though his bp does appear somewhat low today. - He is on verapamil TID for ocular migraines which may be impede what we can do from a medication standpoint for his afib. Per the patient's daughter, they did try to lower his dose in the past, but his migraines returned. A pacemaker was discussed today which would allow us to better optimize his afib regimen without the concern for dropping his heart rate too much. The patient and his daughter are both leaning to this option, but the patient wishes to discuss this with his primary environmental compliance engineer, first Lisa. 2. CAD s/p PCI TATUM prox mid LAD (12/2017) DESx3 to RCA, PDA (12/2024) - slight elevation in HS troponin likely 2/2 underlying afib rvr. - continue aspirin, Plavix, high intensity statin therapy and beta lawrence. 3. Elevated BNP - This is a slight elevated of 191. There is parapneumonic effusion present to the right lung base. - I would expect this to resolve as the infection resolves. - He appears to be euvolemic. 4. 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 HTN - BP has been well controlled. Continue current regimen Admission and Anticipated Discharge Date Admission Date: June 28, 2025 Supervising Physician Co-Signing Physician Notes Patient interviewed and examined, case discussed with Deloris Parikh. Agree with her assessment. I discussed options of rate control during atrial fibrillation with the risk of bradycardia should sinus rhythm recur versus rhythm control which would require a pacemaker and medications to maintain sinus rhythm. Ablation is also consideration. At this point he is undecided, we will continue to discuss options with him. Subjective Patient seen and evaluated at bedside this morning, chart reviewed. He has no complaints this morning asides from a harsh cough. He remains in afib. Overnight, his heart rate was mainly in the 70s. It is up to the 110s this morning. I discussed the idea of a pacemaker with the patient and his daughter this morning. This would allow us to better optimize his afib with medication management. We also discussed an afib ablation which would gave to take place at a larger facility. The patient wishes to discuss this with his primary environmental compliance engineer before proceeding though it seems he is in favor of a pacemaker at this point in time. Physical Exam Physical Exam: Physical Exam: AOx3. Mood affect appear normal. All questions appropriately. HEENT: Sclerae are anicteric. Pupils are equal and reactive to light and accommodation. Extraocular movements were intact. Neuro: Cranial nerves intact Lungs: Scattered rhonchi throughout, more pronounced to the right lung mayo. There are no rales wheezes or rhonchi. Normal respiratory effort without use of accessory muscles. Cardiac: IRIR with elevated rate. 2/6 systolic ejection murmur to right sternal border noted. Extremities: Patient has bilateral radial pulses that are equal in intensity. There is no evidence cyanosis or clubbing. There was no evidence of significant peripheral edema bilaterally. Skin: There are no rashes noted on examination today. Results & Data Vital Signs (Past 12 Hours) Vital Signs Temp Pulse Pulse Resp BP Pulse Ox O2 Del Method 06/30/25 11:15 36.9 C 68 19 101/67 94 Room Air 06/30/25 08:08 36.8 C 111 H 18 125/78 97 Room Air 06/30/25 08:00 94 H 06/30/25 08:00 Room Air 06/30/25 03:11 36.6 C 98 H 18 108/66 93 Room Air 06/29/25 23:18 36.5 C 83 19 102/64 95 Room Air PG Care Time/CCT Total # of Minutes Spent Total Time Spent with Patient: Total time spent is greater than 50% in coordination of care (as documented) at patient's floor/unit and/or counseling patient: Coding [place] [address] SUB INP/OBS CARE 350MIN Patient Type Established Diagnoses Atrial fibrillation with rapid ventricular response I48.91 CAD (coronary artery disease) I25.10 Coronary Disease-Associated Artery/Lesion type: [place] artery [place] vs. transplanted heart: [place] heart HTN (hypertension) I10 Elevated brain natriuretic peptide (BNP) level R79.89 (2) CAD (coronary artery disease) Coronary Disease-Associated Artery/Lesion type: [place] artery [place] vs. transplanted heart: [place] heart
[2025-06-30] MEDS ORDERED: Nursing to Pharmacy Communication SCH (12:45)
[2025-06-30] MEDS: METOPROLOL SUCC 50MG EXT REL TAB PO ONE (13:20)
[2025-06-30] MEDS: ALBUT/IPRATROP 3MG/0.5MG NEB 3 ML VIAL NEB PRN (13:20)
[2025-06-30] MEDS: guaiFENesin 600 MG TABCR PO ONE (14:04)
--- NOTE | 2025-06-30 14:36 | Hospitalist Progress Note ---
Date of Service June 30, 2025 Assessment & Plan (1) Paroxysmal atrial fibrillation: (2) Pneumonia: (3) Hypoxia: Plan: 79 male history of CAD status post stents A-fib status post watchman's severe status post TAVR hypertension hyperlipidemia SLE on low-dose steroids restrictive lung disease alcohol abuse quit in 2018 PAD VALENCIA Who presents with shortness of breath And cough. No chest pain nausea vomiting abdominal pain or other symptoms. Found to be hypoxic And tachycardic in the ED. Initial Chest x-ray raises concern for questionable CHF exacerbation, Chronically elevated right diaphragm and questionable right lower lobe pneumonia. Subsequent CTA dem onstrates multifocal pneumonia and a small right effusion, no PE. White count elevated. Also found to be in A-fib RVR unresponsive to Cardizem bolus therefore placed on a drip. EKG nonspecific changes. Initial troponin negative. No recent hospitalizations or abx. #Acute hypoxic respiratory failure #Multifocal Pneumonia #Restrictive lung disease #Cough -continue PCU, started on Levaquin, this should be appropriate therapy, will send a sputum culture, MRSA swab negative -Clinically stable, slow improvement supportive cares, -Respiratory therapy consult, nebs as needed although prefer to limit to avoid triggering A-fib with RVR -Currently immunosuppressed, sputum culture sent, levaquin seems appropriate thus far, trend CRP and procalcitonin trending downward -Add mucinex and duonbe to help clear airways #A-fib RVR - History A-fib status post watchman's. Currently not on anticoagulation secondary to history epistaxis. - Telemetry - K greater than 4 mag greater than 2 - Cardizem drip transition to metoprolol succinate, increase to 100 if BP tolerates - Cardiology consult placed at the time of admission, see discussion. Consideration for pacemaker to provide more latitude in management of his atrial fibrillation #CAD #PAD - Troponin trend unremarkable - BNP modestly elevated, no clinical signs of volume overload - TTE no significant changes - Could consider gentle diuresis after the acute phase of infectious illness for cardiopulmonary optimization. - Resume home cardiac medications upon verification including plavix (states no longer on ASA) statin. Does not seem to be on a beta-lawrence? #Severe s/p TAVR - mild paravalvular leak on PRAKASH from 05/2025 - Euvolemic, rate and rhythm optimization as above. See cardiology consultation note appreciate mgmt #Elevated BNP - Euvolemic, continue to monitor #Iron deficiency Anemia - IRON low, Resume iron supplement # Migraine prophylaxis - He is on verapamil 3 times daily. This somewhat limits management of A-fib as above. Attempts to decrease this dose in the past and resulted in recurrent migraines. - No change in verapamil at this time #Hypertension -Continue home medications -within goal range #Hyperlipidemia - Continue statin #History SLE -Continue prednisone DVT prophylaxis Full code Disposition admission anticipate at least 48 hours hospitalization for IV antibiotics Admission and Anticipated Discharge Date Admission Date: June 28, 2025 Subjective Doing okay this morning. Strength is somewhat better than it has been but still not back to his baseline. Cough is productive at times of thick sputum but that is improved as well. Minimal wheezing. No dizziness orthostasis. Afebrile. No new or different symptoms per patient. Physical Exam Physical Exam: GEN: A&O, NAD, Resting in bed HEENT: NCAT, MMM, no erythema NECK: No bruid of JVD RESP: fine crackles posteriorly R>L, good air movement overall with minimal tr apping CV: Irregular, rate controlled EXTR: No edema SKIN: No rash or pallor NEURO: A&Ox3, appropriate, no focal deficits Results & Data Results & Data Vital Signs (Past 12 Hours) Vital Signs Temp Pulse Pulse Resp BP Pulse Ox O2 Del Method 06/30/25 13:21 87 16 95 Room Air 06/30/25 11:15 36.9 C 68 19 101/67 94 Room Air 06/30/25 08:08 36.8 C 111 H 18 125/78 97 Room Air 06/30/25 08:00 94 H 06/30/25 08:00 Room Air 06/30/25 03:11 36.6 C 98 H 18 108/66 93 Room Air Laboratory Results 06/30/25 06/30/25 07:52 05:21 WBC 6.81 RBC 4.91 Hgb 11.7 L Hct 37.1 L MCV 75.6 L MCH 23.8 L MCHC 31.5 L RDW Std Deviation 51.8 H RDW Coeff of Bette 19.0 H Plt Count 175 MPV 9.8 Immature Gran % (Auto) 0.3 Neut % (Auto) 77.1 Lymph % (Auto) 12.5 [place] % (Auto) 7.8 Eos % (Auto) 1.9 Baso % (Auto) 0.4 Neut # (Auto) 5.25 Lymph # (Auto) 0.85 L [place] # (Auto) 0.53 Eos # (Auto) 0.13 Baso # (Auto) 0.03 Immature Gran # (Auto) 0.02 Sodium 133 L Potassium 3.4 L Chloride 100 Carbon Dioxide 26 Anion Gap 7 BUN 17 Creatinine 0.77 Est Cr Clr Drug Dosing 87.5 eGFR 92.21 BUN/Creatinine Ratio 22.1 H Glucose 88 Calcium 8.6 Magnesium 2.0 C-Reactive Protein 11.46 H Procalcitonin 0.09 PG Care Time/CCT Total # of Minutes Spent Total Time Spent with Patient: Total time spent is greater than 50% in coordination of care (as documented) at patient's floor/unit and/or counseling patient: Coding Level of Care Code 14167 SUB INP/OBS CARE 2/35MIN Diagnoses Paroxysmal atrial fibrillation I48.0 Pneumonia J18.9 Laterality: right Lung location: unspecified part of lung Pneumonia type: due to unspecified organism Hypoxia R09.02 (2) Pneumonia Laterality: right Lung location: unspecified part of lung Pneumonia type: due to unspecified organism Qualified Code(s): J18.9 - Pneumonia, unspecified organism
[2025-06-30] MEDS: guaiFENesin 600 MG TABCR PO SCH (20:31)
[2025-06-30] MEDS ORDERED: COUGH DROP (SUGAR FREE) LOZ 24 LOZ/1 BOX BUCCAL PRN (20:40)
[2025-07-01 06:18] LABS: Hematocrit (blood only) 35.6 % (42.0-52.0); Hemoglobin 11.4 g/dL (14.0-18.0); Immature Granulocytes # (auto) 0.02 K/uL (0.01-0.20); Immature Granulocytes % (auto) 0.3 %; Mean Corpuscular Hemoglobin 24.3 pg (25.0-34.0); Mean Corpuscular Volume 75.9 fL (80.0-100.0); Platelet Count 178 K/uL (130-400); RDW Standard Deviation 51.5 fL (36.4-46.3); Red Blood Count 4.69 M/uL (4.70-6.10); White Blood Count 6.34 K/ul (4.8-10.8)
[2025-07-01 06:40] LABS: Alanine Aminotransferase 20.0 U/L (7-52); Albumin Globulin Ratio 1.1 (0.9-2); Albumin Level 3.3 gm/dl (3.4-5.0); Alkaline Phosphatase 80.0 U/L (34-104); Anion Gap 6.0 (3-11); Bilirubin,Total 0.6 mg/dl (0.2-1.0); Blood Urea Nitrogen 21.0 mg/dl (6-23); Calcium 8.8 mg/dl (8.6-10.3); Carbon Dioxide 28.0 mmol/L (21-32); Chloride 101.0 mmol/L (98-107); Creatinine Clr Calc Pharmacy 72.7 ml/min; Globulin 3.0 gm/dl (2.5-4.0); Glucose 91.0 mg/dl (70-99(Fasting)); Magnesium 2.0 mg/dl (1.7-2.4); Potassium 3.6 mmol/L (3.5-5.1); Sodium 135.0 mmol/L (136-145); Total Protein 6.3 gm/dl (6.0-8.3)
[2025-07-01] MEDS: METOPROLOL SUCC 50MG EXT REL TAB PO SCH (08:43)
--- NOTE | 2025-07-01 09:58 | Cardiology Progress Note ---
Date of Service July 01, 2025 Assessment & Plan (1) Atrial fibrillation with rapid ventricular response: (2) CAD (coronary artery disease): (3) HTN (hypertension): (4) Elevated brain natriuretic peptide (BNP) level: Plan 1. Atrial fibrillation with RVR; persistent - Watchman present due to consistent episodes of epistaxis. Initially presented as aflutter which self terminated in 12/2017. Most recent telemetry monitor from 03/2025 reveals persistent afib with suboptimal rate control. He was recently cardioverted 05/2025 which the patient states only last several days. During his most recent office visit, a consult for an afib ablation was placed for Karen. The patient has not heard from Karen yet. - He was on a cardizem gtt initially during the first 24 hours of hospital admission. He was started on metoprolol succ and has been titrated to 100mg daily. - He is on verapamil TID for ocular migraines which may be impede what we can do from a medication standpoint for his afib. Per the patient's daughter, they did try to lower his verapamil dose in the past, but his migraines returned. - A possibility of a pacemaker was discussed with the patient and his daughter who is a nurse. A pacemaker would allow us to better optimize his rate control while he is in afib without causing excessive bradycardia when he is in a normal rhythm or during nocturnal hours. Ultimately, the patient has elected to continue with medication management for now. Risks vs benefits were again discussed. He is open to discussing a pacemaker again in the future. - Unfortunately, his rate control continues to be suboptimal. His BP is borderline which could make additional beta lawrence therapy problematic. Cardizem does not make sense in this case as he is already on a CCB for ocular migraines. Hopefully with further resolution of infection, his heart rate will be better controlled. 2. CAD s/p PCI TATUM prox mid LAD (12/2017) DESx3 to RCA, PDA (12/2024) - slight elevation in HS troponin likely 2/2 underlying afib rvr. - continue aspirin, Plavix, high intensity statin therapy and beta lawrence. 3. Elevated BNP - This is a slight elevated of 191. There is parapneumonic effusion present to the right lung base. - I would expect this to resolve as the infection resolves. - He appears to be euvolemic. 4. 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 HTN - BP has been well controlled. Continue current regimen Admission and Anticipated Discharge Date Admission Date: June 28, 2025 Supervising Physician Co-Signing Physician Notes Patient seen and assessment and plan reviewed with Deloris Parikh. Agree with her assessment. This is probably a good compromise between rate control and hypotension, I do not think we can go up much on heart rate control without causing significant hypotension. If he converts to sinus rhythm he will probably be very slow, if he remains in atrial fibrillation and cannot tolerate rate control we will have to consider pacemaker implantation and AV pacheco ablation. Subjective Patient seen and evaluated at bedside, chart reviewed. Patient states overall he is feeling better. He complains of a harsh, productive cough with occasional, scant hemoptysis. He denies any dizziness, chest discomfort, palpitations. He denies SOB and PYLE. Review of Systems Review of Systems: per hpi Physical Exam Physical Exam: Physical Exam: AOx3. Mood affect appear normal. All questions appropriately. HEENT: Sclerae are anicteric. Pupils are equal and reactive to light and accommodation. Extraocular movements were intact. Neuro: Cranial nerves intact Lungs: Scattered rhonchi throughout, more pronounced to the right lung mayo. There are no rales wheezes or rhonchi. Normal respiratory effort without use of accessory muscles. Cardiac: IRIR with elevated rate. 2/6 systolic ejection murmur to right st ernal border noted. Extremities: Patient has bilateral radial pulses that are equal in intensity. There is no evidence cyanosis or clubbing. There was no evidence of significant peripheral edema bilaterally. Skin: There are no rashes noted on examination today. Results & Data Vital Signs (Past 12 Hours) Vital Signs Temp Pulse Pulse Resp BP BP Pulse Ox 07/01/25 09:40 100 H 07/01/25 08:50 18 95 07/01/25 08:02 103 H 07/01/25 07:57 36.5 C 112 H 18 109/75 97 07/01/25 07:56 07/01/25 03:06 36.5 C 100 H 20 108/72 92 06/30/25 23:02 36.8 C 93 H 18 101/43 L 95 06/30/25 22:50 90 O2 Del Method 07/01/25 09:40 07/01/25 08:50 Room Air 07/01/25 08:02 07/01/25 07:57 Room Air 07/01/25 07:56 Room Air 07/01/25 03:06 Room Air 06/30/25 23:02 Room Air 06/30/25 22:50 PG Care Time/CCT Total # of Minutes Spent Total Time Spent with Patient: Total time spent is greater than 50% in coordination of care (as documented) at patient's floor/unit and/or counseling patient: [place]oding [place] [address] SUB INP/OBS CARE 3/50MIN Patient Type Established Diagnoses Atrial fibrillation with rapid ventricular response I48.91 CAD (coronary artery disease) I25.10 Coronary Disease-Associated Artery/Lesion type: [place] artery [place] vs. transplanted heart: [place] heart HTN (hypertension) I10 Elevated brain natriuretic peptide (BNP) level R79.89 (2) CAD (coronary artery disease) Coronary Disease-Associated Artery/Lesion type: [place] artery [place] vs. transplanted heart: [place] heart
--- NOTE | 2025-07-01 13:30 | Hospitalist Progress Note ---
Date of Service July 01, 2025 Assessment & Plan (1) Paroxysmal atrial fibrillation: (2) Pneumonia: (3) Hypoxia: Plan: 79 male history of CAD status post stents A-fib status post watchman's severe status post TAVR hypertension hyperlipidemia SLE on low-dose steroids restrictive lung disease alcohol abuse quit in 2018 PAD VALENCIA Who presents with shortness of breath And cough. No chest pain nausea vomiting abdominal pain or other symptoms. Found to be hypoxic And tachycardic in the ED. Initial Chest x-ray raises concern for questionable CHF exacerbation, Chronically elevated right diaphragm and questionable right lower lobe pneumonia. Subsequent CTA de monstrates multifocal pneumonia and a small right effusion, no PE. White count elevated. Also found to be in A-fib RVR unresponsive to Cardizem bolus therefore placed on a drip. EKG nonspecific changes. Initial troponin negative. No recent hospitalizations or abx. #Acute hypoxic respiratory failure #Multifocal Pneumonia #Restrictive lung disease #Cough -continue PCU, started on Levaquin, this should be appropriate therapy, will send a sputum culture, MRSA swab negative -Clinically stable, slow improvement supportive cares, -Respiratory therapy consult, nebs as needed although prefer to limit to avoid triggering A-fib with RVR -Currently immunosuppressed, sputum culture sent, levaquin seems appropriate thus far, trend CRP and procalcitonin trending downward -Continue mucinex and duonbe to help clear airways -His is demonstrating more air trapping and wheezing today will schedule duoneb q4hWA, xoponex in between PRN, will try to use these sparingly to avoid tr iggering afib. Continue to monitor - encourage ambulation #A-fib RVR - History A-fib status post watchman's. Currently not on anticoagulation secondary to history epistaxis. - Telemetry - K greater than 4 mag greater than 2 - Cardizem drip transition to metoprolol succinate, increase to 100 if BP tolerates - Cardiology consult placed at the time of admission, see discussion. Consideration for pacemaker to provide more latitude in management of his atrial fibrillation - subotpimal rate control. see cardiology notes discussion of pacemaker vs additional rate control, will monitor as infection is more well controlled #CAD #PAD - Troponin trend unremarkable - BNP modestly elevated, no clinical signs of volume overload - TTE no significant changes - Could consider gentle diuresis after the acute phase of infectious illness for cardiopulmonary optimization. - Resume home cardiac medications upon verification including plavix (states no longer on ASA) statin. Does not seem to be on a beta-lawrence? #Severe s/p TAVR - mild paravalvular leak on PRAKASH from 05/2025 - Euvolemic, rate and rhythm optimization as above. See cardiology consultation note appreciate mgmt #Elevated BNP - Euvolemic, continue to monitor #Iron deficiency Anemia - IRON low, Resume iron supplement # Migraine prophylaxis - He is on verapamil 3 times daily. This somewhat limits management of A-fib as above. Attempts to decrease this dose in the past and resulted in recurrent migraines. - No change in verapamil at this time #Hypertension -Continue home medications -within goal range #Hyperlipidemia - Continue statin #History SLE -Continue prednisone DVT prophylaxis Full code Disposition admission anticipate at least 48 hours hospitalization for IV antibiotics Admission and Anticipated Discharge Date Admission Date: June 28, 2025 Subjective Doing better this AM, still with quite a but of dry cough, occasionally productive, SOB improving, not on oxygen since admit. Able to ambulate and improving. Eeating and drinking well. no concerns with bowel or bladder function Physical Exam Physical Exam: Physical Exam: AOx3. Mood affect appear normal. All questions appropriately. HEENT: Sclerae are anicteric. Pupils are equal and reactive to light and accommodation. Extraocular movements were intact. Neuro: Cranial nerves intact Lungs: Scattered rhonchi throughout, more pronounced to the right lung mayo. There are no rales wheezes or rhonchi. Normal respiratory effort without use of accessory muscles. Cardiac: IRIR with elevated rate. 2/6 systolic ejection murmur to right sternal border noted. Extremities: Patient has bilateral radial pulses that are equal in intensity. There is no evidence cyanosis or clubbing. There was no evidence of significant peripheral edema bilaterally. Skin: There are no rashes noted on examination today. Results & Data Results & Data Vital Signs (Past 12 Hours) Vital Signs Temp Pulse Pulse Resp BP BP Pulse Ox 07/01/25 11:50 36.2 C L 84 18 96/67 L 98 07/01/25 09:40 100 H 07/01/25 08:50 18 95 07/01/25 08:02 103 H 07/01/25 07:57 36.5 C 112 H 18 109/75 97 07/01/25 07:56 07/01/25 03:06 36.5 C 100 H 20 108/72 92 O2 Del Method 07/01/25 11:50 Room Air 07/01/25 09:40 07/01/25 08:50 Room Air 07/01/25 08:02 07/01/25 07:57 Room Air 07/01/25 07:56 Room Air 07/01/25 03:06 Room Air Laboratory Results 07/01/25 05:55 WBC 6.34 RBC 4.69 L Hgb 11.4 L Hct 35.6 L MCV 75.9 L MCH 24.3 L MCHC 32.0 RDW Std Deviation 51.5 H RDW Coeff of Bette 18.6 H Plt Count 178 MPV 10.3 Immature Gran % (Auto) 0.3 Neut % (Auto) 72.1 Lymph % (Auto) 16.4 [place] % (Auto) 8.8 Eos % (Auto) 2.2 Baso % (Auto) 0.2 Neut # (Auto) 4.57 Lymph # (Auto) 1.04 L [place] # (Auto) 0.56 Eos # (Auto) 0.14 Baso # (Auto) 0.01 Immature Gran # (Auto) 0.02 Sodium 135 L Potassium 3.6 Chloride 101 Carbon Dioxide 28 Anion Gap 6 BUN 21 Creatinine 0.93 Est Cr Clr Drug Dosing 72.7 eGFR 84.57 BUN/Creatinine Ratio 22.6 H Glucose 91 Calcium 8.8 Magnesium 2.0 Total Bilirubin 0.6 AST 28 ALT 20 Alkaline Phosphatase 80 C-Reactive Protein 6.88 H Total Protein 6.3 Albumin 3.3 L Globulin 3.0 Albumin/Globulin Ratio 1.1 Procalcitonin 0.08 PG Care Time/CCT Total # of Minutes Spent Total Time Spent with Patient: Total time spent is greater than 50% in coordination of care (as documented) at patient's floor/unit and/or counseling patient: Coding Level of Care Code 78230 SUB INP/OBS CARE 235MIN Diagnoses Paroxysmal atrial fibrillation I48.0 Pneumonia J18.9 Laterality: right Lung location: unspecified part of lung Pneumonia type: due to unspecified organism Hypoxia R09.02 (2) Pneumonia Laterality: right Lung location: unspecified part of lung Pneumonia type: due to unspecified organism Qualified Code(s): J18.9 - Pneumonia, unspecified organism
[2025-07-01] MEDS: ALBUT/IPRATROP 3MG/0.5MG NEB 3 ML VIAL NEB PRN (15:06)
[2025-07-01] MEDS ORDERED: ONDANSETRON INJ 2 MG/ML 2 ML VIAL IV PRN (17:26)
--- NOTE | 2025-07-02 08:35 | Electrocardiogram Report ---
Test Reason : Blood Pressure : */* mmHG Vent. Rate : 127 BPM Atrial Rate : * BPM P-R Int : * ms QRS Dur : 98 ms QT Int : 338 ms P-R-T Axes : * -54 118 degrees QTcB Int : 491 ms Atrial fibrillation with rapid ventricular response Left anterior fascicular block Nonspecific ST and T wave abnormality Abnormal ECG When compared with ECG of 23-Jun-2025 15:29, (unconfirmed) QRS axis Shifted left Confirmed by Julia Dong (Otf) on 07/02/2025 8:35:22 AM Referred By: REFERRED SELF Confirmed By: Julia Dong
--- NOTE | 2025-07-02 10:46 | Cardiology Progress Note ---
Date of Service July 02, 2025 Assessment & Plan (1) Atrial fibrillation with rapid ventricular response: (2) CAD (coronary artery disease): (3) HTN (hypertension): (4) Elevated brain natriuretic peptide (BNP) level: Plan 1. Atrial fibrillation with RVR; persistent - Watchman present due to consistent episodes of epistaxis. Initially presented as aflutter which self terminated in 12/2017. Most recent doweler from 03/2025 reveals persistent afib with suboptimal rate control. He was recently cardioverted 05/2025 which the patient states only last several days. During his most recent office visit, a consult for an afib ablation was placed for Karen. The patient has not heard from Karen yet. - He was on a cardizem gtt initially during the first 24 hours of hospital admission which has since been discontinued. - He is on verapamil TID for ocular migraines which may be impede what we can do from a medication standpoint for his afib. Per the patient's daughter, they did try to lower his verapamil dose in the past, but his migraines returned. - A possibility of a pacemaker was discussed with the patient and his daughter who is a nurse. A pacemaker would allow us to better optimize his rate control while he is in afib without causing excessive bradycardia when he is in a normal rhythm or during nocturnal hours. Ultimately, the patient has elected to continue with medication management for now. Risks vs benefits were again discussed. He is open to discussing a pacemaker again in the future. - He was started on metoprolol succ and has been titrated to 100mg daily with improved rate control. 2. CAD s/p PCI TATUM prox mid LAD (12/2017) DESx3 to RCA, PDA (12/2024) - slight elevation in HS troponin likely 2/2 underlying afib rvr. - continue aspirin, Plavix, high intensity statin therapy and beta lawrence. 3. Elevated BNP - Slight elevation at 191 on admission. Parapneumonic effusion present to the right lung base on admission - I would expect this to resolve as the infection resolves. - He appears to be euvolemic. 4. 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 HTN - BP has been well controlled. Continue current regimen Admission and Anticipated Discharge Date Admission Date: June 28, 2025 Supervising Physician Co-Signing Physician Notes Patient interviewed and examined, reviewed with Deloris Parikh and agree with her documentation. He appears to have tachybradycardia syndrome with paroxysmal atrial fibrillation with rapid heart rate and historically sinus bradycardia limiting use of AV pacheco blocking medications. He would prefer to maintain the current approach of rate control which at the moment appears to be adequate although if he returns to sinus rhythm his rate will probably be slow. His blood pressure is borderline so we cannot increase his rate controlling medications. If he becomes bradycardic in the future we may have to consider pacemaker implantation, or if we cannot control his rate adequately as an outpatient with activity we may have to consider pacemaker implantation and AV block. At this point I would discharge him on his current medical regimen and see how he does as an outpatient, he will probably require a monitor as an outpatient to determine the appropriateness of his rate control (3 days is proba steven sufficient as long as he is active while he is wearing it). Subjective Patient seen and evaluated at bedside, chart reviewed. Patient voices no complaints to me today. Telemetry from overnight reviewed, he remains in A-fib though his rate has been better controlled ranging from 80-90s. Review of Systems Review of Systems: per hpi Physical Exam Physical Exam: Physical Exam: AOx3. Mood affect appear normal. All questions appropriately. HEENT: Sclerae are anicteric. Pupils are equal and reactive to light and accommodation. Extraocular movements were intact. Neuro: Cranial nerves intact Lungs: Scattered rhonchi throughout, more pronounced to the right lung mayo. There are no rales wheezes or rhonchi. Normal respiratory effort without use of accessory muscles. Cardiac: IRIR. 2/6 systolic ejection murmur to right sternal border noted. Extremities: Patient has bilateral radial pulses that are equal in intensity. There is no evidence cyanosis or clubbing. There was no evidence of significant peripheral edema bilaterally. Skin: There are no rashes noted on examination today. Results & Data Vital Signs (Past 12 Hours) Vital Signs Temp Pulse Pulse Resp BP BP Pulse Ox 07/02/25 10:16 70 98/67 L 83/51 L 07/02/25 08:35 36.4 C L 86 17 97/63 L 98 07/02/25 07:51 07/02/25 07:32 94 H 07/02/25 03:12 36.4 C L 109 H 18 104/71 95 12/10/25 23:06 36.5 C 73 20 111/73 95 O2 Del Method 07/02/25 10:16 07/02/25 08:35 Room Air 07/02/25 07:51 Room Air 07/02/25 07:32 07/02/25 03:12 Room Air 07/01/25 23:06 Room Air PG Care Time/CCT Total # of Minutes Spent Total Time Spent with Patient: Total time spent is greater than 50% in coordination of care (as documented) at patient's floor/unit and/or counseling patient: Coding [place] [address] SUB INP/OBS CARE 2/35MIN Patient Type Established Diagnoses Atrial fibrillation with rapid ventricular response I48.91 CAD (coronary artery disease) I25.10 Coronary Disease-Associated Artery/Lesion type: [place] artery [place] vs. transplanted heart: [place]ton heart HTN (hypertension) I10 Elevated brain natriuretic peptide (BNP) level R79.89 (2) CAD (coronary artery disease) Coronary Disease-Associated Artery/Lesion type: [place] artery [place] vs. transplanted heart: nondalton heart
--- NOTE | 2025-07-02 13:37 | Hospitalist Progress Note ---
Date of Service July 02, 2025 Assessment & Plan (1) Paroxysmal atrial fibrillation: (2) Pneumonia: (3) Hypoxia: Plan: 79 male history of CAD status post stents A-fib status post watchman's severe status post TAVR hypertension hyperlipidemia SLE on low-dose steroids restrictive lung disease alcohol abuse quit in 2018 PAD VALENCIA Who presents with shortness of breath And cough. No chest pain nausea vomiting abdominal pain or other symptoms. Found to be hypoxic And tachycardic in the ED. Initial Chest x-ray raises concern for questionable CHF exacerbation, Chronically elevated right diaphragm and questionable right lower lobe pneumonia. Subsequent CTA de monstrates multifocal pneumonia and a small right effusion, no PE. White count elevated. Also found to be in A-fib RVR unresponsive to Cardizem bolus therefore placed on a drip. EKG nonspecific changes. Initial troponin negative. No recent hospitalizations or abx. #Acute hypoxic respiratory failure #Multifocal Pneumonia #Restrictive lung disease #Cough -continue PCU, started on Levaquin, this should be appropriate therapy, will send a sputum culture, MRSA swab negative -Clinically stable, slow improvement supportive cares, -Respiratory therapy consult, nebs as needed although prefer to limit to avoid triggering A-fib with RVR -Currently immunosuppressed, sputum culture sent, levaquin seems appropriate thus far, trend CRP and procalcitonin trending downward -Continue mucinex and duonbe to help clear airways -His is demonstrating more air trapping and wheezing today will schedule duoneb q4hWA, xoponex in between PRN, will try to use these sparingly to avoid tr iggering afib. Continue to monitor - Doing better from a pulmonary standpoint, continue respiratory therapy, pulmonary toilet. Nebs ambulation seem to be helping consistently #A-fib RVR - History A-fib status post watchman's. Currently not on anticoagulation secondary to history epistaxis. - Telemetry - K greater than 4 mag greater than 2 - Cardizem drip transition to metoprolol succinate, tolerating increase to 100 morning, this morning dose was delayed secondary to hypotension. Although he was asymptomatic at that time. Will continue to monitor closely. See ca rdiology notes for discussion - Cardiology consult placed at the time of admission, see discussion. Consideration for pacemaker to provide more latitude in management of his atrial fibrillation - subotpimal rate control. see cardiology notes discussion of pacemaker vs additional rate control, will monitor as infection is more well controlled #CAD #PAD - Troponin trend unremarkable - BNP modestly elevated, no clinical signs of volume overload - TTE no significant changes - Could consider gentle diuresis after the acute phase of infectious illness for cardiopulmonary optimization. - Resume home cardiac medications upon verification including plavix (states no longer on ASA) statin. Does not seem to be on a beta-lawrence? #Severe s/p TAVR - mild paravalvular leak on PRAKASH from 05/2025 - Euvolemic, rate and rhythm optimization as above. See cardiology consultation note appreciate mgmt #Elevated BNP - Euvolemic, continue to monitor #Iron deficiency Anemia - IRON low, Resume iron supplement # Migraine prophylaxis - He is on verapamil 3 times daily. This somewhat limits management of A-fib as above. Attempts to decrease this dose in the past and resulted in recurrent migraines. - No change in verapamil at this time #Hypertension -Continue home medications -within goal range #Hyperlipidemia - Continue statin #History SLE -Continue prednisone DVT prophylaxis Full code Disposition admission anticipate at least 48 hours hospitalization for IV antibiotics Admission and Anticipated Discharge Date Admission Date: June 28, 2025 Subjective Feels that the pain is doing a bit better today. Cough continues to improve but persist. He is tolerating the metoprolol increase okay with no dizziness or orthostasis but his blood pressure has been on the low side. This morning's dose was initially held secondary to relative hypotension. Otherwise no new or different symptoms. Feels as though his energy and tolerance for walking is improving. He is continuing with the nebs and so far they have not triggered his heart rate to speed up. Physical Exam Physical Exam: Physical Exam: AOx3. Mood affect appear normal. All questions appropriately. HEENT: Sclerae are anicteric. Pupils are equal and reactive to light and accommodation. Extraocular movements were intact. Neuro: Cranial nerves intact Lungs: Scattered rhonchi throughout, more pronounced to the right lung mayo. There are no rales wheezes or rhonchi. Normal respiratory effort without use of accessory muscles. Cardiac: IRIR with elevated rate. 2/6 systolic ejection murmur to right sternal border noted. Extremities: Patient has bilateral radial pulses that are equal in intensity. There is no evidence cyanosis or clubbing. There was no evidence of significant peripheral edema bilaterally. Skin: There are no rashes noted on examination today. Results & Data Results & Data Vital Signs (Past 12 Hours) Vital Signs Temp Pulse Pulse Resp BP BP Pulse Ox 07/02/25 11:39 36.6 C 88 18 90/58 L 97 07/02/25 10:16 70 98/67 L 83/51 L 07/02/25 08:35 36.4 C L 86 17 97/63 L 98 07/02/25 07:51 07/02/25 07:32 94 H 07/02/25 03:12 36.4 C L 109 H 18 104/71 95 O2 Del Method 07/02/25 11:39 Room Air 07/02/25 10:16 07/02/25 08:35 Room Air 07/02/25 07:51 Room Air 07/02/25 07:32 07/02/25 03:12 Room Air PG Care Time/CCT Total # of Minutes Spent Total Time Spent with Patient: Total time spent is greater than 50% in coordination of care (as documented) at patient's floor/unit and/or counseling patient: Coding Level of Care Code 52217 SUB INP/OBS CARE 2/35MIN Diagnoses Paroxysmal atrial fibrillation I48.0 Pneumonia J18.9 Laterality: right Lung location: unspecified part of lung Pneumonia type: due to unspecified organism Hypoxia R09.02 (2) Pneumonia Laterality: right Lung location: unspecified part of lung Pneumonia type: due to unspecified organism Qualified Code(s): J18.9 - Pneumonia, unspecified organism
[2025-07-03 06:14] LABS: Hematocrit (blood only) 38.5 % (42.0-52.0); Hemoglobin 11.9 g/dL (14.0-18.0); Immature Granulocytes # (auto) 0.04 K/uL (0.01-0.20); Immature Granulocytes % (auto) 0.6 %; Mean Corpuscular Hemoglobin 23.7 pg (25.0-34.0); Mean Corpuscular Volume 76.7 fL (80.0-100.0); Platelet Count 199 K/uL (130-400); RDW Standard Deviation 51.6 fL (36.4-46.3); Red Blood Count 5.02 M/uL (4.70-6.10); White Blood Count 6.20 K/ul (4.8-10.8)
[2025-07-03 06:29] LABS: Anion Gap 6.0 (3-11); Blood Urea Nitrogen 20.0 mg/dl (6-23); Calcium 9.2 mg/dl (8.6-10.3); Carbon Dioxide 28.0 mmol/L (21-32); Chloride 103.0 mmol/L (98-107); Creatinine Clr Calc Pharmacy 75.5 ml/min; Glucose 90.0 mg/dl (70-99(Fasting)); Magnesium 2.0 mg/dl (1.7-2.4); Potassium 3.9 mmol/L (3.5-5.1); Sodium 137.0 mmol/L (136-145)
[2025-07-03 07:58] VITALS: RESP 19; TEMP 98.1; O2SAT 95
--- NOTE | 2025-07-03 09:48 | Cardiology Progress Note ---
Date of Service July 03, 2025 Assessment & Plan (1) Atrial fibrillation with rapid ventricular response: (2) CAD (coronary artery disease): (3) HTN (hypertension): (4) Elevated brain natriuretic peptide (BNP) level: Plan 1. Atrial fibrillation with RVR; persistent - Watchman present due to consistent episodes of epistaxis. Initially presented as aflutter which self terminated in 12/2017. Most recent rn cardiac cath from 03/2025 reveals persistent afib with suboptimal rate control. He was recently cardioverted 05/2025 which the patient states only last several days. During his most recent office visit, a consult for an afib ablation was placed for Karen. The patient has not heard from Karen yet. - He was on a cardizem gtt initially during the first 24 hours of hospital admission which has since been discontinued. - He is on verapamil TID for ocular migraines which may be impede what we can do from a medication standpoint for his afib. Per the patient's daughter, they did try to lower his verapamil dose in the past, but his migraines returned. - He was started on metoprolol succ and has been titrated to 100mg daily with improved rate control though it continues to be suboptimal. His BP has been low normal during his hospitalization with the beta lawrence on board. - A possibility of a pacemaker was discussed with the patient and his daughter who is a nurse. A pacemaker would allow us to better optimize his rate control while he is in afib without causing excessive bradycardia when he is in a normal rhythm or during nocturnal hours. Ultimately, the patient has elected to continue with medication management for now. Risks vs benefits were again discussed. He is open to discussing a pacemaker again in the future. Patient wishes to continue with his current medication regimen and reassess his afib on an outpatient basis. 2. CAD s/p PCI TATUM prox mid LAD (12/2017) DESx3 to RCA, PDA (12/2024) - slight elevation in HS troponin likely 2/2 underlying afib rvr. - continue aspirin, Plavix, high intensity statin therapy and beta lawrence. 3. Elevated BNP - Slight elevation at 191 on admission. Parapneumonic effusion present to the right lung base on admission - I would expect this to resolve as the infection resolves. - He appears to be euvolemic. 4. 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 HTN - BP has been well controlled. Continue current regimen Admission and Anticipated Discharge Date Admission Date: June 28, 2025 Subjective Patient seen and evaluated at [facility] this morning, chart reviewed. Per telemetry review, he remains in afib with rates ranging from 70s-low 90s. His ROS today is negative. Review of Systems Review of Systems: per hpi Physical Exam Physical Exam: Physical Exam: AOx3. Mood affect appear normal. All questions appropriately. HEENT: Sclerae are anicteric. Pupils are equal and reactive to light and accommodation. Extraocular movements were intact. Neuro: Cranial nerves intact Lungs: Scattered rhonchi throughout, more pronounced to the right lung mayo. There are no rales wheezes or rhonchi. Normal respiratory effort without use of accessory muscles. Cardiac: IRIR. 2/6 systolic ejection murmur to right sternal border noted. Extremities: Patient has bilateral radial pulses that are equal in intensity. There is no evidence cyanosis or clubbing. There was no evidence of significant peripheral edema bilaterally. Skin: There are no rashes noted on examination today. Results & Data Vital Signs (Past 12 Hours) Vital Signs Temp Pulse Pulse Resp BP Pulse Ox O2 Del Method 07/03/25 08:00 105 H 07/03/25 07:57 36.7 C 97 H 19 102/67 95 Room Air 07/03/25 04:05 36.8 C 85 18 104/70 96 Room Air PG Care Time/CCT Total # of Minutes Spent Total Time Spent with Patient: Total time spent is greater than 50% in coordination of care (as documented) at patient's floor/unit and/or counseling patient: Coding [place] [address] SUB INP/OBS CARE 2/35MIN Patient Type Established Diagnoses Atrial fibrillation with rapid ventricular response I48.91 CAD (coronary artery disease) I25.10 Coronary Disease-Associated Artery/Lesion type: [place] artery [place] vs. transplanted heart: [place] heart HTN (hypertension) I10 Elevated brain natriuretic peptide (BNP) level R79.89 (2) CAD (coronary artery disease) Coronary Disease-Associated Artery/Lesion type: [place] artery [place] vs. transplanted heart: [place] heart
--- NOTE | 2025-07-03 11:54 | Discharge Summary ---
Discharge Summary Date of Service July 03, 2025 Principal Dx & Hospital Course #1 = Principal Diagnosis (1) Paroxysmal atrial fibrillation: (2) Pneumonia: (3) Hypoxia: 79 male history of CAD status post stents A-fib status post watchman's severe status post TAVR hypertension hyperlipidemia SLE on low-dose steroids restrictive lung disease alcohol abuse quit in 2018 PAD VALENCIA Who presents with shortness of breath And cough. No chest pain nausea vomiting abdominal pain or other symptoms. Found to be hypoxic And tachycardic in the ED. Initial Chest x-ray raises concern for questionable CHF exacerbation, Chronically elevated right diaphragm and questionable right lower lobe pneumonia. Subsequent CTA demonstrates multifocal pneumonia and a small right effusion, no PE. White count elevated. Also found to be in A-fib RVR unresponsive to Cardizem bolus therefore placed on a drip. EKG nonspecific changes. Initial troponin negative. No recent hospitalizations or abx. #Acute hypoxic respiratory failure #Multifocal Pneumonia #Restrictive lung disease #Cough -continue PCU, started on Levaquin, this should be appropriate therapy, will send a sputum culture, MRSA swab negative -Clinically stable, slow improvement supportive cares, -Respiratory therapy consult, nebs as needed although prefer to limit to avoid triggering A-fib with RVR -Currently immunosuppressed, sputum culture sent, levaquin seems appropriate thus far, trend CRP and procalcitonin trending downward -doing well over the last 48 hours of hospitalization, will continue levaquin until 07/06, continue home nebs, add tessalon for dry cough #A-fib RVR - History A-fib status post watchman's. Currently not on anticoagulation secondary to history epistaxis. - Telemetry - K greater than 4 mag greater than 2 - Cardizem drip transition to metoprolol succinate, tolerating increase to 100 morning, this morning dose was delayed secondary to hypotension. Although he was asymptomatic at that time. Will continue to monitor closely. See cardiology notes for discussion - continue metoprolol 100mg, added to o/p medication list. Follow-up with cardiology for ongoing evaluation/rate control. Discussion of potential pace maker placement #CAD #PAD - Troponin trend unremarkable - BNP modestly elevated, no clinical signs of volume overload - TTE no significant changes - Could consider gentle diuresis after the acute phase of infectious illness for cardiopulmonary optimization. - Resume home cardiac medications upon verification high dose, statin, ASA and plavix. Beta lawrence added this hospitalization #Severe s/p TAVR - mild paravalvular leak on PRAKASH from 05/2025 - Euvolemic, rate and rhythm optimization as above. See cardiology consultation note appreciate mgmt #Elevated BNP - Euvolemic, continue to monitor #Iron deficiency Anemia - IRON low, Resume iron supplement # Migraine prophylaxis - He is on verapamil 3 times daily. This somewhat limits management of A-fib as above. Attempts to decrease this dose in the past and resulted in recurrent migraines. - No change in verapamil at this time #Hypertension -Continue home medications -within goal range #Hyperlipidemia - Continue statin #History SLE -Continue prednisone Admission HPI Per Admitting Provider 79 male history of CAD status post stents A-fib status post watchman's severe status post TAVR hypertension hyperlipidemia SLE on low-dose steroids restrictive lung disease alcohol abuse quit in 2018 PAD VALENCIA Who presents with shortness of breath And cough. No chest pain nausea vomiting abdominal pain or other symptoms. Found to be hypoxic And tachycardic in the ED. Initial Chest x-ray raises concern for questionable CHF exacerbation, Chronically elevated right diaphragm and questionable right lower lobe pneumonia. Subsequent CTA demonstrates multifocal pneumonia and a small right effusion, no PE. White count elevated. Also found to be in A-fib RVR unresponsive to Cardizem bolus therefore placed on a drip. EKG nonspecific changes. Initial troponin negative. No recent hospitalizations or abx. and daughter who is an RN at bedside. ED physicians documentation pending at time of this writing Awaiting completion of home med rec. Discussed with RN at bedside Discharge Exam GEN: AOx3. Mood affect appear normal. All questions appropriately. HEENT: Sclerae are anicteric. Pupils are equal and reactive to light and accommodation. Extraocular movements were intact. Neuro: Cranial nerves intact Lungs: CTAB. There are no rales wheezes or rhonchi. Normal respiratory effort without use of accessory muscles. Cardiac: Irrregular. 2/6 systolic ejection murmur to right sternal border noted. Extremities: Patient has bilateral radial pulses that are equal in intensity. There is no evidence cyanosis or clubbing. There was no evidence of significant peripheral edema bilaterally. Skin: There are no rashes noted on examination today. Discharge Plan Discharge Items Patient Disposition: Home - Self-Care Reason For Visit: PNA Discharge Diagnosis: CAP Atrial Flutter with RVR Condition on Discharge: Good Health Concerns: Start the levaquin tomorrow and take for 2 additional days Metoprolol was added to your home medications, please take 100mg daily Follow-up in the outpatient clinic in 5-7 days for recheck Follow-up with Cardiology to discuss ongoing rate control and possible pacemaker placement Continue you home inhalers, use the tessalon perles as needed for cough Activity: Resume your previous activity Non-emergency contact: Primary Care Provider and Under Seal Operator Call non-emergency contact if: you have any medication questions, your symptoms worsen, your pain is unusual for you and you have a fever Follow-up/Referrals: Walt Caro MD [Primary Care Provider] - Diet: Heart Healthy Addtl Attending Provider Instructions: add metoprolol to medication list Pending Studies at Discharge: No Stand-Alone Forms: My [employer], Smoking Cessation Medications and DC Order Prescriptions: New metoprolol succinate 50 mg Tablet Extended Release 24 Hr 100 mg PO QAM Qty: 30 0RF levofloxacin 750 mg Tablet 750 mg PO DAILY@1100 2 Days Qty: 2 0RF benzonatate 100 mg capsule 100 mg PO TID PRN (Reason: cough) Qty: 20 0RF Continued albuterol sulfate 90 mcg/actuation HFA aerosol inhaler 2 puff INH UD PRN (Reason: shortness of breath or wheezing) Qty: 6.7 1RF Rx Instructions: 2 puffs every 4-6 hours as needed. fluticasone propion-salmeterol [Wixela Inhub] 500-50 mcg/dose blister with device 1 inh inhalation BID Qty: 60 11RF amlodipine 5 mg tablet 5 mg PO QAM Qty: 90 3RF Rx Instructions: TAKE 1 TAB EVERY MORNING triamcinolone acetonide 0.1 % cream 1 applic topical BID PRN (Reason: Rash) Qty: 30 1RF Rx Instructions: APPLY AND RUB IN A THIN FILM TO AFFECTED AREAS TWICE DAILY.(AM AND PM). atorvastatin [Lipitor] 80 mg tablet 80 mg PO HS Qty: 90 3RF gabapentin 100 mg capsule 100 mg PO HS Qty: 30 5RF Rx Instructions: start with one tablet at night .. prednisone 1 mg tablet 2 mg PO QAM Qty: 180 3RF pantoprazole [Protonix] 40 mg tablet,delayed release (DR/EC) 40 mg PO UD Qty: 90 3RF Rx Instructions: 40 mg orally bid x 6 weeks then once a day thereafter; loratadine [Claritin] 10 mg tablet 10 mg PO QAM multivitamin [Daily Multi-Vitamin] Tablet 1 tab PO QAM ferrous sulfate 325 mg (65 mg iron) tablet 325 mg PO Q3D pramipexole 0.5 mg tablet 0.5 mg PO QPM Qty: 30 6RF Neilmed Sinus Rinse Complete Packet With Rinse Device See Rx Instructions .ROUTE .COMPLEX Qty: 50 0RF Rx Instructions: Rinse nose daily both sides once; Systane (propylene glycol) 0.4-0.3 % drops 1 drp ophthalmic (eye) DAILY PRN (Reason: dry eyes) Restasis MultiDose 0.05 % drops 1 drp ophthalmic (eye) Q12H PreserVision AREDS [id number] Capsule 2 cap PO QAM calcium carbonate-vitamin D3 600 mg-5 mcg (200 unit) Tablet 1 tab PO HS aspirin 81 mg tablet 81 mg PO DAILY Qty: 30 1RF Jardiance 10 mg Tablet 10 mg PO QAM Rx Instructions: WAS GIVEN SAMPLES IN DR. OFFICE. verapamil 80 mg tablet 80 mg PO TID Wezlana 45 mg/0.5 mL Solution 40 mg SUBCUT .[id number] Rx Instructions: every 3 months clopidogrel 75 mg tablet 75 mg PO QAM triamterene-hydrochlorothiazid 37.5-25 mg capsule 1 cap PO QAM Rx Instructions: TAKE 1 CAPSULE BY MOUTH EVERY DAY IN THE MORNING Discharge Orders: Discharge Order (Routine); Ordered 07/03/25 Ordered By: Liam Randhawa/Other Patient Handouts: Metoprolol Oral Tablet, AFib Admission Data Admit Date/Time: 06/28/25 14:36 Attending Provider: Liam Momin Admit Provider: Chacha Zaidi Primary Care Provider: Walt Caro Other Providers: Chacha Zaidi; Power Miranda; Walt Falcon; Osvaldo Baig; Roni Laguna; Bassam Fulton Jr; Donny Watkins; Frannie Yung; Justa Godoy; Billy Silva; Billy Castillo; Mirta Sunshine; Zacarias Gomes; Chyna Nichols.; Zacarias Harrell; Gabe Judd; Lei Diehl; Eyal Warren; Tommie Babcock; Deloris Parikh; Heidy Quigley Hospital Stay Data Consultations 06/28/25 13:34 ED Decision to Admit Stat 06/28/25 15:53 Consult Cardiology Routine Diagnostic Imagining Performed 06/28/25 11:27 CT angio chest PE protocol Stat Pending Results Patient Have Any Pending Studies at Discharge: No Discharge Instructions Given to Patient (Per Discharging Provider) add metoprolol to medication list Total Time Total Time Spent Total Time Spent (In Minutes): 25 minutes spent at the bedside discussing results and modifications to care plan with patient. Arrangements for prescription on discharge. Reviewing new medications, discharge planning and follow-up coordination Coding Level of Care Code 30280 IN/OBS DISCH 30 MIN/LESS Diagnoses Paroxysmal atrial fibrillation I48.0 Pneumonia J18.9 Laterality: right Lung location: unspecified part of lung Pneumonia type: due to unspecified organism Hypoxia R09.02
[2025-07-03 12:04] VITALS: BP 90/58; PULSE 84
== END 2025-07-03 12:37 | disposition home or self-care (01) | DRG 308 ==
LOC: ED 10:54 → EDINP 14:36 → SUATTDRO 14:36 → EDINP 15:53 → 4W 18:36